=== PATIENT | male | born 1955 | race Caucasian/White ===

== ENCOUNTER 2024-04-28 22:22 | Inpatient (IN) | payer MEDICARE, SELFPAY ==
[2024-04-28 22:23] VITALS: BMI 25.3
[2024-04-28 22:31] VITALS: BP 135/97; PULSE 121; RESP 19; TEMP 36.4; O2SAT 96
--- NOTE | 2024-04-28 22:38 | PD.EDRME ---
Rapid Medical Screening Exam RME Arrival date/time: 04/28/24 22:22 68-year-old male with past medical history of pulmonary embolism currently on blood thinner presents to the emergency department complaining of abdominal pain with nausea and vomiting and rectal bleeding after attempted enema. Chief Complaint: Abdominal Pain Time Seen by Provider: 04/28/24 22:38 Vital signs: Vital Signs Temperature 97.6 F 04/28/24 22:31 Pulse Rate 121 H 04/28/24 22:31 Respiratory Rate 19 04/28/24 22:31 Blood Pressure 135/97 H 04/28/24 22:31 Pulse Oximetry (%) 96 04/28/24 22:31 Oxygen Delivery Method Room Air 04/28/24 22:31 Vital signs reviewed by provider: Yes
--- NOTE | 2024-04-28 22:39 | XR_ITS ---
Examination: AP chest single view Technique one AP portable upright chest single view Exam date and time: April 28, 2024 11:17 PM Indications: Chest pain today. Findings: The film is rotated RPO Normal heart size Moderate ectasia thoracic aorta No pulmonary edema or pneumonia Impression: No pneumonia or pulmonary edema
--- NOTE | 2024-04-28 22:39 | XR_ITS ---
Examination: CT abdomen with intravenous contrast CT pelvis with intravenous contrast 2-D coronal reconstructions 2-D sagittal reconstructions Date and time of exam:April 29, 2024 0008 hrs. Indications: Abdominal pain, vomiting, rectal bleeding onset today. CTDI: vol (mGy) 15.27 DLP: (mGycm) 606 Technique: Multiple axial sections of the abdomen and pelvis have been obtained. 64 slice high-resolution scanner used. 3 mm axial sections have been obtained, post intravenous injection 60 cc [id number] 2-D sagittal, coronal reconstructions obtained. Low dose protocols were performed. One or more of the following dose reduction techniques were used; automated exposure control, adjustment of the mA and/or KV according to patient size, use of iterative reconstruction technique. Findings: Significant right lower lobe pulmonary artery emboli Subcentimeter right lung pulmonary nodules Fluid distended esophagus with retrocardiac gastric hernia Subacute left-sided rib fractures 7 through 11 No focal liver lesions Gallbladder wall edema Edema and mucosal thickening involving the gastric antrum and duodenal bulb Dense abdominal aortic calcification 3.1 cm fat-containing umbilical hernia Fluid distended colon with focal narrowing in the sigmoid colon axial image 183 Contracted urinary bladder AP prostate dimension 4 cm Significant osteopenia Impression: Significant right lower lobe pulmonary artery emboli Recommend hepatobiliary sonography to confirm acute cholecystitis Antral gastritis active peptic disease duodenum bulb Distended bowel secondary to focal narrowing in the sigmoid colon, recommend colonoscopy to exclude malignant neoplasm of the sigmoid colon
--- NOTE | 2024-04-28 22:39 | EKG_ITS ---
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
[2024-04-28 23:22] LABS: Basophils # (Auto) 0.1 Thou/mm3 (0.0-0.2); Basophils % (Auto) 0 % (0-2.5); Eosinophils % (Auto) 0 % (0-10); Hemoglobin 12.9 g/dL (13.5-16.0); Immature Granulocytes % (Auto) 1 % (0-0); Immature Granulocytes Auto 0.13 Thou/mm3 (0.00-0.00); Lymphocytes # (Auto) 2.3 Thou/mm3 (1.0-4.8); Lymphocytes % (Auto) 10 % (10-50); Mean Corpuscular HGB Conc 31.5 g/dl (31.0-37.0); Mean Corpuscular Hemoglobin 26.9 pg (25.0-35.0); Mean Corpuscular Volume 85 fL (80-100); Monocytes % (Auto) 4 % (0-12); Neutrophils # (Auto) 20.1 Thou/mm3 (1.8-7.7); Neutrophils % (Auto) 85 % (37-80); Nucleated Red Blood Cell % 0 /100 WBC (0); Platelet Count 513 Thou/mm3 (140-440); RDW Standard Deviation 60.8 fL (35.1-43.9)
[2024-04-28 23:28] LABS: White Blood Count 23.6 Thou/mm3 (3.8-10.6)
[2024-04-28 23:32] LABS: INR 1.2 (0.9-1.3); Partial Thromboplastin Time 28.6 Seconds (22.0-36.0)
[2024-04-28 23:34] LABS: B-Type Natriuretic Peptide 20 pg/mL (0-100)
[2024-04-28 23:43] LABS: Alanine Aminotransferase < 7 U/L (10-49); Albumin, Serum 3.5 gm/dL (3.4-4.8); Alkaline Phosphatase 79 U/L (46-116); Anion Gap 10 (7-16); Aspartate Amino Transferase 11 U/L (0-34); BUN/Creatinine Ratio 18 Ratio (12-20); Bilirubin,Total 0.8 mg/dL (0.3-1.2); Blood Urea Nitrogen 14 mg/dL (9-23); Calcium 9.3 mg/dL (8.3-10.6); Calcium (Corrected) 9.7 mg/dL (8.5-10.1); Carbon Dioxide 26.3 mMol/L (20.0-31.0); Chloride 104 mMol/L (98-107); Creatinine (Component) 0.8 mg/dL (0.6-1.3); Estimated Creatinine Clearance 79.8 mL/min (>60); Globulin 3.4 gm/dL (2.3-3.5); Glucose 182 mg/dL (74-106); Magnesium 1.8 mg/dL (1.6-2.6); Osmolality,Calculated 284 (275-295); Potassium 3.6 mMol/L (3.4-5.1); Sodium 140 mMol/L (136-145); Total Protein 6.9 gm/dL (5.7-8.2); Troponin I < 0.002 ng/mL (0.0-0.045); eGFR > 60 See Note
[2024-04-28 23:55] LABS: LDH (Lactate Dehydrogenase) 203 U/L (120-246)
[2024-04-29] VITALS (12 sets, daily range): BP systolic 129–146; BP diastolic 76–92; PULSE 80–98; RESP 16–94; TEMP 36.2–36.8; O2SAT 92–96; BMI 25.3; BMI 25.2
[2024-04-29 01:09] LABS: Lactate (Lactic Acid) 2.6 mMol/L (0.4-2.0)
[2024-04-29 01:54] LABS: Collection Type, Urine Clean Catch; Squamous Epithelial Cell,Urine 0 /hpf (0-5)
[2024-04-29 01:59] LABS: Bilirubin,Urine Negative (Negative); Blood,Urine 1+ (Negative); Clarity,Urine Clear (Clear/Hazy); Color,Urine Yellow (Lt Yel-Yel); Culture Indicated,Urine Not Indicated; Glucose, Urine Negative (Negative); Ketones,Urine 1+ (Negative); Leukocyte Esterase,Urine Negative (Negative); Nitrite,Urine Negative (Negative); PH,Urine 6.5 (5.0-7.0); Protein,Urine 1+ (Neg - Trace); RBC,Urine 13 /hpf (0-3); Urobilinogen,Urine Negative mg/dL (0.0-1.0); WBC,Urine 6 /hpf (0-5)
--- NOTE | 2024-04-29 02:04 | PRELIM_ITS ---
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 Bibasilar atelectasis is seen. There is a small right lower lobe calcified granuloma. There are right middle and lower lobe small lung nodules, largest measuring 3 mm (axial images 1/287), stab le since the prior examination. Small left and trace right pleural effusions are noted.Again seen is moderate sized hiatal hernia is present with wall thickening of distal esophagus and gastroesophagea l junction, suggestive of reflux esophagitis, stable since the prior examination. There is mild wall thickening of pyloric antrum with mild surrounding fat stranding likely inflammatory, unchanged since the prior examination. Again seen is diffuse gallbladder wall thickening with mild pericholecystic e marta and fat stranding, unchanged since the prior examination. Again seen is 2 cm splenic hypodensi ty likely cyst. There is right renal hypodensity too small to characterize. The liver, pancreas and adrenals are unremarkable.There is an area of narrowing in the distal sigmoid colon with dilatation o f proximal large bowel loops. Prominent fluid filled small bowel loops are noted. The appendix is not visualized. The urinary bladder is not well distended with apparent wall thickening. Mildly enlarged prostate is noted. There is no free air. Trace perihepatic fluid is present.There is no adenopathy. There are subacute displaced left 7th to 10th rib fractures. Subacute nondisplaced fracture of left 11th rib is noted, stable since the prior examination. Mild to moderate degenerative changes are iden tified in the spine. Impression:Area of narrowing in the distal sigmoid colon with dilatation of prox imal large bowel loops, neoplastic or inflammatory etiology cannot be excluded. Recommend clinical co rrelation and followup with sigmoidoscopy. Right lower lobe pulmonary artery lobar and segmental thro mboembolism, also seen on the prior examination. Mild wall thickening of pyloric antrum with mild ana cristina rounding fat stranding likely inflammatory. Recommend follow-up. Diffuse gallbladder wall thickening with mild pericholecystic edema and fat stranding, unchanged since the prior examination.Other findin gs as described above. Report Electronically Signed By: Jc Frankel 04/29/2024 2:04:14 AM [EST]
--- NOTE | 2024-04-29 02:04 | PC.NURSE ---
Patient called out he is having abd pain 03/20. notified Dr. Ellis.
--- NOTE | 2024-04-29 02:40 | PD.EDABDPN ---
ED Abdominal Pain RME/HPI General Chief Complaint: Abdominal Pain Stated complaint: ABDOMINAL PAIN, VOMITING, RECTAL BLEEDING Time seen by provider: 04/28/24 22:38 Arrival date/time: 04/28/24 22:22 RME / HPI RME / HPI narrative: 04/28/24 22:22 68-year-old male with past medical history of pulmonary embolism currently on blood thinner presents to the emergency department complaining of abdominal pain with nausea and vomiting and rectal bleeding after attempted enema. ----- Dr. Ellis's Main ED Evaluation: 68yo male with a history of PE on Eliquis 10mg BID accompanied by his presents to the ED for a chief complaint of lower abdominal pain x last night. No radiation or migration. He reports associated abdominal distention, 2 episodes of N/V, diarrhea for the last 8 weeks, headache, and 50 lb weight loss over the last 8 weeks. noted there was some bleeding after the patient used an enema last night. Patient denies any fever, chills, sweating, UTI symptoms, dizziness, cough, chest pain, shortness of breath or any other associated symptoms. Denies any hx of DM or HTN. Denies any tobacco or alcohol use. No known allergies. Patient had an appointment with Dr. Lopez last week and was supposed to get a colonoscopy, but was told to wait for 6 months due to being on Eliquis. PSH includes appendectomy. Related Data Previous Rx's ?Medication ?Instructions ?Recorded ciprofloxacin HCl 0.3 % eye drops 2 drop ophthalmic (eye) Q4H #10 mL 01/20/19 Allergies Allergy/AdvReac Type Severity Reaction Status Date / Time No Known Allergies Allergy Verified 04/18/24 18:29 Review of Systems Review of Systems Systems Reviewed: All systems reviewed, normal except as documented Narrative Review of Systems: Gen: No fever, no chills, + weight loss EYES: No discharge, no visual changes, no pain HEENT: No ear pain, no congestion, no sore throat PULM: No shortness of breath, no cough, no congestion CV: No chest pain, no dyspnea on exertion, no palpitations GI: + nausea, + vomiting, + diarrhea, + pain, + distention, no constipation : No frequency, no urgency, no dysuria Musc/skel: No joint pain, no back pain Skin: No rash. Warm and dry. Psyc: No hallucinations, no depression Heme/Lymph: No easy bleeding or bruising tendencies Neuro: No weakness, + headache Past Medical History Past Medical History CARDIAC: Positive Hypercholesterolemia; Negative Cardiac Disorders or Congestive Heart Failure RESPIRATORY: Negative Chronic Obstructive Pulmonary Disease (COPD) or Asthma GENITOURINARY: Negative Renal Disease ENDOCRINE: Negative Diabetes Mellitus Type 1 or Diabetes Mellitus Type 2 HEMATOLOGIC: Negative Sickle Cell Disease Social History SMOKING STATUS: Never smoker ED Exam Narrative Physical exam: GEN. APPEARANCE: Patient is alert awake oriented x3 under no distress, laying down comfortably at 30-45?; does look acutely and chronically ill, but not toxic. Patient has good eye contact. Patient is cooperative. VITALS: All vitals were reviewed and the pulse ox is 95% on room air, which is normal according to my interpretation. HEENT: Normocephalic, atraumatic and nontender. Pupils are equal and reactive to light and accommodation. Oral mucosa are moist. NECK: Supple, nontender, no meningismus, no JVD. CHEST: Nontender on palpation, no deformity and no crepitus. CARDIOVASCULAR: Heart regular rhythm no murmur or gallop rub or extra beats; not tachycardic. LUNGS: Clear to auscultation bilaterally with symmetrical chest rise. No laboring tachypnea or wheezing. No intercostal subcostal retraction. No rales and no rhonchi. ABDOMEN: Soft, distended, tenderness mainly at the right side of the abdomen with guarding, but no rebound tenderness. There is no tenderness at the left side of the abdomen, but there is pain from the left to the right. He has a nonincarcerated umbilical hernia. GENITALIA: Not examined. RECTAL EXAM: Guaiac strongly positive. EXTREMITIES: Nontender. No edema. No cyanosis. Patient is able to move all 4 extremities well. SKIN: Warm and dry, no rashes noted. MUSCULOSKELETAL: No lumbar or midline bony tenderness. There is no CVA tenderness. No paraspinal muscle spasm or tenderness. NEURO: Cranial nerves II through XII grossly intact. There is no focalization. GCS is 15. PSYCHIATRIC: Patient is in normal mood and affect, cooperative. LYMPHATICS: No major lymphadenopathy noted. Course Course Course Narrative: CXR is ordered for determining the etiology of chest pain. 0044: Sepsis alert initiated. Orders made at this time are congruent with ED Adult Sepsis Order List. Re-evaluation is to be completed. 0330: NS IVF ordered. Quality Measures Possible source: GI tract/intra-abdominal Blood cultures ordered: yes Antibiotic ordered: Yes Pertinent labs: 04/28/24 23:04 Lactic Acid 2.6 H mMol/L (0.4-2.0) sepsis Orders Category Date Time Status CT Screening NOW Care 04/28/24 22:40 Active EKG (ED ONLY) *Do not use* NOW Care 04/28/24 22:39 Completed Consult to General Surgery Stat Cons 04/29/24 03:[address] abdomen pelvis w con Stat Exams 04/28/24 22:39 Taken EKG (ED Only) Stat Exams 04/28/24 22:39 Draft XR chest 1V portable Stat Exams 04/28/24 22:39 Completed B-Type Natriuretic Peptide Stat Lab 04/28/24 23:04 Completed Blood Culture (Lab) Stat Lab 04/29/24 01:03 Received CBC Stat Lab 04/28/24 23:04 Completed Comprehensive Metabolic Panel Stat Lab 04/28/24 23:04 Completed LDH (Lactate Dehydrogenase) Stat Lab 04/28/24 23:04 Completed Lactate (Lactic Acid) Stat Lab 04/29/24 01:03 Results Magnesium Stat Lab 04/28/24 23:04 Completed Occult Blood, Stool (LAB) Stat Lab 04/29/24 03:43 Ordered Partial Thromboplastin Time Stat Lab 04/28/24 23:04 Completed Prothrombin Time with INR Stat Lab 04/28/24 23:04 Completed Troponin I Stat Lab 04/28/24 23:04 Completed Urinalysis, C/S if Indicated Stat Lab 04/29/24 01:43 Completed Morphine Inj Med 04/29/24 03:31 Discontinued 4 mg IVP X1 ONE Ondansetron Inj [Zofran Inj] Med 04/29/24 03:31 Discontinued 4 mg IV X1 ONE Piper/Tazo 3.375 gm [Zosyn] Med 04/29/24 03:31 Discontinued 3.375 gm in 50 ml IV X1 Sodium Chloride 0.9% 1000 ml [Ns] 1,000 ml Med 04/29/24 03:31 Active IV 999 mls/hr Vital Signs Vital signs: Vital Signs Temperature 97.6 F 04/28/24 22:31 Pulse Rate 121 H 04/28/24 22:31 Respiratory Rate 19 04/28/24 22:31 Blood Pressure 135/97 H 04/28/24 22:31 Pulse Oximetry (%) 96 04/28/24 22:31 Oxygen Delivery Method Room Air 04/28/24 22:31 Procedures -ED EKG Interpretation #1: Date of EK04/28/24 Rate: 125 Interpretation: Interpreted by me EKG Impression: Normal sinus rhythm, No ectopy, Sinus tachycardia, Normal intervals, Normal axis and Non-specific ST-T Abdominal Pain MDM MDM Narrative MDM Narrative:: Scribe Attestation: 04/29/24 - Deidra Stover am scribing for and in the presence of Dr. Ellis. Patient comes in accompanied by his , who helps with the history. He states that he is got lower abdominal pain since last night and bloating of the abdomen and lots of making noises, like borborygmus, around all over the abdomen. There is no back pain. He vomited twice without any blood in them. He has had chronic diarrhea for the last 2 months and yesterday he had diarrhea 1-2 times a day without any blood in them. He did have blood passed 3 days ago from his rectum. He denies any fever chills or sweating. He denies UTI symptoms. He denies any fall or injury or loss of consciousness except for 2 months ago, on 02/25/2024, he fell down from a tree and he had multiple fractured ribs on the left side. Patient was here on 04/18/2024 again for the same problem and at that time he was transferred to [facility] where they did an endoscopy but no colonoscopy because he was vomiting the intestinal prep, therefore they canceled and they told him to follow-up with his doctor. Today he comes in with a recurrent problem of abdominal distention and abdominal pain and nausea vomiting. Looking at his old records, on 04/18/2024 when he was here his white count was 9.4 with a normal differential; today, his white count is up to 23.6 with 85 segs 0 bands and 10 lymphs and H&H is stable at 13 and 41. His urinalysis is negative as well as his chemistries are all normal including his BUN and creatinine. Today an abdominal and pelvic CT with IV contrast was done and it shows again areas of filling defects in the right lower lobe segmental pulmonary artery branches likely chronic thrombosis unchanged since the prior exam on 04/18/2024. Also again seen is diffuse gallbladder wall thickening with mild pericholecystic edema and fat stranding indicating that he has chronic acalculous cholecystitis, unchanged from the previous exam. Also, he has area of narrowing in the distal sigmoid colon with dilatation of the proximal large bowels neoplastic etiology cannot be excluded according to the telemetry radiologist. This was also present in his previous CAT scan of 04/18/2024. 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 I will hydrate him, give him antibiotics and also put an NG tube to low suction. His rectal exam showed guaiac strongly positive stools. I discussed this case with the resident, Dr. Brink, PGY2, who asked me to talk to the surgeon on-call. I discussed the case with Dr. Hopper at 3:30 in the morning and he will being consult in the morning. Obviously, because of his guaiac positive stools, we have to stop his Eliquis, before they are able to do colonoscopy on him. Provider Notation: Although this document has been carefully reviewed, there may still be some phonetic and other typographical errors. These errors are purely grammatical due to imperfections in the software program and should not be construed in any way to compromise the substance of the patient's medical care during this visit. Patient data External records reviewed:: [facility] previous records (Per chart review, patient was seen here on 04/19/24 for a left hemothorax and was transferred to [facility].) Clinical information provided by:: patient and spouse Social determinants that could affect healthcare access:: none Patient has the following chronic illnesses:: HLD How is presenting disease/condition affected by chronic disease/condition?: uneffected by Evaluation data The following diagnostics were reviewed and interpreted by me:: lab results, radiology exam(s) and EKG tracing(s) Lab and/or radiology exams considered but not ordered:: none Interpretation Summary: See above under MDM narrative. ---- [facility] Report Signed Patient: ARI MEJIA [facility]. Record#: [id number] Birthdate: 1955 Age/Sex: 68 / M Location: [facility] Attending Dr: Ordering Physician: Heidi Gipson (HEALTH MANAGEMENT CONSULTANT),Pavel CENTENO Date of Service: 04/28/24 Procedure(s): XR chest 1V portable Accession Number(s): [id number] cc: Khurram Alexandra MD; Ramon Young MD; Heidi Gipson (HEALTH MANAGEMENT CONSULTANT),Pavel CENTENO~ Examination: AP chest single view Technique one AP portable upright chest single view Exam date and time: April 28, 2024 11:17 PM Indications: Chest pain today. Findings: The film is rotated RPO Normal heart size Moderate ectasia thoracic aorta No pulmonary edema or pneumonia Impression: No pneumonia or pulmonary edema Dictated By: Khurram Alexandra MD Signed By: <Electronically signed by Khurram Alexandra MD in OV> 04/28/24 2311 ------ [facility] Preliminary Report Draft Patient: ARI MEJIA [facility]. Record#: [id number] Birthdate: 1955 Age/Sex: 68 / M Location: [facility] Attending Dr: Ordering Physician: Date of Service: Procedure(s): Accession Number(s): cc: ~ CT scan of the abdomen and pelvis with intravenous contrast (axial sections with sagittal and coronal reformats) April 29, 2024 0006 hours Clinical History: Abdominal pain with vomiting Compared with prior study dated April 18, 2024 Findings: Again seen are filling defects in the right lower lobe segmental pulmonary artery branches hypodense, likely chronic thrombosis, unchanged since the prior examination. Bibasilar atelectasis is seen. There is a small right lower lobe calcified granuloma. There are right middle and lower lobe small lung nodules, largest measuring 3 mm (axial images 1287), stable since the prior examination. Small left and trace right pleural effusions are noted. Again seen is moderate sized hiatal hernia is present with wall thickening of distal esophagus and gastroesophageal junction, suggestive of reflux esophagitis, stable since the prior examination. There is mild wall thickening of pyloric antrum with mild surrounding fat stranding likely inflammatory, unchanged since the prior examination. Again seen is diffuse gallbladder wall thickening with mild pericholecystic edema and fat stranding, unchanged since the prior examination. Again seen is 2 cm splenic hypodensity likely cyst. There is right renal hypodensity too small to characterize. The liver, pancreas and adrenals are unremarkable. There is an area of narrowing in the distal sigmoid colon with dilatation of proximal large bowel loops. Prominent fluid filled small bowel loops are noted. The appendix is not visualized. The urinary bladder is not well distended with apparent wall thickening. Mildly enlarged prostate is noted. There is no free air. Trace perihepatic fluid is present.There is no adenopathy. There are subacute displaced left 7th to 10th rib fractures. Subacute nondisplaced fracture of left 11th rib is noted, stable since the prior examination. Mild to moderate degenerative changes are identified in the spine. Impression: Area of narrowing in the distal sigmoid colon with dilatation of proximal large bowel loops, neoplastic or inflammatory etiology cannot be excluded. Recommend clinical correlation and followup with sigmoidoscopy. Right lower lobe pulmonary artery lobar and segmental thromboembolism, also seen on the prior examination. Mild wall thickening of pyloric antrum with mild surrounding fat stranding likely inflammatory. Recommend follow-up. Diffuse gallbladder wall thickening with mild pericholecystic edema and fat stranding, unchanged since the prior examination. Other findings as described above. Report Electronically Signed By: Jc Frankel 04/29/2024 2:04:14 AM [EST] Medications / Prescriptions Medications or Prescriptions considered but not ordered:: none Medication administrations:: Medication Administration History Sodium Chloride (Ns) 1,000 mls @ 999 mls/hr IV .Q1H1M ONE Stop: 04/29/24 04:31 Last Admin: 04/29/24 03:42 Dose: 999 mls/hr Documented By: TIM Discontinued Medications Piperacillin/Tazobactam/Dextrose (Zosyn) 3.375 gm in 50 mls @ 100 mls/hr IV X1 ONE Stop: 04/29/24 04:00 Last Admin: 04/29/24 03:42 Dose: 100 mls/hr Documented By: TIM Morphine Sulfate (Morphine Sulf Inj 10 Mg/Ml Vial) 4 mg IVP X1 ONE Stop: 04/29/24 03:32 Last Admin: 04/29/24 03:38 Dose: 4 mg Documented By: TIM Ondansetron HCl (Ondansetron Inj 2 Mg/Ml Inj 2 Ml) 4 mg IV X1 ONE; Protocol Stop: 04/29/24 03:32 Last Admin: 04/29/24 03:39 Dose: 4 mg Documented By: CB see above, if any Consultations Consultation(s) initiated? (list below): Yes Diagnosis Differential diagnosis abdominal pain: small bowel obstruction and other (carcinoma of the sigmoid colon, UTI, pyelonephritis, PE) Most likely diagnosis given after review of the tests above:: see below Admission Indicated Admission indicated?: indicated Admission Request Was there a request for admission?: Yes Admission Attestation Admission request attestation: Discussed case with [] from Hospitalist service regarding admission. Discussed patients ED course, exam findings, labs, and radiology results. The Hospitalist [agrees,declines] to accept the patient for admission. Disposition Plan Disposition Plan: Admit Critical Care Time Critical Care Time Critical Care Time: Yes Total Critical Care Time (min.): 45 Attestation: The high probability of sudden, clinically significant deterioration in the patient?s condition required the highest level of my preparedness to intervene urgently. The services I provided to this patient were to treat and/or prevent clinically significant deterioration. Services included the following: chart data review, reviewing nursing notes and/or old charts, documentation time, beverage sales consultant collaboration regarding findings and treatment options, medication orders and management, direct patient care, vital sign assessments and ordering, interpreting and reviewing diagnostic studies and lab tests. Aggregate critical care time includes only time during which I was engaged in work directly related to the patient?s care, as described above, whether at bedside or elsewhere in the Emergency Department. It did not include time spent performing other reported procedures or the services of residents, students, nurses or physician assistants. Discharge Plan Plan Patient Disposition: Admit Acute Care w/in Hospital Prescriptions/Referrals Prescriptions/Med Rec: No Action ciprofloxacin HCl 0.3 % drops 2 drop OPHTHALMIC Q4H Qty: 10 0RF Referrals: Ramon Young MD [Primary Care Provider] - In 1 week Problem List Clinical Impression: Partial small bowel obstruction, Acute lower GI bleeding, Acalculous cholecystitis, Hx of pulmonary embolus, Fracture of five ribs of left side, Neoplasm of sigmoid colon Patient/Caregiver Discharge Instructions Print Language: Surinamese Stand Alone Forms: Zarina Award Info., Patient Portal Info Letter
[2024-04-29] MEDS: MORPHINE SULF INJ 10 MG/ML VIAL 4 MG IVP (03:38)
[2024-04-29] MEDS: ONDANSETRON INJ 2 MG/ML INJ 2 ML 4 MG IV ×2 (03:39→06:11)
[2024-04-29] MEDS: PIPER/TAZO 3.375 GM 3.375 GM/50 ML BAG IV (03:42)
[2024-04-29] MEDS: SODIUM CHLORIDE 0.9% 1000 ML 1,000 ML 999 ML IV (03:42)
[2024-04-29 04:07] LABS: Reflex Lactate? Y
--- NOTE | 2024-04-29 04:31 | XR_ITS ---
Examination: Abdomen AP single view Technique: AP portable supine abdomen, single view Exam date and time: April 29, 2024 0451 hrs. Indications: Abdominal distention this week Findings: The film does not include the hemidiaphragms Contrast in the bladder and kidneys Moderate colonic ileus Small bowel air distention not identified Impression: Moderate colonic ileus
--- NOTE | 2024-04-29 04:33 | ESHP_ITS ---
<Statement entered by Jean Harris MD - 04/29/24 09:24> I was present for the essential components of the history, physical examination, diagnosis, and treatment plan with the resident. I have reviewed the documentation, discussed the case with the resident and agree with the patient's care as documented by the resident. High risk complex 75 mins. Jean Harris MD Documentation for date of: 04/29/24 HPI History of Present Illness History of present illness: 68-year-old male with past medical history of PE on Eliquis, presented to ED with chief complaints of abdominal pain and distention that progressively was getting worse. Patient states that pain started last night, abdominal distention was getting worse, and patient also had episodes of intractable vomiting twice without any blood in it. Patient stated that he has been having chronic diarrhea on and off for the last 2 months and yesterday he had 2 episodes of diarrhea. Patient stated that 8 weeks ago he fell down from the tree and had a multiple fracture ribs of the left side, and was admitted to [facility] at that time, afterwards patient was discharged to SNF for rehabilitation. He presented to ED on 04/19/2024 with the same symptoms, CT was done by that time which revealed again PE, multiple left subacute rib fracture, flail chest with mild the left hemithorax, acute acalculous cholecystitis. At that time patient was transferred to [facility] for further evaluation. He did have endoscopy at [facility], however colonoscopy was not done as patient was not able to complete bowel preparation. Also patient stated that since PE was diagnosed patient was placed on Eliquis, and he started to notice that his stool was becoming black, also patient stated that he had enema at home performed by and they also noticed some bright red which he stated that might be related with chronic hemorrhoids that he has. On presentation patient was tachycardic with heart rate of 121, labs revealed leukocytosis with WBC of 23.6, with a left shift hemoglobin was stable 12.9, hematocrit 41.0, platelet is 513, Lactic acid was 2.6, glucose 182, the rest of the labs unremarkable. CT revealed: Area of narrowing in the distal sigmoid colon with dilatation of proximal large bowel loops, neoplastic or inflammatory etiology cannot be excluded. Recommend clinical correlation and followup with sigmoidoscopy. Right lower lobe pulmonary artery lobar and segmental thromboembolism, also seen on the prior examination. Mild wall thickening of pyloric antrum with mild surrounding fat stranding likely inflammatory. Recommend follow-up. Diffuse gallbladder wall thickening with mild pericholecystic edema and fat stranding, unchanged since the prior examination. In ED patient received morphine 4 mg, Zosyn, 1 L of NS, patient will be admitted for abdominal pain and distention secondary due to SBO, NG tube will be placed, Dr Hopper was contacted in ED and agreed to be consulted. Past medical history hypertension, multiple rib fracture, flail chest status post fall, PE on Eliquis Past surgical history appendectomy Medication Eliquis Allergies NKDA Social history patient denies smoking, drinking or alcohol use Review of Systems Review of Systems Systems Reviewed: All systems reviewed, normal except as documented Exam Vital Signs Temp Pulse Resp BP Pulse Ox O2 Del Method 98.1 F 84 20 144/92 H 95 Room Air 04/29/24 03:45 04/29/24 03:45 04/29/24 03:45 04/29/24 03:45 04/29/24 03:45 04/29/24 03:45 Narrative Exam GENERAL: no acute distress, AAO x3, ill-appearing male, comfortably laying in bed HEENT: Head AT/ NC. Mucous membranes dry. PERRL. NECK: Supple, no lymphadenopathy, no carotid bruits. CARDIOVASCULAR: RRR. Normal S1/S2, No m/r/g. No pitting edema of bilateral LEs. RESPIRATORY: CTAB. No wheezing, rhonchi, crackles. GASTROINTESTINAL: Abdomen soft, distended, bowel sound decreasing for quadrants, umbilical hernia noted NEUROLOGICAL: CN II-XII grossly intact. No focal deficits. Sensation intact, symmetric. PSYCHIATRIC: Awake and alert, not agitated, normal mood and affect. INTEGUMENTARY: No obvious rashes, no jaundice, normal turgor. Results: Labs 04/28/24 23:04 04/28/24 23:04 Labs: Short CBC 04/28/24 Range/Units 23:04 WBC 23.6 H (3.8-10.6) Thou/mm3 Hgb 12.9 L (13.5-16.0) g/dL Hct 41.0 (41.0-53.0) % Plt Count 513 H D (140-440) Thou/mm3 BMP 04/28/24 23:04 Sodium 140 Potassium 3.6 Chloride 104 Carbon Dioxide 26.3 BUN 14 Creatinine 0.8 Glucose 182 H Calcium 9.3 Cardiac Enzymes 04/28/24 Range/Units 23:04 Troponin I < 0.002 (0.0-0.045) ng/mL Liver Function 04/28/24 Range/Units 23:04 Total Bilirubin 0.8 (0.3-1.2) mg/dL AST 11 (0-34) U/L ALT < 7 L (10-49) U/L Alkaline Phosphatase 79 (46-116) U/L Albumin 3.5 (3.4-4.8) gm/dL Urine 04/29/24 Range/Units 01:43 Urine Color Yellow (Lt Yel-Yel) Urine Clarity Clear (Clear/Hazy) Urine pH 6.5 (5.0-7.0) Ur Specific [place] 1.020 (1.001-1.035) Urine Protein 1+ A (Neg - Trace) Urine Glucose (UA) Negative (Negative) Quality Measures Quality Measures sepsis Current suspected stage: sepsis Possible source: GI tract/intra-abdominal Blood cultures ordered: yes Antibiotic ordered: Yes Advance care planning discussed with:: patient Medications Home Medications and Allergies Allergies Allergy/AdvReac Type Severity Reaction Status Date / Time No Known Allergies Allergy Verified 04/18/24 18:29 Visit Medications Sodium Chloride (Ns) 1,000 mls @ 75 mls/hr IV .[id number] ONE Stop: 04/29/24 17:49 Metronidazole (Flagyl 500 Mg Iv) 500 mg in 100 mls @ 200 mls/hr IV Q8HR RICKIE Stop: 05/06/24 04:29 Ciprofloxacin/Dextrose (Cipro Ivpb) 400 mg in 200 mls @ 200 mls/hr IV Q12HR RICKIE Stop: 05/06/24 04:29 Morphine Sulfate (Morphine Sulf Inj 10 Mg/Ml Vial) 2 mg IVP Q4H PRN PRN Reason: PAIN SCALE 7-10 (Severe Stop: 05/04/24 04:24 Ondansetron HCl (Ondansetron Inj 2 Mg/Ml Inj 2 Ml) 4 mg IV Q6H PRN; Protocol PRN Reason: NAUSEA OR VOMITING Stop: 05/29/24 04:24 Discontinued Medications Sodium Chloride (Ns) 1,000 mls @ 999 mls/hr IV .[id number] ONE Stop: 04/29/24 04:31 Last Admin: 04/29/24 03:42 Dose: 999 mls/hr Piperacillin/Tazobactam/Dextrose (Zosyn) 3.375 gm in 50 mls @ 100 mls/hr IV X1 ONE Stop: 04/29/24 04:00 Last Infusion: 04/29/24 04:18 Dose: Infused Morphine Sulfate (Morphine Sulf Inj 10 Mg/Ml Vial) 4 mg IVP X1 ONE Stop: 04/29/24 03:32 Last Admin: 04/29/24 03:38 Dose: 4 mg Ondansetron HCl (Ondansetron Inj 2 Mg/Ml Inj 2 Ml) 4 mg IV X1 ONE; Protocol Stop: 04/29/24 03:32 Last Admin: 04/29/24 03:39 Dose: 4 mg Assessment & Plan Plan 68-year-old male with past medical history of PE on Eliquis, hypertension, hyperlipidemia, history of multiple rib fracture and fracture status post fall was admitted for SBO treatment and management. #Sepsis possible source of abdomen Patient met 3 out of 4 SIRS criteria, tachypneic, elevated WBC, lactic acid is elevated Most likely source of infection abdomen In ED patient was given IVF and Zosyn -Trend lactic acid -ciprofloxacin and metronidazole -Follow-up with C. difficile, as patient stated that he was on antibiotics recently and was having couple of episodes of small diarrhea -Follow-up with the blood culture/urine culture -Daily CBC CMP #Concern for mechanical SBO in the setting of possible malignancy #Abdominal pain/distention due to above Patient presented with chief complaints of abdominal pain, CT abdomen revealed: Area of narrowing in the distal sigmoid colon with dilatation of proximal large bowel loops, neoplastic or inflammatory etiology cannot be excluded. Recommend clinical correlation and followup with sigmoidoscopy. Mild wall thickening of pyloric antrum with mild surrounding fat stranding likely inflammatory. Recommend follow-up. Diffuse gallbladder wall thickening with mild pericholecystic edema and fat stranding, unchanged since the prior examination. -NPO -IVF -NG tube with intermittent low suction -Will decompress bowels first, consider Gastrografin serial test -Dr Hopper is on board, recommendations appreciated -Follow-up with a KUB -Pain management as needed -Obtain records from [facility] where patient was admitted recently and also had endoscopy done there #PE Patient was diagnosed with PE not certain when Patient is on Eliquis, however reported dark stool since starting the medication Today CT revealed right lower lobe pulmonary artery lobar and segmental thromboembolism -Hold Eliquis in the setting of possible GI bleed -FOBT -Consider GI evaluation inpatient or outpatient -However hemoglobin is stable, monitor H&H, transfuse if hemoglobin less than 7 #Multiple rib fracture Patient stated that he fell about 8 weeks ago from the tree, at that time CT chest revealed multiple rib fracture without flare chest with mild left hemithorax, patient was managed in [facility] -Will obtain records from [facility] Disposition: MedSurg DVT prophylaxis: SCDs, holding Eliquis, pending FOBT, concern for GI bleed GI prophylaxis: PPI Diet: N.p.o. Lines: PIV CODE STATUS:Full code Patient care was discussed with attending physician Dr. Kimberly Brink MD PGY-2
[2024-04-29] MEDS: metroNIDAZOLE/NS 500 MG IVPB 500 MG/100 ML BAG 200 MG IV ×3 (04:43→22:45)
[2024-04-29] MEDS: SODIUM CHLORIDE 0.9% 1000 ML 1,000 ML 75 ML IV (04:44)
[2024-04-29 05:31] LABS: Lactate (Lactic Acid) 1.9 mMol/L (0.4-2.0)
[2024-04-29 05:36] LABS: Basophils % (Auto) 0 % (0-2.5); Eosinophils % (Auto) 0 % (0-10); Hematocrit 33.4 % (41.0-53.0); Hemoglobin 10.3 g/dL (13.5-16.0); Immature Granulocytes % (Auto) 1 % (0-0); Immature Granulocytes Auto 0.08 Thou/mm3 (0.00-0.00); Lymphocytes # (Auto) 1.1 Thou/mm3 (1.0-4.8); Lymphocytes % (Auto) 8 % (10-50); Mean Corpuscular HGB Conc 30.8 g/dl (31.0-37.0); Mean Corpuscular Volume 87 fL (80-100); Monocytes # (Auto) 0.6 Thou/mm3 (0.0-0.8); Monocytes % (Auto) 4 % (0-12); Neutrophils # (Auto) 12.9 Thou/mm3 (1.8-7.7); Neutrophils % (Auto) 88 % (37-80); Nucleated Red Blood Cell % 0 /100 WBC (0); Platelet Count 348 Thou/mm3 (140-440); RDW Standard Deviation 63.7 fL (35.1-43.9); Red Blood Count 3.82 Miln/mm3 (4.50-5.90); White Blood Count 14.7 Thou/mm3 (3.8-10.6)
[2024-04-29] MEDS: CIPROFLOXACIN/D5w 400 MG IVPB 400 MG/200 ML BAG 200 MG IV ×2 (05:44→21:14)
[2024-04-29 05:59] LABS: OBS Card Lot # 23001; OBS Performed By boted; OBS QC OK? Yes; Occult Blood, Stool Positive (Negative)
[2024-04-29] MEDS: MORPHINE SULF INJ 10 MG/ML VIAL 2 MG IVP ×5 (06:11→22:45)
[2024-04-29 06:12] LABS: OBS Developer Lot # 23003
[2024-04-29 06:21] LABS: Alanine Aminotransferase < 7 U/L (10-49); Albumin, Serum 2.9 gm/dL (3.4-4.8); Albumin/Globulin Ratio 1.1 (1.2-2.2); Alkaline Phosphatase 62 U/L (46-116); Anion Gap 7 (7-16); Aspartate Amino Transferase < 8 U/L (0-34); BUN/Creatinine Ratio 23 Ratio (12-20); Bilirubin,Total 0.7 mg/dL (0.3-1.2); Blood Urea Nitrogen 14 mg/dL (9-23); Calcium 8.3 mg/dL (8.3-10.6); Calcium (Corrected) 9.2 mg/dL (8.5-10.1); Carbon Dioxide 29.4 mMol/L (20.0-31.0); Cardiac Risk Estimate 2.2 RATIO (4.0-6.7); Chloride 105 mMol/L (98-107); Cholesterol 102 mg/dL (132-200); Creatinine (Component) 0.6 mg/dL (0.6-1.3); Estimated Creatinine Clearance 106.3 mL/min (>60); Globulin 2.7 gm/dL (2.3-3.5); Glucose 125 mg/dL (74-106); HDL Cholesterol 46 mg/dL (40-60); LDL Cholesterol,Calculated 33 mg/dL (0-130); Magnesium 1.6 mg/dL (1.6-2.6); Osmolality,Calculated 282 (275-295); Phosphorous 4.5 mg/dL (2.4-5.1); Potassium 3.1 mMol/L (3.4-5.1); Sodium 141 mMol/L (136-145); Thyroid Stimulating Hormone 1.62 uIU/mL (0.55-4.78); Total Protein 5.6 gm/dL (5.7-8.2); Triglycerides 115 mg/dL (30-150); eGFR > 60 See Note
--- NOTE | 2024-04-29 07:15 | PC.NURSE ---
In to assess pt. Pt resting quietly at this time without any complaints. Plan to admit.
--- NOTE | 2024-04-29 07:45 | CHAP ---
Visited patient in the ER. I gave some words of comfort and encouragement and prayer.
--- NOTE | 2024-04-29 08:17 | PC.NURSE ---
ptarrived to [facility] floor
--- NOTE | 2024-04-29 08:44 | XR_ITS ---
Examination: AP chest single view TECHNIQUE: AP portable upright chest single view Exam date and time: April 29, 2024 at 0903 hours INDICATIONS: Post orogastric tube placement FINDINGS: Orogastric tube is coiled likely in a retrocardiac gastric hernia No significant cardiac enlargement Moderate ectasia thoracic aorta Multiple left-sided rib fractures No pneumothorax Reduced inspiratory effort IMPRESSION: Orogastric tube likely projects within the retrocardiac gastric hernia
--- NOTE | 2024-04-29 11:13 | PD.SURCONS ---
HPI Consult details Consult date: 04/29/24 Reason for consultation narrative: Abdominal distention with bowel obstruction History of present illness: 68-year-old male with history of hypertension sustained a fall about 8 weeks ago after which she developed rib fractures and hemothorax. He was transferred to [facility] where he was managed. He was noted to have pulmonary embolism started on Eliquis. Patient developed black and tarry stool. Over the past few days he has noted increased abdominal distention with nausea. He denies history of significant weight loss prior to his hospitalizations, changes in bowel habits or history of blood per rectum. He states that he has had colonoscopy over 15 years ago that revealed some polyps. CT scan of abdomen pelvis revealed dilated loops of small bowel, inflammatory or neoplastic process in the sigmoid colon. An NG tube was placed and patient was admitted for further management. Review of Systems Constitutional Constitutional: Denies chills and Denies fever(s) Cardiovascular Cardiovascular: Denies chest pain Respiratory Respiratory: Denies cough Gastrointestinal Gastrointestinal: Reports abdominal pain, Denies nausea and Denies vomiting Genitourinary Genitourinary: Denies difficulty urinating Past Medical History Surgical History OTHER SURGICAL HX: Appendectomy, tonsillectomy, hemorrhoidectomy Social History SMOKING STATUS: Former smoker SUBSTANCE USE: does not use ALCOHOL: Never Meds Home Medications and Allergies Allergies Allergy/AdvReac Type Severity Reaction Status Date / Time No Known Allergies Allergy Verified 04/18/24 18:29 Exam Vital Signs Temp Pulse Resp BP Pulse Ox O2 Del Method 97.8 F 89 16 134/85 H 96 Room Air 04/29/24 08:17 04/29/24 08:17 04/29/24 08:17 04/29/24 08:17 04/29/24 08:17 04/29/24 08:17 Constitutional Constitutional: no acute distress Routine Abdominal Exam Abdominal: Present soft Comments: Abdomen is soft but distended. He has minimal tenderness to palpation throughout abdomen, no rebound tenderness or peritonitis at this time. 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 He also has pulmonary embolism that will require anticoagulation Plan Eliquis has been held, but patient needs to be on at least prophylactic anticoagulation. Will start patient on GoLytely through the NG tube slowly in hopes of bowel preparation in anticipation for a colonoscopy. If patient cannot tolerate bowel preparation and clinical symptoms worsen he will require emergent laparotomy with colostomy.
--- NOTE | 2024-04-29 12:17 | XR_ITS ---
Examination: AP chest single view Technique one AP portable sitting chest single view Exam date and time: April 29, 2024 1253 hours INDICATIONS: Status post orogastric tube placement FINDINGS: Orogastric tube is coiled presumably in a retrocardiac gastric hernia Normal heart size Multiple left-sided rib fractures IMPRESSION: The orogastric tube is coiled in a retrocardiac gastric hernia
[2024-04-29 14:35] LABS: Partial Thromboplastin Time 31.7 Seconds (22.0-36.0)
--- NOTE | 2024-04-29 14:55 | PC.NURSE ---
notified hospitaloist team per Dr. Hopper put pt on PPN
[2024-04-29 14:56] LABS: Collection Type, Urine Clean Catch
[2024-04-29 15:03] LABS: Bilirubin,Urine Negative (Negative); Blood,Urine Negative (Negative); Clarity,Urine Clear (Clear/Hazy); Color,Urine Yellow (Lt Yel-Yel); Glucose, Urine Negative (Negative); Ketones,Urine Trace (Negative); Leukocyte Esterase,Urine Negative (Negative); Nitrite,Urine Negative (Negative); Protein,Urine 1+ (Neg - Trace); RBC,Urine 6 /hpf (0-3); Squamous Epithelial Cell,Urine < 1 /hpf (0-5); Urobilinogen,Urine Negative mg/dL (0.0-1.0); WBC,Urine 3 /hpf (0-5)
[2024-04-29] MEDS: Heparin/D5w 25K 250 ML Ivpb 25,000 UNIT/250 ML BAG 12.819 UNIT IV (15:06)
[2024-04-29 15:19] LABS: Specific Gravity,Urine > 1.030 (1.001-1.035)
--- NOTE | 2024-04-29 15:37 | ESPR_ITS ---
<Statement entered by Anita Levy MD - 05/01/24 05:41> Patient seen and examined at beside. Patient will have a NG tube and start Golytley per Dr. Hopper. Patient will also start TPN today as patient will be getting Golytely at a slow rate. I discussed with and supervised the internet marketing director physician who took care of this patient. I personally saw and examined the patient and discussed the assessment and plan with the entire medicine team, including my attending , I agree with most of the assessment and plan as documented below Anita Levy M.D. PGY-2 Documentation for date of: 04/29/24 Subjective Subjective Interval history: Mr. Onel Yoder is a 68-year-old male with past medical history of PE on Eliquis, presented to ED on 04/28/2024 with chief complaints of abdominal pain and distention that progressively was getting worse x1 day. Patient himself is nonverbal at baseline and unable to communicate, but his control supervisor at bedside was able to provide a history. Medical Office Manager stated that the pain started last night along with abdominal distension, accompanied by intractable nausea and vomiting with no visible blood. She also notes that he has been having frequent diarrhea for the last 2 months, and had two episodes of diarrhea yesterday. Medical Office Manager denies that patient has had any bloody bowel movements recently. Medical Office Manager notes that approximately 8 weeks ago, patient fell from a tree causing multiple left-sided rib fractures, for which he was treated at [facility] and discharged back to [facility] for rehabilitation. Had a presentation to [place] ED on 04/19/2024 for chest pain, found on CT to be pulmonary embolism with flail chest and acute acalculous cholecystitis. He was transferred to [facility] again and had an endoscopy performed but no colonoscopy, as pt was not able to complete bowel prep. Findings from EGD unknown per control supervisor. Patient was placed on Eliquis for his pulmonary embolism at this time. On arrival to ED, patient was tachycardic at 121, WBC 23.6, Hgb 12.9, Hct 41.0, platelets 513, lactic 2.6, glucose 182. CT abdomen demonstrated an area of narrowing in the distal sigmoid colon with dilatation of proximal large bowel loops, neoplastic or inflammatory etiology cannot be excluded. Sigmoidoscopy recommended at that time. CT abdomen also positive for right lower lobe pulmonary artery lobar and segmental thromboembolism, mild wall thickening of pyloric antrum with mild surrounding fat stranding likely inflammatory, and diffuse gallbladder wall thickening with mild pericholecystic edema and fat stranding. In ED patient received morphine 4 mg, Zosyn, 1L of normal saline. Patient was admitted for abdominal pain and distention secondary due to SBO, NG tube was placed, Dr Hopper was contacted in ED and agreed to be consulted. Patient met 2/4 sepsis criteria, and with a possible infectious source in the abdomen, was suspected for sepsis and started on Ciprofloxacin and Flagyl. C. diff, urine, and blood cultures ordered. 04/29: This morning, patient's clinical status remains unchanged. He is still nonverbal and appears visually uncomfortable during palpation of abdomen, but unable to communicate any specific point of tenderness. Dr. Hopper recommends starting patient on TPN as he will not be able to undergo colonoscopy for several days, and will not be able to go to the operating room for several days after that. Appreciate further recommendations. Exam Vital Signs Temp Pulse Resp BP Pulse Ox O2 Del Method 97.2 F 96 17 134/85 H 92 L Room Air 04/29/24 12:00 04/29/24 12:44 04/29/24 12:44 04/29/24 12:00 04/29/24 12:00 04/29/24 12:00 Narrative Exam Gen: Awake, nonverbal at baseline, weak-appearing, no acute distress HEENT: NCAT, PERRLA, EOMI, MMM, anicteric conjunctivae. CVS: normal S1 and S2. RRR. No M/R/G. Resp: CTA B/L. No rhonchi, rales, crackles or wheezing. Abd: soft, diffusely tender to palpation, non-distended. BS+ in all 4 quadrants. MSK: Good ROM in BUE & BLE. No edema or rash. Neuro: Moves all extremities spontaneously Psych: appropriate mood and affect. Objective Labs 04/30/24 05:22 04/30/24 05:22 Labs: Laboratory Results - last 24 hr 04/28/24 04/29/24 04/29/24 23:04 01:43 03:45 WBC 23.6 H RBC 4.80 Hgb 12.9 L Hct 41.0 MCV 85 MCH 26.9 MCHC 31.5 RDW Std Deviation 60.8 H Plt Count 513 H D Neut % (Auto) 85 H Lymph % (Auto) 10 [place] % (Auto) 4 Eos % (Auto) 0 Baso % (Auto) 0 Neut # (Auto) 20.1 H Lymph # (Auto) 2.3 [place] # (Auto) 1.0 H Eos # (Auto) 0.0 Baso # (Auto) 0.1 Immature Gran # (Auto) 0.13 H Absolute Nucleated RBC 0.00 Immature Gran % 1 H Nucleated RBC % 0 PT 13.0 H INR 1.2 APTT 28.6 Sodium 140 Potassium 3.6 Chloride 104 Carbon Dioxide 26.3 Anion Gap 10 BUN 14 Creatinine 0.8 Estim Creat Clear Calc 79.8 eGFR > 60 BUN/Creatinine Ratio 18 Glucose 182 H Calculated Osmolality 284 Lactic Acid 2.6 H Calcium 9.3 Corrected Calcium 9.7 Phosphorus Magnesium 1.8 Total Bilirubin 0.8 AST 11 ALT < 7 L Alkaline Phosphatase 79 Lactate Dehydrogenase 203 Troponin I < 0.002 B-Natriuretic Peptide 20 Total Protein 6.9 Albumin 3.5 Globulin 3.4 Albumin/Globulin Ratio 1.0 L Triglycerides Cholesterol LDL Cholesterol, Calc HDL Cholesterol Cholesterol/HDL Ratio TSH Ur Collection Type Clean Catch Urine Color Yellow Urine Clarity Clear Urine pH 6.5 Ur Specific [place] 1.020 Urine Protein 1+ A Urine Glucose (UA) Negative Urine Ketones 1+ A Urine Blood 1+ A Urine Nitrite Negative Urine Bilirubin Negative Urine Urobilinogen (Auto) Negative Ur Leukocyte Esterase Negative Urine RBC 13 H Urine WBC 6 H Ur Squamous Epith Cells 0 Urine Bacteria None Ur Culture Indicated? Not Indicated Stool Occult Blood Positive A 04/29/24 04/29/24 04/29/24 04:39 13:26 14:34 WBC 14.7 H D RBC 3.82 L Hgb 10.3 L D Hct 33.4 L MCV 87 MCH 27.0 MCHC 30.8 L RDW Std Deviation 63.7 H Plt Count 348 D Neut % (Auto) 88 H Lymph % (Auto) 8 L [place] % (Auto) 4 Eos % (Auto) 0 Baso % (Auto) 0 Neut # (Auto) 12.9 H Lymph # (Auto) 1.1 [place] # (Auto) 0.6 Eos # (Auto) 0.0 Baso # (Auto) 0.0 Immature Gran # (Auto) 0.08 H Absolute Nucleated RBC 0.00 Immature Gran % 1 H Nucleated RBC % 0 PT INR APTT 31.7 Sodium 141 Potassium 3.1 L D Chloride 105 Carbon Dioxide 29.4 Anion Gap 7 BUN 14 Creatinine 0.6 Estim Creat Clear Calc 106.3 eGFR > 60 BUN/Creatinine Ratio 23 H Glucose 125 H D Calculated Osmolality 282 Lactic Acid 1.9 Calcium 8.3 Corrected Calcium 9.2 Phosphorus 4.5 Magnesium 1.6 Total Bilirubin 0.7 AST < 8 ALT < 7 L Alkaline Phosphatase 62 D Lactate Dehydrogenase Troponin I B-Natriuretic Peptide Total Protein 5.6 L Albumin 2.9 L D Globulin 2.7 Albumin/Globulin Ratio 1.1 L Triglycerides 115 Cholesterol 102 L LDL Cholesterol, Calc 33 HDL Cholesterol 46 Cholesterol/HDL Ratio 2.2 L TSH 1.62 Ur Collection Type Clean Catch Urine Color Yellow Urine Clarity Clear Urine pH 6.0 Ur Specific [place] > 1.030 Urine Protein 1+ A Urine Glucose (UA) Negative Urine Ketones Trace Urine Blood Negative Urine Nitrite Negative Urine Bilirubin Negative Urine Urobilinogen (Auto) Negative Ur Leukocyte Esterase Negative Urine RBC 6 H Urine WBC 3 Ur Squamous Epith Cells < 1 Urine Bacteria None Ur Culture Indicated? Stool Occult Blood Quality Measures Quality Measures sepsis Current suspected stage: sepsis Possible source: GI tract/intra-abdominal Blood cultures ordered: yes Antibiotic ordered: Yes Advance care planning discussed with:: patient Assessment & Plan Assessment Current Active Medications: Generic Name Dose Route Start Last Admin Trade Name Freq PRN Reason Stop Dose Admin Sodium Chloride 1,000 mls @ 75 mls/hr 04/29/24 04:30 04/29/24 04:44 Ns IV 04/29/24 17:49 75 mls/hr .[id number] ONE Administration Metronidazole 500 mg in 100 mls @ 200 mls/hr 04/29/24 04:30 04/29/24 06:26 Flagyl 500 Mg Iv IV 05/06/24 04:29 Not Given Q8HR RICKIE Ciprofloxacin/Dextrose 400 mg in 200 mls @ 200 mls/hr 04/29/24 04:30 04/29/24 09:48 Cipro Ivpb IV 05/06/24 04:29 Not Given Q12HR RICKIE Heparin Sodium/Dextrose 25,000 unit in 250 mls @ 12.819 mls/hr 04/29/24 12:00 04/29/24 15:06 Heparin In D5w Ivpb IV 05/13/24 11:59 18 units/kg/hr .[id number] RICKIE 12.819 mls/hr Administration Protocol 18 UNITS/KG/HR Morphine Sulfate 2 mg 04/29/24 04:25 04/29/24 14:32 Morphine Sulf Inj 10 Mg/Ml Vial IVP 05/04/24 04:24 2 mg Q4H PRN Administration PAIN SCALE 7-10 (Severe Ondansetron HCl 4 mg 04/29/24 04:25 04/29/24 06:11 Ondansetron Inj 2 Mg/Ml Inj 2 Ml IV 05/29/24 04:24 4 mg Q6H PRN Administration NAUSEA OR VOMITING Protocol Pantoprazole Sodium 40 mg 04/29/24 09:00 04/29/24 13:02 Pantoprazole Inj 40 Mg Vial IVP 05/29/24 08:59 Not Given QDAY RICKIE Plan Mr. Onel Yoder is a 68-year-old male with past medical history of PE on Eliquis, presented to ED on 04/28/2024 with chief complaints of abdominal pain and distention that progressively was getting worse x1 day. Patient himself is nonverbal at baseline and unable to communicate, but his control supervisor at bedside was able to provide a history. Medical Office Manager stated that the pain started last night along with abdominal distension, accompanied by intractable nausea and vomiting with no visible blood. She also notes that he has been having frequent diarrhea for the last 2 months, and had two episodes of diarrhea yesterday. Medical Office Manager denies that patient has had any bloody bowel movements recently. #Sepsis, possibly sourced from abdomen Patient met 2 out of 4 SIRS criteria - tachypnea and leukocytosis Most likely source of infection abdomen In ED patient was given IVF and Zosyn - Lactic acid normalized - Continue IV ciprofloxacin and Flagyl (Course: 04/29-05/06) - Pending C. diff, blood, urine cultures - Monitor CBC/CMP daily #Small Bowel Obstruction #Abdominal pain Patient presented with chief complaints of abdominal pain, CT abdomen revealed: Area of narrowing in the distal sigmoid colon with dilatation of proximal large bowel loops, neoplastic or inflammatory etiology cannot be excluded. Recommend clinical correlation and followup with sigmoidoscopy. Mild wall thickening of pyloric antrum with mild surrounding fat stranding likely inflammatory. Recommend follow-up. Diffuse gallbladder wall thickening with mild pericholecystic edema and fat stranding, unchanged since the prior examination. - Dr. Hopper consulted, appreciate recommendations - Consulted fire coordinator and started TPN per Dr. Hopper - NG tube in place with intermittent suction - Morphine 2mg IV q4h prn pain - Fecal occult blood test positive - Monitor Hgb daily, transfuse if <7.0 #Pulmonary Embolism Patient was diagnosed with PE not certain when Patient is on Eliquis, however reported dark stool since starting the medication Today CT revealed right lower lobe pulmonary artery lobar and segmental thromboembolism - Ok to restart coagulation prophylaxis once more per Dr. Hopper - Started heparin drip - Monitor aPTT daily with goal 60-80s for optimal anticoagulation #Hypokalemia Initially 3.6 on arrival, decreased to 3.1 on morning of 04/29 - Supplemented 40mEq PO KCl and 20mEq IV KCl - Will recheck in morning and supplement as needed #Rib Fractures Patient stated that he fell about 8 weeks ago from the tree, at that time CT chest revealed multiple rib fracture without flare chest with mild left hemithorax, patient was managed in [facility] - Morphine 2mg q4h prn pain Health maintenance: Disposition: Med surg Diet: TPN GI prophylaxis: Protonix 40mg IV qd DVT prophylaxis: SCDs Code: Full code Case disclosed with Attending Dr. Davis and my senior Dr. Scott and Dr. Levy. Benitez Lyn PGY1 Attending Provider Attestation/Addendum I have examined the patient, reviewed labs and imaging findings, discussed the case with the resident(s), and reviewed entered orders. I agree with the plan of care as outlined in this note, with these additional summaries/recommendations: Patient seen at bedside. No acute overnight events. NG tube placed and will give GoLytely. General surgery following with plans for colonoscopy. We will start TPN. Dr. Davis
--- NOTE | 2024-04-29 15:45 | PC.NURSE ---
Verified with Dr. Davis about ng tube placement, [facility]
--- NOTE | 2024-04-29 16:04 | PC.NURSE ---
per Dr. Ruchi schaffer to use NG tube for golytely, 60cc qh with syringe
--- NOTE | 2024-04-29 16:23 | PC.CC ---
Pt Onel Yoder is a 68 yr old male admitted to hospitalist services for abd pain. CAB STARTER CC met with pt at bedside to complete initial assessment. At time of encounter pt is noted to be alert and oriented to person, place and situation. CAB STARTER CC introduced self and role in pt care. Pt expressed understanding admission order and is in agreement with treatment plan. Pt able to confirm all demographic information. Pt is from home [address], where he lives with his Carlene Yoder [phone]. Pt identifies his as surrogate DM. Pt reports he has been retired for the last 5 yrs. Pt reports using a 2-wheel walker for ambulation. Pt requires assist with his ADLs. Pt utilizes a 3 in 1 commode. Pt does not require supplemental O2 at home. Pt is not diabetic and is not on dialysis. Pt is followed by Dr. Ramon Young for primary care. At time of D/c pt will return home, with his providing transport. Pt has Advance Directive in place.
[2024-04-29] MEDS: POTASSIUM CHLORIDE 20 mEq TABCR 40 MEQ PO (16:29)
[2024-04-29] MEDS: POTASSIUM CHL 10 mEq IVPB 10 MEQ/100 ML BAG 100 MEQ IV ×2 (16:30→17:14)
[2024-04-29] MEDS: POT CHL ADDITIVE IV (17:51)
[2024-04-29] MEDS: [UNRECOGNIZED DRUG - OTHER] IV (17:51)
[2024-04-29] MEDS: MAGNESIUM SULF IV (17:51)
[2024-04-29] MEDS: MULTIVITAMIN IV (17:51)
[2024-04-29] MEDS: METOCLOPRAMIDE INJ 5 MG/ML VIAL 2 ML 10 MG IVP ×2 (17:51→23:31)
[2024-04-29] MEDS: FAT EMUL/OLIVE/SOY/PHOS 20% IV 500 ML 32 ML IV (18:28)
[2024-04-29 22:53] LABS: Partial Thromboplastin Time 42.9 Seconds (22.0-36.0)
[2024-04-29] MEDS: HEPARIN SOD INJ 5000 UNIT/ML VIAL 2850 UNIT IVP (23:28)
[2024-04-30] VITALS (9 sets, daily range): BP systolic 124–144; BP diastolic 79–89; PULSE 78–106; RESP 16–96; TEMP 36.2–36.8; O2SAT 91–93
[2024-04-30] MEDS: SODIUM CHLORIDE 0.9% 1000 ML 1,000 ML 70 ML IV (00:15)
[2024-04-30] MEDS: KETOROLAC INJ 30 MG/ML VIAL 15 MG IVP (01:07)
[2024-04-30] MEDS: METOCLOPRAMIDE INJ 5 MG/ML VIAL 2 ML 10 MG IVP ×4 (05:08→23:30)
[2024-04-30] MEDS: metroNIDAZOLE/NS 500 MG IVPB 500 MG/100 ML BAG 200 MG IV ×3 (05:09→22:52)
[2024-04-30 05:52] LABS: Basophils % (Auto) 0 % (0-2.5); Eosinophils % (Auto) 0 % (0-10); Hematocrit 31.7 % (41.0-53.0); Hemoglobin 9.6 g/dL (13.5-16.0); Immature Granulocytes % (Auto) 1 % (0-0); Immature Granulocytes Auto 0.05 Thou/mm3 (0.00-0.00); Lymphocytes # (Auto) 1.6 Thou/mm3 (1.0-4.8); Lymphocytes % (Auto) 15 % (10-50); Mean Corpuscular HGB Conc 30.3 g/dl (31.0-37.0); Mean Corpuscular Volume 89 fL (80-100); Monocytes # (Auto) 0.8 Thou/mm3 (0.0-0.8); Monocytes % (Auto) 8 % (0-12); Neutrophils # (Auto) 8.2 Thou/mm3 (1.8-7.7); Neutrophils % (Auto) 76 % (37-80); Nucleated Red Blood Cell % 0 /100 WBC (0); Platelet Count 332 Thou/mm3 (140-440); RDW Standard Deviation 66.8 fL (35.1-43.9); Red Blood Count 3.56 Miln/mm3 (4.50-5.90); White Blood Count 10.7 Thou/mm3 (3.8-10.6)
[2024-04-30 06:31] LABS: Partial Thromboplastin Time 133.9 Seconds (22.0-36.0)
[2024-04-30 06:36] LABS: Alanine Aminotransferase < 7 U/L (10-49); Albumin, Serum 2.8 gm/dL (3.4-4.8); Albumin/Globulin Ratio 1.1 (1.2-2.2); Alkaline Phosphatase 58 U/L (46-116); Anion Gap 5 (7-16); Aspartate Amino Transferase 10 U/L (0-34); BUN/Creatinine Ratio 29 Ratio (12-20); Bilirubin,Total 0.4 mg/dL (0.3-1.2); Blood Urea Nitrogen 20 mg/dL (9-23); Calcium 8.1 mg/dL (8.3-10.6); Calcium (Corrected) 9.1 mg/dL (8.5-10.1); Carbon Dioxide 27.6 mMol/L (20.0-31.0); Chloride 108 mMol/L (98-107); Creatinine (Component) 0.7 mg/dL (0.6-1.3); Estimated Creatinine Clearance 91.1 mL/min (>60); Globulin 2.6 gm/dL (2.3-3.5); Glucose 155 mg/dL (74-106); Osmolality,Calculated 286 (275-295); Potassium 4.1 mMol/L (3.4-5.1); Sodium 141 mMol/L (136-145); Total Protein 5.4 gm/dL (5.7-8.2); eGFR > 60 See Note
--- NOTE | 2024-04-30 06:37 | PC.NURSE ---
Dr. Sheridan notified regarding recent PTT of 133.9. He confirmed to follow protocol.
[2024-04-30] MEDS: CIPROFLOXACIN/D5w 400 MG IVPB 400 MG/200 ML BAG 200 MG IV ×2 (08:22→20:51)
[2024-04-30] MEDS: PANTOPRAZOLE INJ 40 MG VIAL IVP (08:22)
[2024-04-30] MEDS: MORPHINE SULF INJ 10 MG/ML VIAL 2 MG IVP ×4 (09:54→22:02)
--- NOTE | 2024-04-30 10:53 | CHAP ---
Patient was visited by a Spiritual Care Volunteer on 04/30/2024 between 1000 and [id number] and received comfort, encouragement and/or prayer.
[2024-04-30] MEDS: NA SU/NAHCO3/KC/PEG (Golytely) 4,000 ML BTL 4000 ML NG (11:19)
[2024-04-30] MEDS: Heparin/D5w 25K 250 ML Ivpb 25,000 UNIT/250 ML BAG 12.106 UNIT IV (11:20)
--- NOTE | 2024-04-30 13:00 | PD.SURPROG ---
Documentation for date of: 04/30/24 Subjective Subjective Narrative: Patient is seen and examined. Currently he is resting comfortably. He had some abdominal pain last night and his NG tube was connected back to suction without any drainage. Exam Vital Signs Temp Pulse Resp BP Pulse Ox O2 Del Method 98.1 F 78 17 140/81 H 92 L Room Air 04/30/24 08:00 04/30/24 12:00 04/30/24 08:00 04/30/24 08:00 04/30/24 08:00 04/30/24 08:00 Constitutional Constitutional: no acute distress Routine Abdominal Exam Comments: Abdomen is soft with hypoactive bowel sounds and distended. 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
--- NOTE | 2024-04-30 14:22 | ESPR_ITS ---
<Statement entered by Anita Levy MD - 05/01/24 05:59> I discussed with and supervised the international marketing intern physician who took care of this patient. I personally saw and examined the patient and discussed the assessment and plan with the entire medicine team, including my attending Dr. Santa, I agree with most of the assessment and plan as documented below Anita Levy M.D. PGY-2 Documentation for date of: 04/30/24 Subjective Subjective Interval history: Mr. Oenl Yoder is a 68-year-old male with past medical history of PE on Eliquis, presented to ED on 04/28/2024 with chief complaints of abdominal pain and distention that progressively was getting worse x1 day. He stated that the pain started last night along with abdominal distension, accompanied by intractable nausea and vomiting with no visible blood. He also notes that he has been having frequent diarrhea for the last 2 months, and had two episodes of diarrhea yesterday. He also states that over the last week, some of his bowel movements have been dark black, and some have been bright red, and that this may be associated with his known chronic hemorrhoids. Approximately 8 weeks ago, patient fell from a tree causing multiple left-sided rib fractures, for which he was treated at [facility] and discharged back to [facility] for rehabilitation. Had a presentation to [facility] on 04/19/2024 for chest pain, found on CT to be pulmonary embolism with flail chest and acute acalculous cholecystitis. He was transferred to [facility] again and had an endoscopy performed but no colonoscopy, as pt was not able to complete bowel prep. Findings from EGD unknown per patient. Patient was placed on Eliquis for his pulmonary embolism at this time. On arrival to ED, patient was tachycardic at 121, WBC 23.6, Hgb 12.9, Hct 41.0, platelets 513, lactic 2.6, glucose 182. CT abdomen demonstrated an area of narrowing in the distal sigmoid colon with dilatation of proximal large bowel loops, neoplastic or inflammatory etiology cannot be excluded. Sigmoidoscopy recommended at that time. CT abdomen also positive for right lower lobe pulmonary artery lobar and segmental thromboembolism, mild wall thickening of pyloric antrum with mild surrounding fat stranding likely inflammatory, and diffuse gallbladder wall thickening with mild pericholecystic edema and fat stranding. In ED patient received morphine 4 mg, Zosyn, 1L of normal saline. Patient was admitted for abdominal pain and distention secondary due to SBO, NG tube was placed, Dr Hopper was contacted in ED and agreed to be consulted. Patient met 2/4 sepsis criteria, and with a possible infectious source in the abdomen, was suspected for sepsis and started on Ciprofloxacin and Flagyl. C. diff, urine, and blood cultures ordered. 04/29: This morning, patient's clinical status remains unchanged. He is still nonverbal and appears visually uncomfortable during palpation of abdomen, but unable to communicate any specific point of tenderness. Dr. Hopper recommends starting patient on TPN as he will not be able to undergo colonoscopy for several days, and will not be able to go to the operating room for several days after that. Appreciate further recommendations. 04/30: No acute overnight events. Clamped NG tube and started GoLytely at a slow rate with plans to perform colonoscopy tomorrow. Patient states that his pain is still present but controlled with Toradol. Started TPN today for nutrition. Exam Vital Signs Temp Pulse Resp BP Pulse Ox O2 Del Method 98.1 F 78 17 140/81 H 92 L Room Air 04/30/24 08:00 04/30/24 12:00 04/30/24 08:00 04/30/24 08:00 04/30/24 08:00 04/30/24 08:00 Narrative Exam Gen: Awake, oriented x3, responsive to questions, in no acute distress HEENT: NCAT, PERRLA, EOMI, MMM, anicteric conjunctivae. CVS: normal S1 and S2. RRR. No M/R/G. Resp: CTA B/L. No rhonchi, rales, crackles or wheezing. Abd: Firm, diffusely tender to palpation, distended. BS+ in all 4 quadrants. MSK: Good ROM in BUE & BLE. No edema or rash. Neuro: Moves all extremities spontaneously Psych: appropriate mood and affect. Objective Labs 05/01/24 12:10 05/01/24 05:07 Labs: Laboratory Results - last 24 hr 04/29/24 04/29/24 04/29/24 13:26 14:34 21:06 WBC RBC Hgb Hct MCV MCH MCHC RDW Std Deviation Plt Count Neut % (Auto) Lymph % (Auto) [place] % (Auto) Eos % (Auto) Baso % (Auto) Neut # (Auto) Lymph # (Auto) [place] # (Auto) Eos # (Auto) Baso # (Auto) Immature Gran # (Auto) Absolute Nucleated RBC Immature Gran % Nucleated RBC % APTT 31.7 42.9 H D Sodium Potassium Chloride Carbon Dioxide Anion Gap BUN Creatinine Estim Creat Clear Calc eGFR BUN/Creatinine Ratio Glucose Calculated Osmolality Calcium Corrected Calcium Total Bilirubin AST ALT Alkaline Phosphatase Total Protein Albumin Globulin Albumin/Globulin Ratio Ur Collection Type Clean Catch Urine Color Yellow Urine Clarity Clear Urine pH 6.0 Ur Specific [place] > 1.030 Urine Protein 1+ A Urine Glucose (UA) Negative Urine Ketones Trace Urine Blood Negative Urine Nitrite Negative Urine Bilirubin Negative Urine Urobilinogen (Auto) Negative Ur Leukocyte Esterase Negative Urine RBC 6 H Urine WBC 3 Ur Squamous Epith Cells < 1 Urine Bacteria None 04/30/24 05:22 WBC 10.7 H RBC 3.56 L Hgb 9.6 L Hct 31.7 L MCV 89 MCH 27.0 MCHC 30.3 L RDW Std Deviation 66.8 H Plt Count 332 Neut % (Auto) 76 Lymph % (Auto) 15 [place] % (Auto) 8 Eos % (Auto) 0 Baso % (Auto) 0 Neut # (Auto) 8.2 H Lymph # (Auto) 1.6 [place] # (Auto) 0.8 Eos # (Auto) 0.0 Baso # (Auto) 0.0 Immature Gran # (Auto) 0.05 H Absolute Nucleated RBC 0.00 Immature Gran % 1 H Nucleated RBC % 0 APTT 133.9 H* D Sodium 141 Potassium 4.1 D Chloride 108 H Carbon Dioxide 27.6 Anion Gap 5 L BUN 20 Creatinine 0.7 Estim Creat Clear Calc 91.1 eGFR > 60 BUN/Creatinine Ratio 29 H Glucose 155 H Calculated Osmolality 286 Calcium 8.1 L Corrected Calcium 9.1 Total Bilirubin 0.4 AST 10 ALT < 7 L Alkaline Phosphatase 58 Total Protein 5.4 L Albumin 2.8 L Globulin 2.6 Albumin/Globulin Ratio 1.1 L Ur Collection Type Urine Color Urine Clarity Urine pH Ur Specific [place] Urine Protein Urine Glucose (UA) Urine Ketones Urine Blood Urine Nitrite Urine Bilirubin Urine Urobilinogen (Auto) Ur Leukocyte Esterase Urine RBC Urine WBC Ur Squamous Epith Cells Urine Bacteria Quality Measures Quality Measures sepsis Current suspected stage: sepsis Possible source: GI tract/intra-abdominal Blood cultures ordered: yes Antibiotic ordered: Yes Advance care planning discussed with:: patient Assessment & Plan Assessment Current Active Medications: Generic Name Dose Route Start Last Admin Trade Name Freq PRN Reason Stop Dose Admin Metronidazole 500 mg in 100 mls @ 200 mls/hr 04/29/24 04:30 04/30/24 14:11 Flagyl 500 Mg Iv IV 05/06/24 04:29 200 mls/hr Q8HR RICKIE Administration Ciprofloxacin/Dextrose 400 mg in 200 mls @ 200 mls/hr 04/29/24 04:30 04/30/24 08:22 Cipro Ivpb IV 05/06/24 04:29 200 mls/hr Q12HR RICKIE Administration Heparin Sodium/Dextrose 25,000 unit in 250 mls @ 12.819 mls/hr 04/29/24 12:00 04/30/24 11:20 Heparin In D5w Ivpb IV 05/13/24 11:59 17 units/kg/hr .[id number] RICKIE 12.106 mls/hr Administration Protocol 18 UNITS/KG/HR Multivitamins/Minerals 10 ml/ 2,034 mls @ 50 mls/hr 04/29/24 18:00 04/29/24 17:51 Potassium Chloride 40 meq/ IV 04/30/24 17:59 50 mls/hr Magnesium Sulfate 2 gm/ Amino .Q24H RICKIE Administration Acids/Electrolytes/Dextrose Multivitamins/Minerals 10 ml/ 2,014 mls @ 100 mls/hr 04/30/24 18:00 Magnesium Sulfate 2 gm/ Amino IV 05/01/24 14:08 Acids/Electrolytes/Dextrose .[id number] [facility] Fat Emulsion-[place] Oil/Soybean Oil 500 mls @ 32 mls/hr 05/01/24 18:00 Clinopid 20% Iv IV 05/29/24 17:59 [email or web address] [facility] Metoclopramide HCl 10 mg 04/29/24 18:00 04/30/24 11:19 Metoclopramide Inj 5 Mg/Ml Vial 2 Ml IVP 05/29/24 17:59 10 mg Q6HR RICKIE Administration Protocol Morphine Sulfate 2 mg 04/29/24 04:25 04/30/24 14:11 Morphine Sulf Inj 10 Mg/Ml Vial IVP 05/04/24 04:24 2 mg Q4H PRN Administration PAIN SCALE 7-10 (Severe Ondansetron HCl 4 mg 04/29/24 04:25 04/29/24 06:11 Ondansetron Inj 2 Mg/Ml Inj 2 Ml IV 05/29/24 04:24 4 mg Q6H PRN Administration NAUSEA OR VOMITING Protocol Pantoprazole Sodium 40 mg 04/29/24 09:00 04/30/24 08:22 Pantoprazole Inj 40 Mg Vial IVP 05/29/24 08:59 40 mg QDAY RICKIE Administration Plan Mr. Onel Yoder is a 68-year-old male with past medical history of PE on Eliquis, presented to ED on 04/28/2024 with chief complaints of abdominal pain and distention that progressively was getting worse x1 day. Patient himself is nonverbal at baseline and unable to communicate, but his fur finisher seamstress at bedside was able to provide a history. Office Machinery Or Equipment Installer stated that the pain started last night along with abdominal distension, accompanied by intractable nausea and vomiting with no visible blood. She also notes that he has been having frequent diarrhea for the last 2 months, and had two episodes of diarrhea yesterday. Office Machinery Or Equipment Installer denies that patient has had any bloody bowel movements recently. #Sepsis, possibly sourced from abdomen Patient met 2 out of 4 SIRS criteria - tachypnea and leukocytosis Most likely source of infection abdomen In ED patient was given IVF and Zosyn - Lactic acid normalized - Continue IV ciprofloxacin and Flagyl (Course: 04/29-05/06) - Pending C. diff, blood, urine cultures - Monitor CBC/CMP daily #Small Bowel Obstruction #Abdominal pain Patient presented with chief complaints of abdominal pain, CT abdomen revealed: Area of narrowing in the distal sigmoid colon with dilatation of proximal large bowel loops, neoplastic or inflammatory etiology cannot be excluded. Recommend clinical correlation and followup with sigmoidoscopy. Mild wall thickening of pyloric antrum with mild surrounding fat stranding likely inflammatory. Recommend follow-up. Diffuse gallbladder wall thickening with mild pericholecystic edema and fat stranding, unchanged since the prior examination. - Dr. Hopper consulted, appreciate recommendations - Consulted agronomy instructor and started TPN per Dr. Hopper - NG tube in place but clamped today - GoLytely today in preparation for colonoscopy tomorrow - Morphine 2mg IV q4h prn pain - Fecal occult blood test positive - Monitor Hgb daily, transfuse if <7.0 #Pulmonary Embolism Patient was diagnosed with PE not certain when Patient is on Eliquis, however reported dark stool since starting the medication Today CT revealed right lower lobe pulmonary artery lobar and segmental thromboembolism - Continue heparin drip - Monitor aPTT daily with goal 60-80s for optimal anticoagulation #Hypokalemia Initially 3.6 on arrival, decreased to 3.1 on morning of 04/29 - 3.1 yesterday, 4.1 this morning - Will recheck in morning and supplement as needed #Rib Fractures Patient stated that he fell about 8 weeks ago from the tree, at that time CT chest revealed multiple rib fracture without flare chest with mild left hemithorax, patient was managed in [facility] - Morphine 2mg q4h prn pain Health maintenance: Disposition: Med surg Diet: TPN GI prophylaxis: Protonix 40mg IV qd DVT prophylaxis: SCDs and heparin drip Code: Full code Case disclosed with Attending Dr. Santa and my senior Dr. Scott and Dr. Levy. Benitez Lyn PGY1 LI discussed with and supervised the international marketing intern physician who took care of this patient. I personally saw and examined the patient and discussed the assessment and plan with the entire medicine team, including my attending Dr. Narinder Santa MD. I agree with the assessment and plan as documented above. Azael Scott M.D. Internal Medicine PGY-3 Attending Provider Attestation/Addendum I have examined the patient, reviewed labs and imaging findings, discussed the case with the resident(s), and reviewed entered orders. I agree with the plan of care as outlined in this note. Dr. Santa
[2024-04-30 14:43] LABS: Partial Thromboplastin Time 70.3 Seconds (22.0-36.0)
[2024-04-30] MEDS: MAGNESIUM SULF IV (17:54)
[2024-04-30] MEDS: MULTIVITAMIN IV (17:54)
[2024-04-30] MEDS: [UNRECOGNIZED DRUG - OTHER] IV (17:54)
[2024-05-01] VITALS: BP 127/80; PULSE 105; RESP 25; TEMP 36.4; O2SAT 93
[2024-05-01 01:03] LABS: Partial Thromboplastin Time 70.9 Seconds (22.0-36.0)
[2024-05-01] MEDS: MORPHINE SULF INJ 10 MG/ML VIAL 2 MG IVP ×5 (02:00→19:44)
[2024-05-01 04:00] VITALS: BP 129/84; PULSE 112; RESP 20; TEMP 36.5; O2SAT 92
[2024-05-01] MEDS: METOCLOPRAMIDE INJ 5 MG/ML VIAL 2 ML 10 MG IVP ×4 (05:07→23:42)
[2024-05-01] MEDS: metroNIDAZOLE/NS 500 MG IVPB 500 MG/100 ML BAG 200 MG IV ×3 (05:14→21:59)
[2024-05-01 06:09] LABS: Basophils % (Auto) 0 % (0-2.5); Eosinophils # (Auto) 0.1 Thou/mm3 (0.0-0.5); Eosinophils % (Auto) 1 % (0-10); Hematocrit 28.3 % (41.0-53.0); Immature Granulocytes % (Auto) 1 % (0-0); Immature Granulocytes Auto 0.05 Thou/mm3 (0.00-0.00); Lymphocytes # (Auto) 2.1 Thou/mm3 (1.0-4.8); Lymphocytes % (Auto) 21 % (10-50); Mean Corpuscular HGB Conc 30.4 g/dl (31.0-37.0); Mean Corpuscular Hemoglobin 26.5 pg (25.0-35.0); Mean Corpuscular Volume 87 fL (80-100); Monocytes # (Auto) 1.3 Thou/mm3 (0.0-0.8); Monocytes % (Auto) 14 % (0-12); Neutrophils % (Auto) 63 % (37-80); Nucleated Red Blood Cell # 0.03 Thou/mm3 (0.00-0.00); Nucleated Red Blood Cell % 0 /100 WBC (0); Platelet Count 319 Thou/mm3 (140-440); RDW Standard Deviation 64.6 fL (35.1-43.9); Red Blood Count 3.25 Miln/mm3 (4.50-5.90); White Blood Count 9.6 Thou/mm3 (3.8-10.6)
[2024-05-01] MEDS: ONDANSETRON INJ 2 MG/ML INJ 2 ML 4 MG IV (06:10)
[2024-05-01 06:18] LABS: Hemoglobin 8.6 g/dL (13.5-16.0)
[2024-05-01 06:39] LABS: INR 1.2 (0.9-1.3); Partial Thromboplastin Time 72.3 Seconds (22.0-36.0); Prothrombin Time 12.8 Seconds (9.0-12.2)
[2024-05-01 07:14] LABS: Alanine Aminotransferase < 7 U/L (10-49); Albumin, Serum 2.8 gm/dL (3.4-4.8); Albumin/Globulin Ratio 1.1 (1.2-2.2); Alkaline Phosphatase 53 U/L (46-116); Anion Gap 5 (7-16); Aspartate Amino Transferase < 8 U/L (0-34); BUN/Creatinine Ratio 53 Ratio (12-20); Bilirubin,Total 0.5 mg/dL (0.3-1.2); Blood Urea Nitrogen 21 mg/dL (9-23); Calcium 8.2 mg/dL (8.3-10.6); Calcium (Corrected) 9.2 mg/dL (8.5-10.1); Carbon Dioxide 26.7 mMol/L (20.0-31.0); Chloride 105 mMol/L (98-107); Creatinine (Component) 0.4 mg/dL (0.6-1.3); Estimated Creatinine Clearance 159.5 mL/min (>60); Globulin 2.5 gm/dL (2.3-3.5); Glucose 141 mg/dL (74-106); Magnesium 2.1 mg/dL (1.6-2.6); Osmolality,Calculated 278 (275-295); Phosphorous 1.8 mg/dL (2.4-5.1); Potassium 3.5 mMol/L (3.4-5.1); Sodium 137 mMol/L (136-145); Total Protein 5.3 gm/dL (5.7-8.2); eGFR > 60 See Note
[2024-05-01 08:00] VITALS: BP 137/92; PULSE 100; RESP 19; TEMP 36.3; O2SAT 92
[2024-05-01] MEDS: Heparin/D5w 25K 250 ML Ivpb 25,000 UNIT/250 ML BAG 12.106 UNIT IV (08:24)
[2024-05-01] MEDS: CIPROFLOXACIN/D5w 400 MG IVPB 400 MG/200 ML BAG 200 MG IV ×2 (08:27→20:33)
[2024-05-01] MEDS: PANTOPRAZOLE INJ 40 MG VIAL IVP (08:28)
--- NOTE | 2024-05-01 11:53 | PC.NURSE ---
Patient had a bowel movement
[2024-05-01 12:00] VITALS: BP 144/93; PULSE 100; RESP 20; TEMP 36.5; O2SAT 92
--- NOTE | 2024-05-01 12:24 | PC.SS ---
Follow up note: Patient is to have a colonoscopy today. SS also received a call from [facility] indicating that they were already open to patient for PT /Nursing care.
[2024-05-01 12:36] LABS: Hemoglobin 8.4 g/dL (13.5-16.0)
--- NOTE | 2024-05-01 14:13 | PD.SURPROG ---
Documentation for date of: 05/01/24 Subjective Subjective Narrative: Patient is seen and examined. He is resting comfortably. He was receiving intermittent doses of GoLytely. He has had a bowel movement earlier today Exam Vital Signs Temp Pulse Resp BP Pulse Ox O2 Del Method 97.7 F 100 20 144/93 H 92 L Room Air 05/01/24 12:00 05/01/24 12:00 05/01/24 12:00 05/01/24 12:00 05/01/24 12:00 05/01/24 12:00 Constitutional Constitutional: no acute distress Routine Abdominal Exam Abdominal: Present soft Comments: Hypoactive bowel sounds. His abdomen is distended with minimal tenderness throughout the abdomen, no rebound tenderness. He has reducible umbilical hernia Assessment & Plan Plan Will continue slow administration of GoLytely. Patient will be evaluated by Dr. Lopez later today
[2024-05-01] MEDS: [UNRECOGNIZED DRUG - OTHER] IV (15:49)
[2024-05-01] MEDS: POTASSIUM PHOS IV (15:49)
[2024-05-01] MEDS: AMINO ACID IV (15:49)
[2024-05-01] MEDS: MULTIVITAMIN IV (15:49)
--- NOTE | 2024-05-01 15:49 | ESPR_ITS ---
<Statement entered by Anita Levy MD - 05/02/24 19:13> I discussed with and supervised the planning intern physician who took care of this patient. I personally saw and examined the patient and discussed the assessment and plan with the entire medicine team, including my attending , I agree with most of the assessment and plan as documented below Anita Levy M.D. PGY-2 Documentation for date of: 05/01/24 Subjective Subjective Interval history: Mr. Onel Yoder is a 68-year-old male with past medical history of PE on Eliquis, presented to ED on 04/28/2024 with chief complaints of abdominal pain and distention that progressively was getting worse x1 day. He stated that the pain started last night along with abdominal distension, accompanied by intractable nausea and vomiting with no visible blood. He also notes that he has been having frequent diarrhea for the last 2 months, and had two episodes of diarrhea yesterday. He also states that over the last week, some of his bowel movements have been dark black, and some have been bright red, and that this may be associated with his known chronic hemorrhoids. Approximately 8 weeks ago, patient fell from a tree causing multiple left-sided rib fractures, for which he was treated at [facility] and discharged back to [facility] for rehabilitation. Had a presentation to [facility] on 04/19/2024 for chest pain, found on CT to be pulmonary embolism with flail chest and acute acalculous cholecystitis. He was transferred to [facility] again and had an endoscopy performed but no colonoscopy, as pt was not able to complete bowel prep. Findings from EGD unknown per patient. Patient was placed on Eliquis for his pulmonary embolism at this time. On arrival to ED, patient was tachycardic at 121, WBC 23.6, Hgb 12.9, Hct 41.0, platelets 513, lactic 2.6, glucose 182. CT abdomen demonstrated an area of narrowing in the distal sigmoid colon with dilatation of proximal large bowel loops, neoplastic or inflammatory etiology cannot be excluded. Sigmoidoscopy recommended at that time. CT abdomen also positive for right lower lobe pulmonary artery lobar and segmental thromboembolism, mild wall thickening of pyloric antrum with mild surrounding fat stranding likely inflammatory, and diffuse gallbladder wall thickening with mild pericholecystic edema and fat stranding. In ED patient received morphine 4 mg, Zosyn, 1L of normal saline. Patient was admitted for abdominal pain and distention secondary due to SBO, NG tube was placed, Dr Hopper was contacted in ED and agreed to be consulted. Patient met 2/4 sepsis criteria, and with a possible infectious source in the abdomen, was suspected for sepsis and started on Ciprofloxacin and Flagyl. C. diff, urine, and blood cultures ordered. 04/29: This morning, patient's clinical status remains unchanged. He is still nonverbal and appears visually uncomfortable during palpation of abdomen, but unable to communicate any specific point of tenderness. Dr. Hopper recommends starting patient on TPN as he will not be able to undergo colonoscopy for several days, and will not be able to go to the operating room for several days after that. Appreciate further recommendations. 04/30: No acute overnight events. Clamped NG tube and started GoLytely at a slow rate with plans to perform colonoscopy tomorrow. Patient states that his pain is still present but controlled with Toradol. Started TPN today for nutrition. 05/01: No acute overnight events. Patient drank approximately half of his GoLytely, will continue slow administration. Dr. Lopez to evaluate later this afternoon. Patient feels unchanged since yesterday, still feeling his abdominal distension and diffuse abdominal pain controlled with morphine 2mg q4h prn. Tachycardia improved today, Hgb dropped over last 24h from 9.6 -> 8.6. Will monitor in AM and consider transfusing if patient below 8.0. Urine and blood cultures negative. Exam Vital Signs Temp Pulse Resp BP Pulse Ox O2 Del Method 97.7 F 100 20 144/93 H 92 L Room Air 05/01/24 12:00 05/01/24 12:00 05/01/24 12:00 05/01/24 12:05/01/24 12:00 05/01/24 12:00 Narrative Exam Gen: Awake, oriented x3, responsive to questions, in no acute distress HEENT: NCAT, PERRLA, EOMI, MMM, anicteric conjunctivae. CVS: normal S1 and S2. RRR. No M/R/G. Resp: CTA B/L. No rhonchi, rales, crackles or wheezing. Abd: Firm, diffusely tender to palpation, distended. BS+ in all 4 quadrants. MSK: Good ROM in BUE & BLE. No edema or rash. Neuro: Moves all extremities spontaneously Psych: appropriate mood and affect. Objective Labs 05/02/24 05:16 05/02/24 05:16 Labs: Laboratory Results - last 24 hr 04/30/24 04/30/24 05/01/24 14:00 23:48 05:07 WBC 9.6 RBC 3.25 L Hgb 8.6 L Hct 28.3 L MCV 87 MCH 26.5 MCHC 30.4 L RDW Std Deviation 64.6 H Plt Count 319 Neut % (Auto) 63 Lymph % (Auto) 21 Lake % (Auto) 14 H Eos % (Auto) 1 Baso % (Auto) 0 Neut # (Auto) 6.0 Lymph # (Auto) 2.1 Lake # (Auto) 1.3 H Eos # (Auto) 0.1 Baso # (Auto) 0.0 Immature Gran # (Auto) 0.05 H Absolute Nucleated RBC 0.03 H Immature Gran % 1 H Nucleated RBC % 0 PT 12.8 H INR 1.2 APTT 70.3 H D 70.9 H 72.3 H Sodium 137 Potassium 3.5 D Chloride 105 Carbon Dioxide 26.7 Anion Gap 5 L BUN 21 Creatinine 0.4 L Estim Creat Clear Calc 159.5 eGFR > 60 BUN/Creatinine Ratio 53 H Glucose 141 H Calculated Osmolality 278 Calcium 8.2 L Corrected Calcium 9.2 Phosphorus 1.8 L Magnesium 2.1 Total Bilirubin 0.5 AST < 8 ALT < 7 L Alkaline Phosphatase 53 Total Protein 5.3 L Albumin 2.8 L Globulin 2.5 Albumin/Globulin Ratio 1.1 L Blood Type Antibody Screen Blood Bank Wristband ID 05/01/24 12:10 WBC RBC Hgb 8.4 L Hct 27.0 L MCV MCH MCHC RDW Std Deviation Plt Count Neut % (Auto) Lymph % (Auto) Lake % (Auto) Eos % (Auto) Baso % (Auto) Neut # (Auto) Lymph # (Auto) Lake # (Auto) Eos # (Auto) Baso # (Auto) Immature Gran # (Auto) Absolute Nucleated RBC Immature Gran % Nucleated RBC % PT INR APTT Sodium Potassium Chloride Carbon Dioxide Anion Gap BUN Creatinine Estim Creat Clear Calc eGFR BUN/Creatinine Ratio Glucose Calculated Osmolality Calcium Corrected Calcium Phosphorus Magnesium Total Bilirubin AST ALT Alkaline Phosphatase Total Protein Albumin Globulin Albumin/Globulin Ratio Blood Type A Negative Antibody Screen NEGATIVE Blood Bank Wristband ID Yes Quality Measures Quality Measures sepsis Current suspected stage: sepsis Possible source: GI tract/intra-abdominal Blood cultures ordered: yes Antibiotic ordered: Yes Advance care planning discussed with:: patient Assessment & Plan Assessment Current Active Medications: Generic Name Dose Route Start Last Admin Trade Name Freq PRN Reason Stop Dose Admin Metronidazole 500 mg in 100 mls @ 200 mls/hr 04/29/24 04:30 05/01/24 14:56 Flagyl 500 Mg Iv IV 05/06/24 04:29 200 mls/hr Q8HR RICKIE Administration Ciprofloxacin/Dextrose 400 mg in 200 mls @ 200 mls/hr 04/29/24 04:30 05/01/24 08:27 Cipro Ivpb IV 05/06/24 04:29 200 mls/hr Q12HR RICKIE Administration Heparin Sodium/Dextrose 25,000 unit in 250 mls @ 12.819 mls/hr 04/29/24 12:00 05/01/24 08:24 Heparin In D5w Ivpb IV 05/13/24 11:59 17 units/kg/hr .[id number] RICKIE 12.106 mls/hr Administration Protocol 18 UNITS/KG/HR Fat Emulsion-[place] Oil/Soybean Oil 500 mls @ 32 mls/hr 05/01/24 18:00 Clinopid 20% Iv IV 05/29/24 17:59 [id number] RICKIE Multivitamins/Minerals 10 ml/ 2,020 mls @ 100 mls/hr 05/01/24 14:09 Potassium Phosphate 30 mmol/ IV 05/02/24 10:20 Amino Acids/Electrolytes/ .[id number] [facility] Dextrose Amino Acids 1,000 mls @ 100 mls/hr 05/02/24 10:21 Clinimix 4.25/5 IV 06/01/24 10:20 .Q10H RICKIE Metoclopramide HCl 10 mg 04/29/24 18:00 05/01/24 11:30 Metoclopramide Inj 5 Mg/Ml Vial 2 Ml IVP 05/29/24 17:59 10 mg Q6HR RICKIE Administration Protocol Morphine Sulfate 2 mg 04/29/24 04:25 05/01/24 14:55 Morphine Sulf Inj 10 Mg/Ml Vial IVP 05/04/24 04:24 2 mg Q4H PRN Administration PAIN SCALE 7-10 (Severe Ondansetron HCl 4 mg 04/29/24 04:25 05/01/24 06:10 Ondansetron Inj 2 Mg/Ml Inj 2 Ml IV 05/29/24 04:24 4 mg Q6H PRN Administration NAUSEA OR VOMITING Protocol Pantoprazole Sodium 40 mg 04/29/24 09:00 05/01/24 08:28 Pantoprazole Inj 40 Mg Vial IVP 05/29/24 08:59 40 mg QDAY RICKIE Administration Plan Mr. Onel Yoder is a 68-year-old male with past medical history of PE on Eliquis, presented to ED on 04/28/2024 with chief complaints of abdominal pain and distention that progressively was getting worse x1 day. Patient himself is nonverbal at baseline and unable to communicate, but his women's activities adviser at bedside was able to provide a history. Paving Stone Installer stated that the pain started last night along with abdominal distension, accompanied by intractable nausea and vomiting with no visible blood. She also notes that he has been having frequent diarrhea for the last 2 months, and had two episodes of diarrhea yesterday. Paving Stone Installer denies that patient has had any bloody bowel movements recently. #Sepsis, possibly sourced from abdomen Patient met 2 out of 4 SIRS criteria - tachypnea and leukocytosis Most likely source of infection abdomen In ED patient was given IVF and Zosyn - Lactic acid normalized - Continue IV ciprofloxacin and Flagyl (Course: 04/29-05/06) - Pending C. diff cultures - Urine and blood cultures negative - Monitor CBC/CMP daily #GI Bleed #Abdominal pain Patient presented with chief complaints of abdominal pain, CT abdomen revealed: Area of narrowing in the distal sigmoid colon with dilatation of proximal large bowel loops, neoplastic or inflammatory etiology cannot be excluded. Recommend clinical correlation and followup with sigmoidoscopy. Mild wall thickening of pyloric antrum with mild surrounding fat stranding likely inflammatory. Recommend follow-up. Diffuse gallbladder wall thickening with mild pericholecystic edema and fat stranding, unchanged since the prior examination. - Dr. Hopper consulted, appreciate recommendations - Consulted senior sous chef and started TPN per Dr. Hopper - NG tube in place but clamped today - GoLytely today in preparation for colonoscopy tomorrow - Morphine 2mg IV q4h prn pain - Fecal occult blood test positive #Normocytic Anemia With MCV in 80s, likely etiology being acute blood loss anemia secondary to patient's GI bleed. Will perform colonoscopy to find source of bleed - If Hgb <8.0, consider transfusing - Will continue to monitor Hgb daily #Pulmonary Embolism Patient was diagnosed with PE not certain when Patient is on Eliquis, however reported dark stool since starting the medication Today CT revealed right lower lobe pulmonary artery lobar and segmental thromboembolism - Continue heparin drip - Monitor aPTT daily with goal 60-80s for optimal anticoagulation - Currently in therapeutic aPTT range #Hypokalemia Initially 3.6 on arrival, decreased to 3.1 on morning of 04/29 - 3.5 today, no need for supplementation at this time - Will recheck in morning and supplement as needed #Rib Fractures Patient stated that he fell about 8 weeks ago from the tree, at that time CT chest revealed multiple rib fracture without flare chest with mild left hemithorax, patient was managed in [facility] - Morphine 2mg q4h prn pain Health maintenance: Disposition: Med surg Diet: TPN GI prophylaxis: Protonix 40mg IV qd DVT prophylaxis: SCDs and heparin drip Code: Full code Case disclosed with Attending Dr. Davis and my seniors Dr. Magaña and Dr. Levy. Benitez Lyn PGY1 Attending Provider Attestation/Addendum I have examined the patient, reviewed labs and imaging findings, discussed the case with the resident(s), and reviewed entered orders. I agree with the plan of care as outlined in this note, with these additional summaries/recommendations: Patient seen at bedside. No acute overnight events. NG tube in place and receiving GoLytely in anticipation of colonoscopy. FOBT positive. Status post EGD at [facility] without source of bleeding identified. Patient also on heparin gtt. for significant pulmonary embolism. We recognize risk involved with giving heparin gtt. in the setting of GI bleed although given the size of pulmonary embolism benefits outweigh the risks. If hemoglobin continues to drop we will consider stopping heparin gtt. Patient updated on the plan and in agreement. Monitor H&H. Continue to replace potassium as needed. Dr. Davis
[2024-05-01 16:00] VITALS: BP 114/76; PULSE 100; RESP 19; TEMP 36.6; O2SAT 93
[2024-05-01] MEDS: FAT EMUL/OLIVE/SOY/PHOS 20% IV 500 ML 32 ML IV (17:14)
[2024-05-01 20:00] VITALS: BP 116/79; PULSE 99; RESP 18; TEMP 36.1; O2SAT 92
--- NOTE | 2024-05-01 23:00 | PD.IMCONS ---
HPI Data of Consult Requesting Physician: Narinder Davis MD Primary Care Provider: Ramon Young MD Consult Narrative Reason for consult: Abnormal CT scan of the abdomen and pelvis History of present illness: 68 years old male who presented to the hospital with abdominal pain and distention on 04/28/2024 CT scan of the abdomen pelvis done with contrast showed right lower lobe PE antral gastritis distended colon and focal narrowing of the sigmoid colon I have been consulted Patient did have a bowel movement after some of the GoLytely was given And at the moment the NG tube is clamped cc:: cc: Narinder Davis MD Review of Systems Review of Systems Systems Reviewed: All systems reviewed, normal except as documented Past Medical History Surgical History OTHER SURGICAL HX: As in the history of present illness Meds Home Medications and Allergies Allergies Allergy/AdvReac Type Severity Reaction Status Date / Time No Known Allergies Allergy Verified 04/18/24 18:29 Exam Vital Signs Temp Pulse Resp BP Pulse Ox O2 Del Method 96.9 F 99 18 116/79 92 L Room Air 05/01/24 20:00 05/01/24 20:00 05/01/24 20:00 05/01/24 20:00 05/01/24 20:00 05/01/24 20:00 Constitutional Comments: Chronically ill-appearing Routine Respiratory Exam Comments: Basal Rales Routine Abdominal Exam Comments: Somewhat distended hypoactive bowel sounds Results Labs 05/01/24 12:10 05/01/24 05:07 Labs: Short CBC 05/01/24 05/01/24 Range/Units 05:07 12:10 WBC 9.6 (3.8-10.6) Thou/mm3 Hgb 8.6 L 8.4 L (13.5-16.0) g/dL Hct 28.3 L 27.0 L (41.0-53.0) % Plt Count 319 (140-440) Thou/mm3 BMP 05/01/24 05:07 Sodium 137 Potassium 3.5 D Chloride 105 Carbon Dioxide 26.7 BUN 21 Creatinine 0.4 L Glucose 141 H Calcium 8.2 L Liver Function 05/01/24 Range/Units 05:07 Total Bilirubin 0.5 (0.3-1.2) mg/dL AST < 8 (0-34) U/L ALT < 7 L (10-49) U/L Alkaline Phosphatase 53 (46-116) U/L Albumin 2.8 L (3.4-4.8) gm/dL Assessment and Plan Additional Assessment & Plan Additional Plan: # Abnormal CT scan of the abdomen and pelvis showing focal narrowing of the colon in the region of sigmoid colon Since patient had a bowel movement Hopefully the patient in due course of time can take the GoLytely or it can be given through the NGT Although patient has not been able to tolerate either I will discuss the case with Dr. Hopper tomorrow morning Since the patient currently fully prepped with GoLytely He may need a diverting colostomy Thank you very much for the opportunity to participate in the care of this patient
--- NOTE | 2024-05-01 23:50 | XR_ITS ---
Examination: Abdomen AP single view Technique: AP portable supine abdomen, single view Exam date and time: May 02, 2024 0515 hours Comparison April 29, 2024 INDICATIONS: Abdominal distention today. FINDINGS: Air distended right colon A few loops of air distended small bowel in the upper left abdomen No free air IMPRESSION: Colonic and small bowel ileus
[2024-05-02] VITALS (12 sets, daily range): BP systolic 120–132; BP diastolic 69–83; PULSE 85–101; RESP 12–20; TEMP 36.2–36.9; O2SAT 92–97; BMI 25.2
--- NOTE | 2024-05-02 | XR_ITS ---
Examination: Ultrasound-guided needle placement right basilic vein. Dual-lumen central line placement (PICC line). Fluoroscopy AP chest, portable, single view Exam date and time:May 02, 2024 1347 hours INDICATIONS: Need for long-term intravenous medication A timeout was completed verifying correct patient, procedure, site, positioning Informed consent provided Technique: The patient's site was prepped and draped in sterile fashion. Maximum Sterile Barrier Technique used including cap, mask, sterile gown, sterile gloves, and sterile full body drape. If ultrasound technique used: sterile gel and sterile probe covers. Hand Hygiene performed using proper scrub, soap and water, or alcohol-based hand rub. Site right portable apparatus utilized to confirm patency of the right basilic vein Utilizing ultrasonographic guidance successful 21-gauge needle puncture into the right basilic vein. Ultrasound images recorded and stored. 5 cc 1% lidocaine administered for local anesthetic. Successful micropuncture with a 21-gauge needle is performed. 0.18 wire guide is then introduced into the SVC under fluoroscopic guidance. Dual-lumen catheter dilator is then introduced, followed by the catheter in the SVC and proper position under fluoroscopic guidance. Successful aspiration of blood and flushing with heparinized saline is then performed in the 2 venous limbs. The catheter sutured in place. Findings: Under fluoroscopy, the tip of the catheter is in good position in the vena cava. Portable chest x-ray, post line placement is ordered. Estimated blood loss 3 cc The patient tolerated the procedure well and was in stable and satisfactory condition at completion of the procedure Impression: Successful ultrasound-guided needle placement right basilic vein Successful placement of dual lumen central line, percutaneous Fluoroscopy 0.3 minute radiation dose 2.25 milligray 1 spot fluoroscopic chest film. AP chest completion procedure demonstrates satisfactory position central line. May use central line.
[2024-05-02] MEDS: MORPHINE SULF INJ 10 MG/ML VIAL 2 MG IVP ×6 (00:09→21:58)
--- NOTE | 2024-05-02 01:15 | PC.NURSE ---
IV lipids infusion leaking tubing noted inside IV chamber. Stopped infusion. Attempted to find new tubing with micron filter built in but none is stocked on med/surg floor. Called brew house supervisor Lisbeth to look in other departments but none were stocked. Will follow up with AM shift.
[2024-05-02] MEDS: METOCLOPRAMIDE INJ 5 MG/ML VIAL 2 ML 10 MG IVP ×3 (05:09→17:48)
[2024-05-02] MEDS: metroNIDAZOLE/NS 500 MG IVPB 500 MG/100 ML BAG 200 MG IV ×3 (05:09→22:02)
[2024-05-02] MEDS: Heparin/D5w 25K 250 ML Ivpb 25,000 UNIT/250 ML BAG 12.106 UNIT IV (05:25)
[2024-05-02 06:07] LABS: Basophils # (Auto) 0.1 Thou/mm3 (0.0-0.2); Basophils % (Auto) 1 % (0-2.5); Eosinophils # (Auto) 0.3 Thou/mm3 (0.0-0.5); Eosinophils % (Auto) 3 % (0-10); Hematocrit 25.3 % (41.0-53.0); Immature Granulocytes % (Auto) 1 % (0-0); Immature Granulocytes Auto 0.06 Thou/mm3 (0.00-0.00); Lymphocytes # (Auto) 1.8 Thou/mm3 (1.0-4.8); Lymphocytes % (Auto) 23 % (10-50); Mean Corpuscular HGB Conc 30.8 g/dl (31.0-37.0); Mean Corpuscular Hemoglobin 26.5 pg (25.0-35.0); Mean Corpuscular Volume 86 fL (80-100); Monocytes # (Auto) 1.1 Thou/mm3 (0.0-0.8); Monocytes % (Auto) 14 % (0-12); Neutrophils # (Auto) 4.5 Thou/mm3 (1.8-7.7); Neutrophils % (Auto) 58 % (37-80); Nucleated Red Blood Cell # 0.05 Thou/mm3 (0.00-0.00); Nucleated Red Blood Cell % 1 /100 WBC (0); Platelet Count 286 Thou/mm3 (140-440); RDW Standard Deviation 62.8 fL (35.1-43.9); Red Blood Count 2.94 Miln/mm3 (4.50-5.90); White Blood Count 7.8 Thou/mm3 (3.8-10.6)
[2024-05-02 06:09] LABS: Hemoglobin 7.8 g/dL (13.5-16.0)
[2024-05-02 06:35] LABS: Alanine Aminotransferase < 7 U/L (10-49); Albumin, Serum 2.7 gm/dL (3.4-4.8); Albumin/Globulin Ratio 1.1 (1.2-2.2); Alkaline Phosphatase 46 U/L (46-116); Anion Gap 4 (7-16); Aspartate Amino Transferase 13 U/L (0-34); BUN/Creatinine Ratio 40 Ratio (12-20); Bilirubin,Total 0.4 mg/dL (0.3-1.2); Blood Urea Nitrogen 16 mg/dL (9-23); Calcium 8.4 mg/dL (8.3-10.6); Calcium (Corrected) 9.4 mg/dL (8.5-10.1); Carbon Dioxide 28.3 mMol/L (20.0-31.0); Chloride 102 mMol/L (98-107); Creatinine (Component) 0.4 mg/dL (0.6-1.3); Estimated Creatinine Clearance 159.5 mL/min (>60); Globulin 2.4 gm/dL (2.3-3.5); Glucose 109 mg/dL (74-106); Magnesium 1.9 mg/dL (1.6-2.6); Osmolality,Calculated 270 (275-295); Phosphorous 2.8 mg/dL (2.4-5.1); Potassium 3.9 mMol/L (3.4-5.1); Sodium 134 mMol/L (136-145); Total Protein 5.1 gm/dL (5.7-8.2); eGFR > 60 See Note
--- NOTE | 2024-05-02 08:05 | PC.NURSE ---
Pt IV replaced last noc. Night nurse reported patient is a difficult stick. Pt endorsed he is tired of multiple IV insertions. Pt on PPN, heparin drip, and IV antibiotics. Called Dr. Lora about possible Picc line insertion. Received a call back from Dr. De Jesus. Will consider.
--- NOTE | 2024-05-02 08:49 | CHAP ---
Patient expressed gratitude for visit and prayer.
[2024-05-02] MEDS: CIPROFLOXACIN/D5w 400 MG IVPB 400 MG/200 ML BAG 200 MG IV ×2 (08:57→22:02)
[2024-05-02] MEDS: PANTOPRAZOLE INJ 40 MG VIAL IVP (09:01)
[2024-05-02] MEDS: AMINO ACIDS 4.25 %/D5W 1,000 ML 100 ML IV (10:11)
[2024-05-02] MEDS: MAGNESIUM SULFATE 1 GM IV (12:19)
[2024-05-02] MEDS: HEPARIN SOD LOCK SYR 100 UNIT/ML 500 UNIT IV (14:15)
--- NOTE | 2024-05-02 14:35 | PC.NURSE ---
report received from Fannie JEFFERSON from IR for pt PICC line insertion to right UE
--- NOTE | 2024-05-02 14:56 | ESPR_ITS ---
<Statement entered by Sylvia Magaña MD - 05/02/24 15:23> Senior Resident Attestation: I supervised/discussed management plan with resident physician Dr. Tracey Fuller, and was involved in the care of this patient. I personally saw and examined the patient and discussed the assessment and plan with the entire medicine team, including my attending. I agree with the assessment and plan as documented. Patient's care was discussed with attending physician, Dr. Susan Magaña MD PGY-3 Documentation for date of: 05/02/24 Subjective Subjective Interval history: Mr. Onel Yoder is a 68-year-old male with past medical history of PE on Eliquis, presented to ED on 04/28/2024 with chief complaints of abdominal pain and distention that progressively was getting worse x1 day. He stated that the pain started last night along with abdominal distension, accompanied by intractable nausea and vomiting with no visible blood. He also notes that he has been having frequent diarrhea for the last 2 months, and had two episodes of diarrhea yesterday. He also states that over the last week, some of his bowel movements have been dark black, and some have been bright red, and that this may be associated with his known chronic hemorrhoids. Approximately 8 weeks ago, patient fell from a tree causing multiple left-sided rib fractures, for which he was treated at [facility] and discharged back to [facility] for rehabilitation. Had a presentation to [place] ED on 04/19/2024 for chest pain, found on CT to be pulmonary embolism with flail chest and acute acalculous cholecystitis. He was transferred to [facility] again and had an endoscopy performed but no colonoscopy, as pt was not able to complete bowel prep. Findings from EGD unknown per patient. Patient was placed on Eliquis for his pulmonary embolism at this time. On arrival to ED, patient was tachycardic at 121, WBC 23.6, Hgb 12.9, Hct 41.0, platelets 513, lactic 2.6, glucose 182. CT abdomen demonstrated an area of narrowing in the distal sigmoid colon with dilatation of proximal large bowel loops, neoplastic or inflammatory etiology cannot be excluded. Sigmoidoscopy recommended at that time. CT abdomen also positive for right lower lobe pulmonary artery lobar and segmental thromboembolism, mild wall thickening of pyloric antrum with mild surrounding fat stranding likely inflammatory, and diffuse gallbladder wall thickening with mild pericholecystic edema and fat stranding. In ED patient received morphine 4 mg, Zosyn, 1L of normal saline. Patient was admitted for abdominal pain and distention secondary due to SBO, NG tube was placed, Dr Hopper was contacted in ED and agreed to be consulted. Patient met 2/4 sepsis criteria, and with a possible infectious source in the abdomen, was suspected for sepsis and started on Ciprofloxacin and Flagyl. C. diff, urine, and blood cultures ordered. 04/29: This morning, patient's clinical status remains unchanged. He is still nonverbal and appears visually uncomfortable during palpation of abdomen, but unable to communicate any specific point of tenderness. Dr. Hopper recommends starting patient on TPN as he will not be able to undergo colonoscopy for several days, and will not be able to go to the operating room for several days after that. Appreciate further recommendations. 04/30: No acute overnight events. Clamped NG tube and started GoLytely at a slow rate with plans to perform colonoscopy tomorrow. Patient states that his pain is still present but controlled with Toradol. Started TPN today for nutrition. 05/01: No acute overnight events. Patient drank approximately half of his GoLytely, will continue slow administration. Dr. Lopez to evaluate later this afternoon. Patient feels unchanged since yesterday, still feeling his abdominal distension and diffuse abdominal pain controlled with morphine 2mg q4h prn. Tachycardia improved today, Hgb dropped over last 24h from 9.6 -> 8.6. Will monitor in AM and consider transfusing if patient below 8.0. Urine and blood cultures negative. 05/02: No acute overnight events. Dr. Lopez consulted, advised patient to continue taking GoLytely in preparation of either colonoscopy or operative intervention, appreciate further recommendations. Patient continuing to receive TPN with IV ciprofloxacin and flagyl, heparin drip for pulmonary embolism. Per patient's nurse, difficult IV access this morning as the access already in place unreliable, and pt refused further attempts for additional access. He was amenable for PICC line placement for continuation of IV medications, which was performed today without complication. Patient states that today he largely feels the same with slight relief in abdominal pain, and states that he has had two bowel movements overnight. Exam Vital Signs Temp Pulse Resp BP Pulse Ox O2 Del Method O2 Flow Rate 98.3 F 97 16 128/78 97 Nasal Cannula 3 05/02/24 12:00 05/02/24 14:28 05/02/24 14:28 05/02/24 14:28 05/02/24 14:28 05/02/24 14:28 05/02/24 14:28 Narrative Exam Gen: Awake, oriented x3, responsive to questions, in no acute distress HEENT: NCAT, PERRLA, EOMI, MMM, anicteric conjunctivae. CVS: normal S1 and S2. RRR. No M/R/G. Resp: CTA B/L. No rhonchi, rales, crackles or wheezing. Abd: Firm, diffusely tender to palpation, distended. BS+ in all 4 quadrants. MSK: Good ROM in BUE & BLE. No edema or rash. Neuro: Moves all extremities spontaneously Psych: appropriate mood and affect. Objective Labs 05/03/24 05:43 05/03/24 05:43 Labs: Laboratory Results - last 24 hr 05/02/24 05:16 WBC 7.8 RBC 2.94 L Hgb 7.8 L Hct 25.3 L MCV 86 MCH 26.5 MCHC 30.8 L RDW Std Deviation 62.8 H Plt Count 286 D Neut % (Auto) 58 Lymph % (Auto) 23 [place] % (Auto) 14 H Eos % (Auto) 3 Baso % (Auto) 1 Neut # (Auto) 4.5 Lymph # (Auto) 1.8 [place] # (Auto) 1.1 H Eos # (Auto) 0.3 Baso # (Auto) 0.1 Immature Gran # (Auto) 0.06 H Absolute Nucleated RBC 0.05 H Immature Gran % 1 H Nucleated RBC % 1 H APTT 51.0 H D Sodium 134 L Potassium 3.9 Chloride 102 Carbon Dioxide 28.3 Anion Gap 4 L BUN 16 Creatinine 0.4 L Estim Creat Clear Calc 159.5 eGFR > 60 BUN/Creatinine Ratio 40 H Glucose 109 H Calculated Osmolality 270 L Calcium 8.4 Corrected Calcium 9.4 Phosphorus 2.8 Magnesium 1.9 Total Bilirubin 0.4 AST 13 ALT < 7 L Alkaline Phosphatase 46 Total Protein 5.1 L Albumin 2.7 L Globulin 2.4 Albumin/Globulin Ratio 1.1 L Quality Measures Quality Measures sepsis Current suspected stage: sepsis Possible source: GI tract/intra-abdominal Blood cultures ordered: yes Antibiotic ordered: Yes Advance care planning discussed with:: patient Assessment & Plan Assessment Current Active Medications: Generic Name Dose Route Start Last Admin Trade Name Freq PRN Reason Stop Dose Admin Metronidazole 500 mg in 100 mls @ 200 mls/hr 04/29/24 04:30 05/02/24 13:15 Flagyl 500 Mg Iv IV 05/06/24 04:29 200 mls/hr Q8HR RICKIE Administration Ciprofloxacin/Dextrose 400 mg in 200 mls @ 200 mls/hr 04/29/24 04:30 05/02/24 08:57 Cipro Ivpb IV 05/06/24 04:29 200 mls/hr Q12HR RICKIE Administration Heparin Sodium/Dextrose 25,000 unit in 250 mls @ 12.819 mls/hr 04/29/24 12:00 05/02/24 05:25 Heparin In D5w Ivpb IV 05/13/24 11:59 17 units/kg/hr .[id number] RICKIE 12.106 mls/hr Administration Protocol 18 UNITS/KG/HR Fat Emulsion-[place] Oil/Soybean Oil 500 mls @ 32 mls/hr 05/01/24 18:00 05/02/24 01:14 Clinopid 20% Iv IV 05/29/24 17:59 0 mls/hr [id number]@1800 RICKIE Infusion Amino Acids 1,000 mls @ 100 mls/hr 05/02/24 10:21 05/02/24 10:11 Clinimix 4.25/5 IV 06/01/24 10:20 100 mls/hr .Q10H RICKIE Administration Metoclopramide HCl 10 mg 04/29/24 18:00 05/02/24 11:36 Metoclopramide Inj 5 Mg/Ml Vial 2 Ml IVP 05/29/24 17:59 10 mg Q6HR RICKIE Administration Protocol Morphine Sulfate 2 mg 04/29/24 04:25 05/02/24 13:30 Morphine Sulf Inj 10 Mg/Ml Vial IVP 05/04/24 04:24 2 mg Q4H PRN Administration PAIN SCALE 7-10 (Severe Ondansetron HCl 4 mg 04/29/24 04:25 05/01/24 06:10 Ondansetron Inj 2 Mg/Ml Inj 2 Ml IV 05/29/24 04:24 4 mg Q6H PRN Administration NAUSEA OR VOMITING Protocol Pantoprazole Sodium 40 mg 04/29/24 09:00 05/02/24 09:01 Pantoprazole Inj 40 Mg Vial IVP 05/29/24 08:59 40 mg QDAY RICKIE Administration Plan Mr. Onel Yoder is a 68-year-old male with past medical history of PE on Eliquis, presented to ED on 04/28/2024 with chief complaints of abdominal pain and distention that progressively was getting worse x1 day. Patient himself is nonverbal at baseline and unable to communicate, but his clinical ob at bedside was able to provide a history. O[employer] Sales Manager stated that the pain started last night along with abdominal distension, accompanied by intractable nausea and vomiting with no visible blood. She also notes that he has been having frequent diarrhea for the last 2 months, and had two episodes of diarrhea yesterday. Oem Sales Manager denies that patient has had any bloody bowel movements recently. #Sepsis, possibly sourced from abdomen Patient met 2 out of 4 SIRS criteria - tachypnea and leukocytosis Most likely source of infection abdomen In ED patient was given IVF and Zosyn - Lactic acid normalized - Continue IV ciprofloxacin and Flagyl (Course: 04/29-05/06) - C. diff cultures negative - Urine and blood cultures negative - Monitor CBC/CMP daily - PICC line placed for more reliable access for IV drug administration #GI Bleed #Abdominal pain Patient presented with chief complaints of abdominal pain, CT abdomen revealed: Area of narrowing in the distal sigmoid colon with dilatation of proximal large bowel loops, neoplastic or inflammatory etiology cannot be excluded. Recommend clinical correlation and followup with sigmoidoscopy. Mild wall thickening of pyloric antrum with mild surrounding fat stranding likely inflammatory. Recommend follow-up. Diffuse gallbladder wall thickening with mild pericholecystic edema and fat stranding, unchanged since the prior examination. - Dr. Hopper consulted, appreciate recommendations - GI Dr. Lopez consulted, appreciate recommendations - Currently receiving TPN - NG tube in place - Continue GoLytely - Morphine 2mg IV q4h prn pain - Fecal occult blood test positive #Normocytic Anemia With MCV in 80s, likely etiology being acute blood loss anemia secondary to patient's GI bleed. Plan to perform colonoscopy to find source of bleed - Will continue to monitor Hgb daily #Pulmonary Embolism Patient was diagnosed with PE not certain when Patient is on Eliquis, however reported dark stool since starting the medication Today CT revealed right lower lobe pulmonary artery lobar and segmental thromboembolism - Continue heparin drip - Monitor aPTT daily with goal 60-80s for optimal anticoagulation #Hypokalemia Initially 3.6 on arrival, decreased to 3.1 on morning of 04/29 - 3.5 today, no need for supplementation at this time - Will recheck in morning and supplement as needed #Rib Fractures Patient stated that he fell about 8 weeks ago from the tree, at that time CT chest revealed multiple rib fracture without flare chest with mild left hemithorax, patient was managed in [facility] - Morphine 2mg q4h prn pain Health maintenance: Disposition: Med surg Diet: TPN GI prophylaxis: Protonix 40mg IV qd DVT prophylaxis: SCDs and heparin drip Code: Full code Case disclosed with Attending Dr. Davis and my senior Dr. Magaña. Benitez Lyn PGY1 Attending Provider Attestation/Addendum I have examined the patient, reviewed labs and imaging findings, discussed the case with the resident(s), and reviewed entered orders. I agree with the plan of care as outlined in this note, with these additional summaries/recommendations: Patient seen at bedside. No acute overnight events. NG tube in place and receiving GoLytely in anticipation of colonoscopy. FOBT positive. Status post EGD at [facility] without source of bleeding identified. Patient also on heparin gtt. for significant pulmonary embolism. We recognize risk involved with giving heparin gtt. in the setting of GI bleed although given the size of pulmonary embolism benefits outweigh the risks. If hemoglobin continues to drop we will consider stopping heparin gtt. If patient unable to complete golytely then may require ex lap. Surgery and GI following. Patient updated on the plan and in agreement. Monitor H&H. Continue to replace potassium as needed. Dr. Davis
--- NOTE | 2024-05-02 14:56 | PD.SURPROG ---
Documentation for date of: 05/02/24 Subjective Subjective Narrative: Pt is seen and examined. He has had 2 bowel movements today Exam Vital Signs Temp Pulse Resp BP Pulse Ox O2 Del Method O2 Flow Rate 98.3 F 97 16 128/78 97 Nasal Cannula 3 05/02/24 12:00 05/02/24 14:28 05/02/24 14:28 05/02/24 14:28 05/02/24 14:28 05/02/24 14:28 05/02/24 14:28 Constitutional Constitutional: no acute distress Routine Abdominal Exam Abdominal: Present soft, normoactive bowel sounds, tenderness (minimal tenderness to deep palpation) and distended Assessment & Plan Diagnosis (1) Neoplasm of sigmoid colon: Status: Acute Plan May continue GoLytely as patient had multiple bowel movements in hopes of bowel perforation for possible colonoscopy
[2024-05-02] MEDS: LIDOCAINE INJ PF 1% 30 ML VIAL INFL (15:07)
--- NOTE | 2024-05-02 16:07 | PC.SS ---
rounding note: PT eval pending. Patient already open to [facility]. Depending on PT eval, SNF vs HH
[2024-05-02] MEDS: ONDANSETRON INJ 2 MG/ML INJ 2 ML 4 MG IV (19:37)
--- NOTE | 2024-05-02 20:20 | ESPR_ITS ---
Documentation for date of: 05/02/24 Subjective Subjective Interval history: Patient had another bowel movement Will gently try GoLytely If the patient can be clean outpatient can have 1 procedure Otherwise patient will have to have a diverting colostomy Exam Vital Signs Temp Pulse Resp BP Pulse Ox O2 Del Method O2 Flow Rate 98.4 F 93 17 123/83 92 L Room Air 3 05/02/24 16:00 05/02/24 16:00 05/02/24 16:00 05/02/24 16:00 05/02/24 16:00 05/02/24 16:00 05/02/24 14:28 Objective Labs 05/02/24 05:16 05/02/24 05:16 Labs: Laboratory Results - last 24 hr 05/02/24 05:16 WBC 7.8 RBC 2.94 L Hgb 7.8 L Hct 25.3 L MCV 86 MCH 26.5 MCHC 30.8 L RDW Std Deviation 62.8 H Plt Count 286 D Neut % (Auto) 58 Lymph % (Auto) 23 [place] % (Auto) 14 H Eos % (Auto) 3 Baso % (Auto) 1 Neut # (Auto) 4.5 Lymph # (Auto) 1.8 [place] # (Auto) 1.1 H Eos # (Auto) 0.3 Baso # (Auto) 0.1 Immature Gran # (Auto) 0.06 H Absolute Nucleated RBC 0.05 H Immature Gran % 1 H Nucleated RBC % 1 H APTT 51.0 H D Sodium 134 L Potassium 3.9 Chloride 102 Carbon Dioxide 28.3 Anion Gap 4 L BUN 16 Creatinine 0.4 L Estim Creat Clear Calc 159.5 eGFR > 60 BUN/Creatinine Ratio 40 H Glucose 109 H Calculated Osmolality 270 L Calcium 8.4 Corrected Calcium 9.4 Phosphorus 2.8 Magnesium 1.9 Total Bilirubin 0.4 AST 13 ALT < 7 L Alkaline Phosphatase 46 Total Protein 5.1 L Albumin 2.7 L Globulin 2.4 Albumin/Globulin Ratio 1.1 L Impressions Impression: # Sigmoid colon stricture versus mass Slow dose GoLytely to prep the colon for a colonoscopy Assessment & Plan A&P Narrative # Abnormal CT scan of the abdomen and pelvis showing focal narrowing of the colon in the region of sigmoid colon Since patient had a bowel movement Hopefully the patient in due course of time can take the GoLytely or it can be given through the NGT Although patient has not been able to tolerate either I will discuss the case with Dr. Hopper tomorrow morning Since the patient currently fully prepped with GoLytely He may need a diverting colostomy Thank you very much for the opportunity to participate in the care of this patient Time Spent With Patient Time: Total time spent is greater than 50% in coordination of care (as documented) at patient's floor/unit and/or counseling patient:
--- NOTE | 2024-05-02 21:33 | PC.NURSE ---
seen and examined by Dr. Lopez.
--- NOTE | 2024-05-02 21:37 | PD.EVENT ---
Documentation for date of: 05/02/24 Event Note Event Note: Patient got very distended with the GoLmiguelly Spoke with the NGT seen About 300 cc of bilious lavage was obtained The patient had 4 bowel movements today but he is not clear Recommendation is to have an exploratory laparotomy resection of the sigmoid with a diverting colostomy
[2024-05-02] MEDS: TPN-OUTSOURCED 1.5L - 2.49L 2,000 ML 100 ML IV (22:31)
[2024-05-03] VITALS (23 sets, daily range): BP systolic 81–137; BP diastolic 51–84; PULSE 78–118; RESP 17–24; TEMP 35.8–36.7; O2SAT 93–100; BMI 25.6
[2024-05-03] MEDS: METOCLOPRAMIDE INJ 5 MG/ML VIAL 2 ML 10 MG IVP ×4 (00:13→23:38)
[2024-05-03] MEDS: MORPHINE SULF INJ 10 MG/ML VIAL 2 MG IVP ×3 (02:02→10:17)
--- NOTE | 2024-05-03 02:03 | PC.NURSE ---
heparin drip stopped per Dr. Ruchi hong.
[2024-05-03] MEDS: metroNIDAZOLE/NS 500 MG IVPB 500 MG/100 ML BAG 200 MG IV (05:58)
[2024-05-03 06:20] LABS: Basophils # (Auto) 0.1 Thou/mm3 (0.0-0.2); Basophils % (Auto) 1 % (0-2.5); Eosinophils # (Auto) 0.3 Thou/mm3 (0.0-0.5); Eosinophils % (Auto) 4 % (0-10); Hematocrit 24.1 % (41.0-53.0); Immature Granulocytes % (Auto) 1 % (0-0); Immature Granulocytes Auto 0.09 Thou/mm3 (0.00-0.00); Lymphocytes # (Auto) 1.3 Thou/mm3 (1.0-4.8); Lymphocytes % (Auto) 17 % (10-50); Mean Corpuscular HGB Conc 31.5 g/dl (31.0-37.0); Mean Corpuscular Hemoglobin 26.7 pg (25.0-35.0); Mean Corpuscular Volume 85 fL (80-100); Monocytes # (Auto) 1.1 Thou/mm3 (0.0-0.8); Monocytes % (Auto) 14 % (0-12); Neutrophils # (Auto) 4.9 Thou/mm3 (1.8-7.7); Neutrophils % (Auto) 64 % (37-80); Nucleated Red Blood Cell # 0.09 Thou/mm3 (0.00-0.00); Nucleated Red Blood Cell % 1 /100 WBC (0); Platelet Count 263 Thou/mm3 (140-440); RDW Standard Deviation 59.6 fL (35.1-43.9); Red Blood Count 2.85 Miln/mm3 (4.50-5.90); White Blood Count 7.7 Thou/mm3 (3.8-10.6)
[2024-05-03 06:22] LABS: Hemoglobin 7.6 g/dL (13.5-16.0)
[2024-05-03 06:34] LABS: Partial Thromboplastin Time 33.8 Seconds (22.0-36.0)
[2024-05-03 06:54] LABS: Alanine Aminotransferase 7 U/L (10-49); Albumin, Serum 2.7 gm/dL (3.4-4.8); Albumin/Globulin Ratio 1.1 (1.2-2.2); Alkaline Phosphatase 47 U/L (46-116); Anion Gap 3 (7-16); Aspartate Amino Transferase 15 U/L (0-34); BUN/Creatinine Ratio 25 Ratio (12-20); Blood Urea Nitrogen 10 mg/dL (9-23); Calcium 8.2 mg/dL (8.3-10.6); Calcium (Corrected) 9.2 mg/dL (8.5-10.1); Carbon Dioxide 26.8 mMol/L (20.0-31.0); Chloride 99 mMol/L (98-107); Creatinine (Component) 0.4 mg/dL (0.6-1.3); Estimated Creatinine Clearance 159.5 mL/min (>60); Globulin 2.4 gm/dL (2.3-3.5); Glucose 112 mg/dL (74-106); Magnesium 1.7 mg/dL (1.6-2.6); Osmolality,Calculated 258 (275-295); Phosphorous 2.5 mg/dL (2.4-5.1); Potassium 3.7 mMol/L (3.4-5.1); Sodium 129 mMol/L (136-145); Total Protein 5.1 gm/dL (5.7-8.2); eGFR > 60 See Note
[2024-05-03] MEDS: CIPROFLOXACIN/D5w 400 MG IVPB 400 MG/200 ML BAG 200 MG IV (10:08)
[2024-05-03] MEDS: PANTOPRAZOLE INJ 40 MG VIAL IVP (10:08)
--- NOTE | 2024-05-03 11:13 | PD.SURPROG ---
Documentation for date of: 05/03/24 Subjective Subjective Narrative: Patient is seen and examined. He has had increased abdominal distention. Last night that was notified that patient was unable to tolerate GoLytely with increased abdominal distention and nausea. His NG tube was connected back to suction with immediate drainage of over 500 cc fluid. Exam Vital Signs Temp Pulse Resp BP Pulse Ox O2 Del Method O2 Flow Rate 98.1 F 92 18 123/74 94 L Room Air 3 05/03/24 08:00 05/03/24 08:00 05/03/24 08:00 05/03/24 08:00 05/03/24 08:00 05/03/24 08:00 05/02/24 14:28 Constitutional Constitutional: no acute distress Routine Abdominal Exam Abdominal: Present soft, tenderness (Mild tenderness to palpation throughout the abdomen, no rebound tenderness or peritonitis at this time) and distended Assessment & Plan Diagnosis (1) Neoplasm of sigmoid colon: Status: Acute Plan Patient has failed bowel preparation. He will be taken to the operating room for exploratory laparotomy, possible bowel resection and colostomy. Risks include but not limited to infection, bleeding, injury to bowel, spleen, ureter, surround neurovascular structures, abdominal sepsis and or abdominal abscess, need for further procedure and or operation, pneumonia, blood clot, heart attack, stroke and discussed with the patient and his . He also understands that he has pulmonary embolism and stopping his heparin drip for the surgery may increase his risk of progression of his pulmonary embolism that could be fatal. Benefits and alternatives explained to them. Patient and 's questions answered, they voiced understanding and agreed to proceed with the operation.
[2024-05-03 11:15] LABS: Bilirubin,Total 0.4 mg/dL (0.3-1.2)
--- NOTE | 2024-05-03 13:36 | PC.NURSE ---
PAIN MED NOT DUE UNTIL 1030. PATIENT ENCOURAGED TO INFORM NURSE IF PAIN INCREASES ANY FURTHER. IF SO WILL CALL DOCTOR.
--- NOTE | 2024-05-03 13:41 | SUR.PHASEI ---
1344 Patient arrived to recovery resting comfortably in [facility], on oxygen 10L via oxy mask with an oral airway in place, breathing unlabored, vital signs stable, dressing intact to abdomen; lyndsay, gauze, medipore tape, new from this colostomy to Q; stoma appears beefy red with pouch secure and intact, urinary catheter 16F in place with leg secure draining to gravity, lung sounds with upper inspiratory wheezes, bilateral radial pulses present when palpated, report received from Jacky JEFFERSON and Jai HUFF
--- NOTE | 2024-05-03 13:41 | PD.IMPROG ---
Documentation for date of: 05/03/24 Subjective Subjective Interval history: Spoke with the patient and the prior to going to the OR Surgery planned for today with exploratory laparotomy diverting colostomy and resection of the sigmoid colon Patient understands Exam Vital Signs Temp Pulse Resp BP Pulse Ox O2 Del Method O2 Flow Rate 98.1 F 92 18 123/74 94 L Room Air 3 05/03/24 08:00 05/03/24 08:00 05/03/24 08:00 05/03/24 08:00 05/03/24 08:00 05/03/24 08:00 05/02/24 14:28 Objective Labs 05/03/24 05:43 05/03/24 05:43 Labs: Laboratory Results - last 24 hr 05/03/24 05:43 WBC 7.7 RBC 2.85 L Hgb 7.6 L Hct 24.1 L MCV 85 MCH 26.7 MCHC 31.5 RDW Std Deviation 59.6 H Plt Count 263 Neut % (Auto) 64 Lymph % (Auto) 17 [place] % (Auto) 14 H Eos % (Auto) 4 Baso % (Auto) 1 Neut # (Auto) 4.9 Lymph # (Auto) 1.3 [place] # (Auto) 1.1 H Eos # (Auto) 0.3 Baso # (Auto) 0.1 Immature Gran # (Auto) 0.09 H Absolute Nucleated RBC 0.09 H Immature Gran % 1 H Nucleated RBC % 1 H APTT 33.8 D Sodium 129 L Potassium 3.7 Chloride 99 Carbon Dioxide 26.8 Anion Gap 3 L BUN 10 Creatinine 0.4 L Estim Creat Clear Calc 159.5 eGFR > 60 BUN/Creatinine Ratio 25 H Glucose 112 H Calculated Osmolality 258 L Calcium 8.2 L Corrected Calcium 9.2 Phosphorus 2.5 Magnesium 1.7 Total Bilirubin 0.4 AST 15 ALT 7 L Alkaline Phosphatase 47 Total Protein 5.1 L Albumin 2.7 L Globulin 2.4 Albumin/Globulin Ratio 1.1 L Impressions Impression: # Sigmoid colonic obstruction Conservative management has failed Plan is Exploratory laparotomy diverting colostomy and resection of the sigmoid colon Assessment & Plan A&P Narrative # Abnormal CT scan of the abdomen and pelvis showing focal narrowing of the colon in the region of sigmoid colon Since patient had a bowel movement Hopefully the patient in due course of time can take the GoLytely or it can be given through the NGT Although patient has not been able to tolerate either I will discuss the case with Dr. Hopper tomorrow morning Since the patient currently fully prepped with GoLytely He may need a diverting colostomy Thank you very much for the opportunity to participate in the care of this patient Time Spent With Patient Time: Total time spent is greater than 50% in coordination of care (as documented) at patient's floor/unit and/or counseling patient:
--- NOTE | 2024-05-03 13:45 | ESOP_ITS ---
Date of Procedure 05/03/24 Pre Op Diagnosis Large bowel obstruction Large inflammatory mass of sigmoid colon Post Op Diagnosis Large bowel obstruction Likely perforated sigmoid diverticulitis with contained abscess Procedure Exploratory laparotomy, sigmoid colectomy with end colostomy Findings Marked inflammatory reaction of sigmoid colon. He had contained abscess cavity of sigmoid colon with sigmoid perforation. No obvious evidence of any neoplasm or sigmoid mass. No evidence of peritoneal or pelvic nodules. Multiple loops of small bowel were adherent to inflammatory reaction in the sigmoid, no evidence of invasion. Procedure Description Patient brought into the operating room in supine position. After administration of general endotracheal anesthesia, patient was placed in low lithotomy position. His abdomen and perineum prepped and draped in standard surgical manner. Patient was noted to have an umbilical hernia. An incision was made around into the right of the umbilicus and extended up to suprapubic region. The hernia sac was excised. Downturned abdominal fascia was opened from the hernia site and extended inferiorly up to suprapubic region. Upon entering the abdominal cavity a Bookwalter retractor was placed for adequate exposure. Patient was noted to have significant inflammatory reaction of the pelvis with multiple loops of small bowel adherent into the inflammatory reaction. The small bowel was eviscerated and was from the inflammatory reaction. The small bowel was run from ligament of Treitz up to ileocecal junction, no obvious mass, lesions or any pathology noted. There was no evidence of any peritoneal or omental nodules. The omentum was also adherent into the sigmoid colon and the inflammatory reaction. Upon the omentum from the inflammatory reaction there was some purulent drainage encountered that appeared to be contained abscess. Patient was then noted to have a perforation of sigmoid colon. No obvious mass or any tumors noted. The sigmoid colon and proximal rectum was mobilized. The descending colon was also mobilized by dividing the white line of Toldt. Proximal rectum was divided with TA stapling device. Medial rectum was ligated with Enseal harmonic device. Proximal sigmoid colon was also divided with GIOVANA stapling device and the mesentery was ligated with Enseal harmonic device. Inferior mesenteric vessels were ligated and the sigmoid colon along with the perforation was removed. Abdomen and pelvis copiously and thoroughly washed and irrigated, all the fluids were suctioned and the suction fluid returned clear. The end of descending colon was reaching the anterior abdominal without any tension. A 3 cm circular incision was made in left mid abdomen and dissection was deepened into soft tissue. Anterior abdominal fascia was opened in vertical fashion. The rectus muscle was split, posterior abdominal fascia and peritoneum were opened. Opening was easily accommodating examiners to finger breaths. The end of descending colon was brought out of the opening to be matured as an end colostomy. Care was taken to make sure that orientation was appropriate without any tension or kinking. Abdomen and pelvis once again copiously and thoroughly washed and irrigated, all the fluids were suctioned and the suction fluid retur demetria clear. Hemostasis was adequate and satisfactory. Anterior abdominal fascia was closed with strata fix suture. The wound was copiously and thoroughly washed and irrigated and the incision was closed with lyndsay. The colostomy was matured in usual Marija fashion with 3-0 Vicryl sutures circumferentially. Appropriate colostomy appliance is applied. Incision was covered with sterile dressings. Patient tolerated procedure well. He was placed in supine position and extubated. He was breathing spontaneously and without difficulty and was transferred to postanesthesia care in stable condition. Instruments, needles and sponge counts were reported to be correct x 2. Anesthesia GETA Pathology / specimen Other (Sigmoid colon and part of omentum) Estimated Blood Loss 50 Condition Stable Disposition PACU Surgeon Jenn Hopper MD Surgical Staff Operation Date: 05/03/24 11:00 Case Staff MOP HANDLE ASSEMBLER: Gonzales Armijo RNinformation systems security officer: Edel Peralta
[2024-05-03] MEDS: ACETAMINOPHEN IVPB 1,000 MG/100 ML VIAL 250 MG IV (13:57)
--- NOTE | 2024-05-03 14:07 | SUR.PHASEI ---
[address] Hopper on order for fluid to run with MECHANICAL SPREADER OPERATOR, new orders received from NS at 10ml/hr, will place order and administer per MD order
[2024-05-03] MEDS: SODIUM CHLORIDE 0.9% 1000 ML 1,000 ML 10 ML IV ×2 (14:16→17:36)
[2024-05-03] MEDS: MORPHINE SULF 1 MG/ML PCA SYRINGE 30 ML PCA ×2 (14:25→22:36)
--- NOTE | 2024-05-03 14:27 | ESPR_ITS ---
<Statement entered by Anita Levy MD - 05/03/24 16:03> I discussed with and supervised the supervisor international reservations physician who took care of this patient. I personally saw and examined the patient and discussed the assessment and plan with the entire medicine team, including my attending , I agree with most of the assessment and plan as documented below Anita Levy M.D. PGY-2 Documentation for date of: 05/03/24 Subjective Subjective Interval history: Mr. Onel Yoder is a 68-year-old male with past medical history of PE on Eliquis, presented to ED on 04/28/2024 with chief complaints of abdominal pain and distention that progressively was getting worse x1 day. He stated that the pain started last night along with abdominal distension, accompanied by intractable nausea and vomiting with no visible blood. He also notes that he has been having frequent diarrhea for the last 2 months, and had two episodes of diarrhea yesterday. He also states that over the last week, some of his bowel movements have been dark black, and some have been bright red, and that this may be associated with his known chronic hemorrhoids. Approximately 8 weeks ago, patient fell from a tree causing multiple left-sided rib fractures, for which he was treated at [facility] and discharged back to for rehabilitation. Had a presentation to [place] ED on 04/19/2024 for chest pain, found on CT to be pulmonary embolism with flail chest and acute acalculous cholecystitis. He was transferred to [facility] again and had an endoscopy performed but no colonoscopy, as pt was not able to complete bowel prep. Findings from EGD unknown per patient. Patient was placed on Eliquis for his pulmonary embolism at this time. On arrival to ED, patient was tachycardic at 121, WBC 23.6, Hgb 12.9, Hct 41.0, platelets 513, lactic 2.6, glucose 182. CT abdomen demonstrated an area of narrowing in the distal sigmoid colon with dilatation of proximal large bowel loops, neoplastic or inflammatory etiology cannot be excluded. Sigmoidoscopy recommended at that time. CT abdomen also positive for right lower lobe pulmonary artery lobar and segmental thromboembolism, mild wall thickening of pyloric antrum with mild surrounding fat stranding likely inflammatory, and diffuse gallbladder wall thickening with mild pericholecystic edema and fat stranding. In ED patient received morphine 4 mg, Zosyn, 1L of normal saline. Patient was admitted for abdominal pain and distention secondary due to SBO, NG tube was placed, Dr Hopper was contacted in ED and agreed to be consulted. Patient met 2/4 sepsis criteria, and with a possible infectious source in the abdomen, was suspected for sepsis and started on Ciprofloxacin and Flagyl. C. diff, urine, and blood cultures ordered. 04/29: This morning, patient's clinical status remains unchanged. He is still nonverbal and appears visually uncomfortable during palpation of abdomen, but unable to communicate any specific point of tenderness. Dr. Hopper recommends starting patient on TPN as he will not be able to undergo colonoscopy for several days, and will not be able to go to the operating room for several days after that. Appreciate further recommendations. 04/30: No acute overnight events. Clamped NG tube and started GoLytely at a slow rate with plans to perform colonoscopy tomorrow. Patient states that his pain is still present but controlled with Toradol. Started TPN today for nutrition. 05/01: No acute overnight events. Patient drank approximately half of his GoLytely, will continue slow administration. Dr. Lopez to evaluate later this afternoon. Patient feels unchanged since yesterday, still feeling his abdominal distension and diffuse abdominal pain controlled with morphine 2mg q4h prn. Tachycardia improved today, Hgb dropped over last 24h from 9.6 -> 8.6. Will monitor in AM and consider transfusing if patient below 8.0. Urine and blood cultures negative. 05/02: No acute overnight events. Dr. Lopez consulted, advised patient to continue taking GoLytely in preparation of either colonoscopy or operative intervention, appreciate further recommendations. Patient continuing to receive TPN with IV ciprofloxacin and flagyl, heparin drip for pulmonary embolism. Per patient's nurse, difficult IV access this morning as the access already in place unreliable, and pt refused further attempts for additional access. He was amenable for PICC line placement for continuation of IV medications, which was performed today without complication. Patient states that today he largely feels the same with slight relief in abdominal pain, and states that he has had two bowel movements overnight. 05/03: Last night, patient failed his GoLytely regimen as he was experiencing increased abdominal distension and nausea despite having several bowel movements over the last [address] Lopez and Dr. Hopper instead opted for surgical intervention with exploratory laparotomy with sigmoid colectomy and end colostomy in the operating room, which was performed with no complications. Findings positive for marked inflammatory reaction of sigmoid colon and abscess cavity of sigmoid colon with sigmoid perforation. Per surgery will hold patient's heparin drip for at least 48 hours (until at least 05/05/24). Hgb 7.6, plan for recheck in the afternoon and will transfuse if <7.0. Exam Vital Signs Temp Pulse Resp BP Pulse Ox O2 Del Method O2 Flow Rate 98.1 F 92 18 123/74 94 L Room Air 3 05/03/24 08:00 05/03/24 08:00 05/03/24 08:00 05/03/24 08:00 05/03/24 08:00 05/03/24 08:00 05/02/24 14:28 Narrative Exam Gen: Awake, oriented x3, responsive to questions, in no acute distress HEENT: NCAT, PERRLA, EOMI, MMM, anicteric conjunctivae. CVS: normal S1 and S2. RRR. No M/R/G. Resp: CTA B/L. No rhonchi, rales, crackles or wheezing. Abd: Firm, diffusely tender to palpation, distended. BS+ in all 4 quadrants. MSK: Good ROM in BUE & BLE. No edema or rash. Neuro: Moves all extremities spontaneously Psych: appropriate mood and affect. Objective Labs 05/04/24 06:33 05/04/24 06:33 Labs: Laboratory Results - last 24 hr 05/03/24 05:43 WBC 7.7 RBC 2.85 L Hgb 7.6 L Hct 24.1 L MCV 85 MCH 26.7 MCHC 31.5 RDW Std Deviation 59.6 H Plt Count 263 Neut % (Auto) 64 Lymph % (Auto) 17 [place] % (Auto) 14 H Eos % (Auto) 4 Baso % (Auto) 1 Neut # (Auto) 4.9 Lymph # (Auto) 1.3 [place] # (Auto) 1.1 H Eos # (Auto) 0.3 Baso # (Auto) 0.1 Immature Gran # (Auto) 0.09 H Absolute Nucleated RBC 0.09 H Immature Gran % 1 H Nucleated RBC % 1 H APTT 33.8 D Sodium 129 L Potassium 3.7 Chloride 99 Carbon Dioxide 26.8 Anion Gap 3 L BUN 10 Creatinine 0.4 L Estim Creat Clear Calc 159.5 eGFR > 60 BUN/Creatinine Ratio 25 H Glucose 112 H Calculated Osmolality 258 L Calcium 8.2 L Corrected Calcium 9.2 Phosphorus 2.5 Magnesium 1.7 Total Bilirubin 0.4 AST 15 ALT 7 L Alkaline Phosphatase 47 Total Protein 5.1 L Albumin 2.7 L Globulin 2.4 Albumin/Globulin Ratio 1.1 L Quality Measures Quality Measures sepsis Current suspected stage: ruled out Possible source: GI tract/intra- abdominal Blood cultures ordered: yes Antibiotic ordered: No Advance care planning discussed with:: patient Assessment & Plan Assessment Current Active Medications: Generic Name Dose Route Start Last Admin Trade Name Freq PRN Reason Stop Dose Admin Fentanyl Citrate 50 mcg 05/03/24 13:50 Fentanyl Cit Inj 50 Mcg/Ml Amp 2ml IV 05/03/24 15:50 Q5M PRN PAIN SCALE 4-6 (Moderate Heparin Sodium/Dextrose 25,000 unit in 250 mls @ 12.819 mls/hr 04/29/24 12:00 05/03/24 03:15 Heparin In D5w Ivpb IV 05/13/24 11:59 Not Given .[id number] [facility] Protocol 18 UNITS/KG/HR Fat Emulsion-Dolomite Oil/Soybean Oil 500 mls @ 32 mls/hr 05/01/24 18:00 05/02/24 01:14 Clinopid 20% Iv IV 05/29/24 17:59 0 mls/hr [id number] [facility] Infusion Amino Acids 2,000 mls @ 100 mls/hr 05/02/24 20:20 05/02/24 22:31 Tpn-Outsourced IV 05/03/24 16:19 100 mls/hr .Q20H ONE Administration Amino Acids 2,000 mls @ 100 mls/hr 05/03/24 16:20 Tpn-Outsourced IV 05/04/24 12:19 .Q20H ONE Acetaminophen 1,000 mg in 100 mls @ 250 mls/hr 05/03/24 13:50 05/03/24 13:57 Ofirmev Inj IV 05/04/24 13:49 250 mls/hr Q6HR PRN Administration PAIN SCALE 4-10(Mod-Sev Sodium Chloride 1,000 mls @ 10 mls/hr 05/03/24 14:15 05/03/24 14:16 Ns IV 05/04/24 14:14 10 mls/hr .Q24H ONE Administration Metoclopramide HCl 10 mg 04/29/24 18:00 05/03/24 12:08 Metoclopramide Inj 5 Mg/Ml Vial 2 Ml IVP 05/29/24 17:59 Not Given Q6HR RICKIE Protocol Morphine Sulfate 2 mg 04/29/24 04:25 05/03/24 10:17 Morphine Sulf Inj 10 Mg/Ml Vial IVP 05/04/24 04:24 2 mg Q4H PRN Administration PAIN SCALE 7-10 (Severe Morphine Sulfate 0 mg 05/03/24 14:11 05/03/24 14:25 Morphine Sulf 1 Mg/Ml Live In Housekeeper Nanny Syringe 30 Ml FUNDS TRANSFER CLERK 05/08/24 14:10 30 mg PER ORDER RICKIE Administration Protocol Ondansetron HCl 4 mg 04/29/24 04:25 05/02/24 19:37 Ondansetron Inj 2 Mg/Ml Inj 2 Ml IV 05/29/24 04:24 4 mg Q6H PRN Administration NAUSEA OR VOMITING Protocol Pantoprazole Sodium 40 mg 04/29/24 09:00 05/03/24 10:08 Pantoprazole Inj 40 Mg Vial IVP 05/29/24 08:59 40 mg QDAY RICKIE Administration Plan Mr. Onel Yoder is a 68-year-old male with past medical history of PE on Eliquis, presented to ED on 04/28/2024 with chief complaints of abdominal pain and distention that progressively was getting worse x1 day. Patient himself is nonverbal at baseline and unable to communicate, but his greens or grounds superintendent at bedside was able to provide a history. Linux Kernel Developer stated that the pain started last night along with abdominal distension, accompanied by intractable nausea and vomiting with no visible blood. She also notes that he has been having frequent diarrhea for the last 2 months, and had two episodes of diarrhea yesterday. Linux Kernel Developer denies that patient has had any bloody bowel movements recently. #Sigmoid Abscess #Sigmoid Perforation Patient presented with chief complaints of abdominal pain, CT abdomen revealed: Area of narrowing in the distal sigmoid colon with dilatation of proximal large bowel loops, neoplastic or inflammatory etiology cannot be excluded. Recommend clinical correlation and followup with sigmoidoscopy. Mild wall thickening of pyloric antrum with mild surrounding fat stranding likely inflammatory. Recommend follow-up. Diffuse gallbladder wall thickening with mild pericholecystic edema and fat stranding, unchanged since the prior examination. Exploratory laparotomy with sigmoid colectomy and end colostomy performed demonstrating marked inflammatory reaction of sigmoid colon and abscess cavity of sigmoid colon with sigmoid perforation. - Dr. Hopper consulted, performed ex-lap today with no complications, appreciate further recommendations - GI Dr. Lopez consulted, appreciate recommendations - IV Zosyn started (Course: 05/03-05/10) - Currently receiving TPN - NG tube in place - Morphine 2mg IV q4h prn pain - Fecal occult blood test positive #Sepsis ruled out Patient met 2 out of 4 SIRS criteria - tachypnea and leukocytosis, both of which resolved during patient's inpatient stay In ED patient was given IVF and Zosyn C. diff, urine, and blood cultures all resulted as negative - Lactic acid normalized - Stop IV ciprofloxacin and Flagyl as sepsis has been ruled out - C. diff cultures negative - Urine and blood cultures negative - Monitor CBC/CMP daily #Normocytic Anemia With MCV in 80s, likely etiology being acute blood loss anemia secondary to patient's GI bleed. - Will continue to monitor Hgb daily - Recheck in PM, transfuse if Hgb <7.0 #Pulmonary Embolism Patient was diagnosed with PE not certain when Patient is on Eliquis, however reported dark stool since starting the medication Today CT revealed right lower lobe pulmonary artery lobar and segmental thromboembolism - Holding heparin drip for at least 48 hours (until at least 05/05/24) per Dr. Hopper #Hypokalemia Initially 3.6 on arrival, decreased to 3.1 on morning of 04/29 - 3.5 today, no need for supplementation at this time - Will recheck in morning and supplement as needed #Rib Fractures Patient stated that he fell about 8 weeks ago from the tree, at that time CT chest revealed multiple rib fracture without flare chest with mild left hemithorax, patient was managed in [employer] - Morphine 2mg q4h prn pain Health maintenance: Disposition: Med surg Diet: TPN GI prophylaxis: Protonix 40mg IV qd DVT prophylaxis: SCDs Code: Full code Case disclosed with Attending Dr. Davis and my senior Dr. Levy. Benitez Lyn PGY1 Attending Provider Attestation/Addendum I have examined the patient, reviewed labs and imaging findings, discussed the case with the resident(s), and reviewed entered orders. I agree with the plan of care as outlined in this note, with these additional summaries/recommendations: Patient seen at bedside. No acute overnight events. Patient is POD #1 status post exploratory laparotomy with sigmoid colectomy and end colostomy. Patient was found to have large bowel obstruction with perforated sigmoid and abscess formation. Patient reports his pain is currently controlled on FUNDS TRANSFER CLERK pump. Denies having BM. Continue n.p.o. and patient receiving TPN. Worsening leukocytosis today which is likely reactive. Continue mefoxin and if WBC count worsens or patient develops fever then we will broaden to IV Zosyn. Repeat blood cultures pending. Currently holding anticoagulation for history of large pulmonary embolism. Risks and benefits of holding anticoagulation were discussed with patient and he showed understanding. Will follow-up with surgery when safe to resume. Mild electrolyte abnormalities noted and replacement given. Repeat hematology and chemistry panel in AM. Dr. Davis
--- NOTE | 2024-05-03 15:21 | SUR.PHASEI ---
TPN restarted per current order, per DR. Hopper
--- NOTE | 2024-05-03 15:46 | SUR.PHASEI ---
Dr. Hopepr notified regard patient heart rate 115, MD stated that was ok, no new orders
--- NOTE | 2024-05-03 15:59 | SUR.PHASEI ---
1553 Report given to Yana JEFFERSON, patient meets discharge criteria from recovery, resting comfortably in [place], drowsy and talking with staff, per patient his pain is tolerable, states, I'm just sore , dressing intact; no bleeding noted, colostomy in place, stoma beefy red and dressing intact; with pouch, urinary catheter in place with leg secure; yellow urine in tubing, NG tube in place 51 at nare, with green fluid in tubing, to intermittent low suction, denies nausea. 1559 Patient transported via [facility] to room 377 without incident, Yana and MARYLU present in room to assist with transfer from [facility] to room, patient resting comfortably in bed with call light in reach, his was at bedside, Yana JEFFERSON remained in room
[2024-05-03] MEDS: TPN-OUTSOURCED 1.5L - 2.49L 2,000 ML 100 ML IV (16:37)
[2024-05-03] MEDS: PIPER/TAZO 3.375 GM 3.375 GM/50 ML BAG IV (16:46)
[2024-05-03 16:53] LABS: Hematocrit 28.7 % (41.0-53.0)
--- NOTE | 2024-05-03 16:55 | PC.NURSE ---
Addendum entered by Yana Gordon RN 05/03/24 17:23: MIDLINE ABD DRSG CDI. COLOSTOMY TO LT LOWER QUADRANT WITH STOMA PINK. NO STOOL IN BAG AT THIS TIME JUST SEROUSSANGENOUS DRAINAGE. ABD SOFT. BOWEL SOUNDS HYPOACTIVE. NGTUBE REMAINS INPLACE AND CLAMPED AT THIS TIME. Original Note: PATIENT RETURNED FROM SURGERY. SLEEPY, AROUSABLE. HEPARIN DRIP ORDER NOT CLEAR WAS ON HOLD FOR SURGERY. DR LEMUS CALLED AND ASKED IF HEPARIN DRIP TO REMAIN ON HOLD. VERIFIED YES TO REMAIN ON HOLD.
[2024-05-03] MEDS: CEFOXITIN 2 GM in SODIUM CHLORIDE 0.9% (P) 50 ML IV ×2 (17:39→23:37)
[2024-05-03] MEDS: FAT EMUL/OLIVE/SOY/PHOS 20% IV 500 ML 32 ML IV (18:37)
[2024-05-04] VITALS (11 sets, daily range): BP systolic 110–129; BP diastolic 78–90; PULSE 107–128; RESP 15–20; TEMP 36.1–36.8; O2SAT 94–97
[2024-05-04] MEDS: METOCLOPRAMIDE INJ 5 MG/ML VIAL 2 ML 10 MG IVP ×3 (05:27→18:08)
[2024-05-04] MEDS: CEFOXITIN 2 GM in SODIUM CHLORIDE 0.9% (P) 50 ML IV ×3 (05:28→18:08)
--- NOTE | 2024-05-04 05:42 | PC.NURSE ---
picc line red port occluded, purple port able to flush with ns and run tpn and lipids but unable to aspirate blood for lab draw.
[2024-05-04 07:50] LABS: Basophils # (Auto) 0.1 Thou/mm3 (0.0-0.2); Basophils % (Auto) 1 % (0-2.5); Eosinophils # (Auto) 0.1 Thou/mm3 (0.0-0.5); Eosinophils % (Auto) 1 % (0-10); Hematocrit 27.6 % (41.0-53.0); Immature Granulocytes % (Auto) 4 % (0-0); Immature Granulocytes Auto 0.76 Thou/mm3 (0.00-0.00); Lymphocytes # (Auto) 2.6 Thou/mm3 (1.0-4.8); Lymphocytes % (Auto) 14 % (10-50); Mean Corpuscular HGB Conc 32.6 g/dl (31.0-37.0); Mean Corpuscular Hemoglobin 27.5 pg (25.0-35.0); Mean Corpuscular Volume 84 fL (80-100); Monocytes # (Auto) 1.9 Thou/mm3 (0.0-0.8); Monocytes % (Auto) 10 % (0-12); Neutrophils % (Auto) 70 % (37-80); Nucleated Red Blood Cell # 0.66 Thou/mm3 (0.00-0.00); Nucleated Red Blood Cell % 4 /100 WBC (0); Platelet Count 311 Thou/mm3 (140-440); RDW Standard Deviation 59.3 fL (35.1-43.9); Red Blood Count 3.27 Miln/mm3 (4.50-5.90); White Blood Count 18.5 Thou/mm3 (3.8-10.6)
[2024-05-04 08:14] LABS: Alanine Aminotransferase 10 U/L (10-49); Albumin, Serum 2.6 gm/dL (3.4-4.8); Albumin/Globulin Ratio 1.2 (1.2-2.2); Alkaline Phosphatase 51 U/L (46-116); Anion Gap 9 (7-16); Aspartate Amino Transferase 13 U/L (0-34); BUN/Creatinine Ratio 18 Ratio (12-20); Bilirubin,Total 0.3 mg/dL (0.3-1.2); Blood Urea Nitrogen 20 mg/dL (9-23); Calcium 7.8 mg/dL (8.3-10.6); Calcium (Corrected) 8.9 mg/dL (8.5-10.1); Carbon Dioxide 21.2 mMol/L (20.0-31.0); Chloride 94 mMol/L (98-107); Creatinine (Component) 1.1 mg/dL (0.6-1.3); Globulin 2.1 gm/dL (2.3-3.5); Glucose 165 mg/dL (74-106); Magnesium 1.4 mg/dL (1.6-2.6); Osmolality,Calculated 256 (275-295); Phosphorous 2.7 mg/dL (2.4-5.1); Potassium 4.4 mMol/L (3.4-5.1); Sodium 124 mMol/L (136-145); Total Protein 4.7 gm/dL (5.7-8.2); eGFR > 60 See Note
[2024-05-04] MEDS: PANTOPRAZOLE INJ 40 MG VIAL IVP (09:37)
[2024-05-04] MEDS: Magnesium Sulfate 2 GM Ivpb 50 ML IV (09:37)
[2024-05-04] MEDS: TPN-OUTSOURCED 1.5L - 2.49L 2,000 ML 100 ML IV (12:59)
--- NOTE | 2024-05-04 13:24 | PD.SURPROG ---
Documentation for date of: 05/04/24 Subjective Subjective Narrative: Patient is seen and examined. He is complaining of incisional pain, controlled with PICKER TENDER HELPER. He denies nausea or vomiting Exam Vital Signs Temp Pulse Resp BP Pulse Ox O2 Del Method O2 Flow Rate 97.3 F 114 H 20 129/83 96 Nasal Cannula 3 05/04/24 12:00 05/04/24 12:00 05/04/24 12:00 05/04/24 12:00 05/04/24 12:00 05/04/24 12:00 05/04/24 12:00 Constitutional Constitutional: no acute distress Routine Abdominal Exam Comments: Abdomen is soft but distended. No bowel sounds noted today. Colostomy is pink, patent and present, however it is edematous without gas or any stool Assessment & Plan Assessment Additional comments: Postop day #1 status post sigmoid colectomy with colostomy Plan Continue IV antibiotics. DC NG tube. Use incentive spirometer and increase ambulation. Procedures Procedures Exploratory laparotomy, sigmoid colectomy with end colostomy
[2024-05-04 13:39] LABS: Anion Gap 7 (7-16); BUN/Creatinine Ratio 26 Ratio (12-20); Blood Urea Nitrogen 21 mg/dL (9-23); Calcium 7.5 mg/dL (8.3-10.6); Carbon Dioxide 22.7 mMol/L (20.0-31.0); Chloride 94 mMol/L (98-107); Creatinine (Component) 0.8 mg/dL (0.6-1.3); Estimated Creatinine Clearance 79.8 mL/min (>60); Glucose 139 mg/dL (74-106); Osmolality,Calculated 254 (275-295); Potassium 4.2 mMol/L (3.4-5.1); Sodium 124 mMol/L (136-145); eGFR > 60 See Note
[2024-05-04] MEDS: MORPHINE SULF 1 MG/ML PCA SYRINGE 30 ML PCA (14:43)
--- NOTE | 2024-05-04 14:45 | ESPR_ITS ---
<Statement entered by Anita Levy MD - 05/04/24 15:26> Patient seen and examined at bedside. Patient's Na continues to be low but could be secondary to pain. Will order urine lytes to further reassess. Continue with TPN, IVF, and Morphine PANTS CLOSER. Will DC NG tube per surgery recs. Heparin gtt currently held, and will touch base with Dr. Hopper tomorrow to restart. I discussed with and supervised the internal audit director physician who took care of this patient. I personally saw and examined the patient and discussed the assessment and plan with the entire medicine team, including my attending , I agree with most of the assessment and plan as documented below Anita Levy M.D. PGY-2 Documentation for date of: 05/04/24 Subjective Subjective Interval history: Mr. Onel Yoder is a 68-year-old male with past medical history of PE on Eliquis, presented to ED on 04/28/2024 with chief complaints of abdominal pain and distention that progressively was getting worse x1 day. He stated that the pain started last night along with abdominal distension, accompanied by intractable nausea and vomiting with no visible blood. He also notes that he has been having frequent diarrhea for the last 2 months, and had two episodes of diarrhea yesterday. He also states that over the last week, some of his bowel movements have been dark black, and some have been bright red, and that this may be associated with his known chronic hemorrhoids. Approximately 8 weeks ago, patient fell from a tree causing multiple left-sided rib fractures, for which he was treated at [facility] and discharged back to SNF for rehabilitation. Had a presentation to [facility] ED on 04/19/2024 for chest pain, found on CT to be pulmonary embolism with flail chest and acute acalculous cholecystitis. He was transferred to [facility] again and had an endoscopy performed but no colonoscopy, as pt was not able to complete bowel prep. Findings from EGD unknown per patient. Patient was placed on Eliquis for his pulmonary embolism at this time. On arrival to ED, patient was tachycardic at 121, WBC 23.6, Hgb 12.9, Hct 41.0, platelets 513, lactic 2.6, glucose 182. CT abdomen demonstrated an area of narrowing in the distal sigmoid colon with dilatation of proximal large bowel loops, neoplastic or inflammatory etiology cannot be excluded. Sigmoidoscopy recommended at that time. CT abdomen also positive for right lower lobe pulmonary artery lobar and segmental thromboembolism, mild wall thickening of pyloric antrum with mild surrounding fat stranding likely inflammatory, and diffuse gallbladder wall thickening with mild pericholecystic edema and fat stranding. In ED patient received morphine 4 mg, Zosyn, 1L of normal saline. Patient was admitted for abdominal pain and distention secondary due to SBO, NG tube was placed, Dr Hopper was contacted in ED and agreed to be consulted. Patient met 2/4 sepsis criteria, and with a possible infectious source in the abdomen, was suspected for sepsis and started on Ciprofloxacin and Flagyl. C. diff, urine, and blood cultures ordered. 04/29: This morning, patient's clinical status remains unchanged. He is still nonverbal and appears visually uncomfortable during palpation of abdomen, but unable to communicate any specific point of tenderness. Dr. Hopper recommends starting patient on TPN as he will not be able to undergo colonoscopy for several days, and will not be able to go to the operating room for several days after that. Appreciate further recommendations. 04/30: No acute overnight events. Clamped NG tube and started GoLytely at a slow rate with plans to perform colonoscopy tomorrow. Patient states that his pain is still present but controlled with Toradol. Started TPN today for nutrition. 05/01: No acute overnight events. Patient drank approximately half of his GoLytely, will continue slow administration. Dr. Lopez to evaluate later this afternoon. Patient feels unchanged since yesterday, still feeling his abdominal distension and diffuse abdominal pain controlled with morphine 2mg q4h prn. Tachycardia improved today, Hgb dropped over last 24h from 9.6 -> 8.6. Will monitor in AM and consider transfusing if patient below 8.0. Urine and blood cultures negative. 05/02: No acute overnight events. Dr. Lopez consulted, advised patient to continue taking GoLytely in preparation of either colonoscopy or operative intervention, appreciate further recommendations. Patient continuing to receive TPN with IV ciprofloxacin and flagyl, heparin drip for pulmonary embolism. Per patient's nurse, difficult IV access this morning as the access already in place unreliable, and pt refused further attempts for additional access. He was amenable for PICC line placement for continuation of IV medications, which was performed today without complication. Patient states that today he largely feels the same with slight relief in abdominal pain, and states that he has had two bowel movements overnight. 05/03: Last night, patient failed his GoLytely regimen as he was experiencing increased abdominal distension and nausea despite having several bowel movements over the last [address] Lopez and Dr. Hopper instead opted for surgical intervention with exploratory laparotomy with sigmoid colectomy and end colostomy in the operating room, which was performed with no complications. Findings positive for marked inflammatory reaction of sigmoid colon and abscess cavity of sigmoid colon with sigmoid perforation. Per surgery will hold patient's heparin drip for at least 48 hours (until at least 05/05/24). Hgb 7.6, plan for recheck in the afternoon and will transfuse if <7.0. 05/04: No overnight events to note. Switched patient's IV Zosyn to IV Cefoxitin x 7 days, and morphine for post-op pain management. Holding heparin drip as PE treatment at least until tomorrow (48 hours post-op), will touch base with Dr. Hopper on when exactly to restart the drip. Patient complains of a sore belly pain since the surgery, stating that it is a 6/10 constant abdominal pain. WBC elevated from 7.7 -> 18.5, and with patient's tachycardia in the 120s since his surgery, he now meets 2/4 SIRS criteria. Re-ordered blood cultures to assess for possibility of new bacteremia since surgery. Hyponatremia worsened from 129 -> 124, ordered urine osmolytes to evaluate for salt wasting. NG tube clamped, continuining TPN. Exam Vital Signs Temp Pulse Resp BP Pulse Ox O2 Del Method O2 Flow Rate 97.3 F 114 H 20 129/83 96 Nasal Cannula 3 05/04/24 12:00 05/04/24 12:00 05/04/24 12:00 05/04/24 12:00 05/04/24 12:00 05/04/24 12:00 05/04/24 12:00 Narrative Exam Gen: Awake, oriented x3, responsive to questions, in no acute distress HEENT: NCAT, PERRLA, EOMI, MMM, anicteric conjunctivae. CVS: normal S1 and S2. RRR. No M/R/G. Resp: CTA B/L. No rhonchi, rales, crackles or wheezing. Abd: Firm, diffusely tender to palpation, distended but improved since pre-op, ostomy bag in place. BS+ in all 4 quadrants. MSK: Good ROM in BUE & BLE. No edema or rash. Neuro: Moves all extremities spontaneously Psych: appropriate mood and affect. Objective Labs 05/05/24 05:10 05/05/24 05:10 Labs: Laboratory Results - last 24 hr 05/03/24 05/04/24 05/04/24 16:41 06:33 12:55 WBC 18.5 H D RBC 3.27 L Hgb 9.0 L 9.0 L Hct 28.7 L 27.6 L MCV 84 MCH 27.5 MCHC 32.6 RDW Std Deviation 59.3 H Plt Count 311 D Neut % (Auto) 70 Lymph % (Auto) 14 Eddy % (Auto) 10 Eos % (Auto) 1 Baso % (Auto) 1 Neut # (Auto) 13.0 H Lymph # (Auto) 2.6 Eddy # (Auto) 1.9 H Eos # (Auto) 0.1 Baso # (Auto) 0.1 Immature Gran # (Auto) 0.76 H Absolute Nucleated RBC 0.66 H Immature Gran % 4 H Nucleated RBC % 4 H Sodium 124 L 124 L Potassium 4.4 D 4.2 Chloride 94 L 94 L Carbon Dioxide 21.2 22.7 Anion Gap 9 7 BUN 20 21 Creatinine 1.1 D 0.8 Estim Creat Clear Calc 58.0 L 79.8 eGFR > 60 > 60 BUN/Creatinine Ratio 18 26 H Glucose 165 H D 139 H Calculated Osmolality 256 L 254 L Calcium 7.8 L 7.5 L Corrected Calcium 8.9 Phosphorus 2.7 Magnesium 1.4 L Total Bilirubin 0.3 AST 13 ALT 10 Alkaline Phosphatase 51 Total Protein 4.7 L Albumin 2.6 L Globulin 2.1 L Albumin/Globulin Ratio 1.2 Quality Measures Quality Measures sepsis Current suspected stage: sepsis Possible source: GI tract/intra-abdominal Blood cultures ordered: yes Antibiotic ordered: Yes Advance care planning discussed with:: patient Assessment & Plan Assessment Current Active Medications: Generic Name Dose Route Start Last Admin Trade Name Freq PRN Reason Stop Dose Admin Ascorbic Acid 500 mg 05/04/24 21:00 Ascorbic Acid 250 Mg Tablet PO 06/03/24 20:59 BID RICKIE Docusate Sodium 100 mg 05/04/24 21:00 Docusate Sod 100 Mg Capsule PO 06/03/24 20:59 BID RICKIE Protocol Fat Emulsion-[place] Oil/Soybean Oil 500 mls @ 32 mls/hr 05/01/24 18:00 05/03/24 18:37 Clinopid 20% Iv IV 05/29/24 17:59 32 mls/hr [email or web address] RICKIE Administration Cefoxitin Sodium 2 gm/ Sodium 50 mls @ 100 mls/hr 05/03/24 18:00 05/04/24 12:47 Chloride IV 05/10/24 17:59 100 mls/hr Q6HR RICKIE Administration Sodium Chloride 1,000 mls @ 10 mls/hr 05/03/24 17:25 05/03/24 17:36 Ns IV 05/04/24 17:24 10 mls/hr .Q24H RICKIE Administration Amino Acids 2,000 mls @ 100 mls/hr 05/04/24 12:20 05/04/24 12:59 Tpn-Outsourced IV 05/05/24 08:19 100 mls/hr .Q20H ONE Administration Amino Acids 2,000 mls @ 100 mls/hr 05/05/24 08:20 Tpn-Outsourced IV 05/06/24 04:19 .Q20H ONE Metoclopramide HCl 10 mg 04/29/24 18:00 05/04/24 12:54 Metoclopramide Inj 5 Mg/Ml Vial 2 Ml IVP 05/29/24 17:59 10 mg Q6HR RICKIE Administration Protocol Morphine Sulfate 0 mg 05/03/24 14:11 05/03/24 22:36 Morphine Sulf 1 Mg/Ml Wild Life Photographer Syringe 30 Ml PANTS CLOSER 05/08/24 14:10 30 mg PER ORDER RICKIE Administration Protocol Ondansetron HCl 4 mg 04/29/24 04:25 05/02/24 19:37 Ondansetron Inj 2 Mg/Ml Inj 2 Ml IV 05/29/24 04:24 4 mg Q6H PRN Administration NAUSEA OR VOMITING Protocol Pantoprazole Sodium 40 mg 04/29/24 09:00 05/04/24 09:37 Pantoprazole Inj 40 Mg Vial IVP 05/29/24 08:59 40 mg QDAY RICKIE Administration Zinc Sulfate 220 mg 05/05/24 09:00 Zinc Sulfate 220 Mg Capsule PO 06/04/24 08:59 QDAY RICKIE Plan Mr. Onel Yoder is a 68-year-old male with past medical history of PE on Eliquis, presented to ED on 04/28/2024 with chief complaints of abdominal pain and distention that progressively was getting worse x1 day. Patient himself is nonverbal at baseline and unable to communicate, but his spiral tube winder at bedside was able to provide a history. Supervisor Billposting stated that the pain started last night along with abdominal distension, accompanied by intractable nausea and vomiting with no visible blood. She also notes that he has been having frequent diarrhea for the last 2 months, and had two episodes of diarrhea yesterday. Supervisor Billposting denies that patient has had any bloody bowel movements recently. #Sigmoid Abscess #Sigmoid Perforation Patient presented with chief complaints of abdominal pain, CT abdomen revealed: Area of narrowing in the distal sigmoid colon with dilatation of proximal large bowel loops, neoplastic or inflammatory etiology cannot be excluded. Recommend clinical correlation and followup with sigmoidoscopy. Mild wall thickening of pyloric antrum with mild surrounding fat stranding likely inflammatory. Recommend follow-up. Diffuse gallbladder wall thickening with mild pericholecystic edema and fat stranding, unchanged since the prior examination. Exploratory laparotomy with sigmoid colectomy and end colostomy performed demonstrating marked inflammatory reaction of sigmoid colon and abscess cavity of sigmoid colon with sigmoid perforation. - Dr. Hopper consulted, performed ex-lap yesterday with no complications, appreciate further recommendations - GI Dr. Lopez consulted, appreciate recommendations - IV Cefoxitin started (Course: 05/03-05/10) - Currently receiving TPN - NG tube discontinued - Morphine 2mg IV q4h prn pain #Sepsis, possible Patient met 2 out of 4 SIRS criteria - tachycardia and leukocytosis, along with known sigmoid abscess (removed in sigmoid colectomy 05/03) In ED patient was given IVF and Zosyn C. diff, urine, and blood cultures all resulted as negative - Lactic acid normalized - C. diff cultures negative - Initial blood cultures negative, repeat blood cultures ordered post-op - Monitor CBC/CMP daily #Normocytic Anemia With MCV in 80s, likely etiology being acute blood loss anemia secondary to patient's GI bleed. - Will continue to monitor Hgb daily - Transfuse if Hgb <7.0 #Pulmonary Embolism Patient was diagnosed with PE not certain when Patient is on Eliquis, however reported dark stool since starting the medication Today CT revealed right lower lobe pulmonary artery lobar and segmental thromboembolism - Holding heparin drip for at least 48 hours post-op (until at least 05/05/24) per Dr. Hopper, will coordinate on when exactly to restart the drip #Electrolyte Imbalances Potassium initially 3.6 on arrival, decreased to 3.1 on morning of 04/29, increased over following days - Potassium stable today, no need for supplementation - Sodium lowered from 129 -> 124, possibly a consequence of patient's post-op pain - Urine osmolytes ordered to assess if patient is salt wasting through kidneys - Continue TPN which contains sodium, will consider hypertonic fluids in future if necessary to raise Na level #Rib Fractures Patient stated that he fell about 8 weeks ago from the tree, at that time CT chest revealed multiple rib fracture without flare chest with mild left hemithorax, patient was managed in [facility] - Morphine 2mg q4h prn pain Health maintenance: Disposition: Med surg Diet: TPN GI prophylaxis: Protonix 40mg IV qd DVT prophylaxis: SCDs Code: Full code Case disclosed with Attending Dr. Davis and my senior Dr. Levy. Benitez Lyn PGY1 Attending Provider Attestation/Addendum I have examined the patient, reviewed labs and imaging findings, discussed the case with the resident(s), and reviewed entered orders. I agree with the plan of care as outlined in this note, with these additional summaries/recommendations: Patient seen at bedside. No acute overnight events. Patient is POD #2 status post exploratory laparotomy with sigmoid colectomy and end colostomy. Patient was found to have large bowel obstruction with perforated sigmoid and abscess formation. Patient reports his pain is currently controlled on PANTS CLOSER pump. Denies having BM. Continue n.p.o. and patient receiving TPN. Worsening leukocytosis today which is likely reactive. Continue mefoxin and if WBC count worsens or patient develops fever then we will broaden to IV Zosyn. Repeat blood cultures pending. Currently holding anticoagulation for history of large pulmonary embolism. Risks and benefits of holding anticoagulation were discussed with patient and he showed understanding. Will follow-up with surgery when safe to resume. Mild electrolyte abnormalities noted and replacement given. Repeat hematology and chemistry panel in AM. Dr. Davis
--- NOTE | 2024-05-04 18:24 | ESPR_ITS ---
Documentation for date of: 05/04/24 Subjective Subjective Interval history: Status post diverting colostomy and sigmoid colectomy Exam Vital Signs Temp Pulse Resp BP Pulse Ox O2 Del Method O2 Flow Rate 97.6 F 113 H 16 122/90 H 95 Nasal Cannula 3 05/04/24 16:00 05/04/24 16:00 05/04/24 16:00 05/04/24 16:00 05/04/24 16:00 05/04/24 16:00 05/04/24 16:00 Objective Labs 05/04/24 06:33 05/04/24 12:55 Labs: Laboratory Results - last 24 hr 05/04/24 05/04/24 06:33 12:55 WBC 18.5 H D RBC 3.27 L Hgb 9.0 L Hct 27.6 L MCV 84 MCH 27.5 MCHC 32.6 RDW Std Deviation 59.3 H Plt Count 311 D Neut % (Auto) 70 Lymph % (Auto) 14 [place] % (Auto) 10 Eos % (Auto) 1 Baso % (Auto) 1 Neut # (Auto) 13.0 H Lymph # (Auto) 2.6 [place] # (Auto) 1.9 H Eos # (Auto) 0.1 Baso # (Auto) 0.1 Immature Gran # (Auto) 0.76 H Absolute Nucleated RBC 0.66 H Immature Gran % 4 H Nucleated RBC % 4 H Sodium 124 L 124 L Potassium 4.4 D 4.2 Chloride 94 L 94 L Carbon Dioxide 21.2 22.7 Anion Gap 9 7 BUN 20 21 Creatinine 1.1 D 0.8 Estim Creat Clear Calc 58.0 L 79.8 eGFR > 60 > 60 BUN/Creatinine Ratio 18 26 H Glucose 165 H D 139 H Calculated Osmolality 256 L 254 L Calcium 7.8 L 7.5 L Corrected Calcium 8.9 Phosphorus 2.7 Magnesium 1.4 L Total Bilirubin 0.3 AST 13 ALT 10 Alkaline Phosphatase 51 Total Protein 4.7 L Albumin 2.6 L Globulin 2.1 L Albumin/Globulin Ratio 1.2 Impressions Impression: # Postoperative day 1 status post sigmoid colectomy and diverting colostomy Continue current management Assessment & Plan A&P Narrative # Abnormal CT scan of the abdomen and pelvis showing focal narrowing of the colon in the region of sigmoid colon Since patient had a bowel movement Hopefully the patient in due course of time can take the GoLytely or it can be given through the NGT Although patient has not been able to tolerate either I will discuss the case with Dr. Hopper tomorrow morning Since the patient currently fully prepped with GoLytely He may need a diverting colostomy Thank you very much for the opportunity to participate in the care of this patient Time Spent With Patient Time: Total time spent is greater than 50% in coordination of care (as documented) at patient's floor/unit and/or counseling patient:
[2024-05-04] MEDS: ASCORBIC ACID 250 MG TABLET 500 MG PO (21:36)
[2024-05-04] MEDS: DOCUSATE SOD 100 MG CAPSULE PO (21:36)
[2024-05-05] VITALS (19 sets, daily range): BP systolic 119–136; BP diastolic 63–80; PULSE 88–102; RESP 16–96; TEMP 36.1–36.7; O2SAT 93–96; BMI 25.5; BMI 26.0
[2024-05-05] MEDS: CEFOXITIN 2 GM in SODIUM CHLORIDE 0.9% (P) 50 ML IV ×5 (00:39→23:53)
[2024-05-05] MEDS: METOCLOPRAMIDE INJ 5 MG/ML VIAL 2 ML 10 MG IVP ×5 (00:40→23:57)
[2024-05-05 05:37] LABS: Basophils # (Auto) 0.1 Thou/mm3 (0.0-0.2); Basophils % (Auto) 0 % (0-2.5); Eosinophils # (Auto) 0.5 Thou/mm3 (0.0-0.5); Eosinophils % (Auto) 3 % (0-10); Hematocrit 21.7 % (41.0-53.0); Immature Granulocytes % (Auto) 9 % (0-0); Immature Granulocytes Auto 1.48 Thou/mm3 (0.00-0.00); Lymphocytes # (Auto) 2.1 Thou/mm3 (1.0-4.8); Lymphocytes % (Auto) 12 % (10-50); Mean Corpuscular HGB Conc 31.8 g/dl (31.0-37.0); Mean Corpuscular Hemoglobin 26.8 pg (25.0-35.0); Mean Corpuscular Volume 84 fL (80-100); Monocytes # (Auto) 1.5 Thou/mm3 (0.0-0.8); Monocytes % (Auto) 9 % (0-12); Neutrophils # (Auto) 11.8 Thou/mm3 (1.8-7.7); Neutrophils % (Auto) 67 % (37-80); Nucleated Red Blood Cell # 0.14 Thou/mm3 (0.00-0.00); Nucleated Red Blood Cell % 1 /100 WBC (0); Platelet Count 238 Thou/mm3 (140-440); RDW Standard Deviation 58.4 fL (35.1-43.9); Red Blood Count 2.57 Miln/mm3 (4.50-5.90); White Blood Count 17.5 Thou/mm3 (3.8-10.6)
[2024-05-05 05:53] LABS: Hemoglobin 6.9 g/dL (13.5-16.0)
[2024-05-05 06:36] LABS: Alanine Aminotransferase 8 U/L (10-49); Albumin, Serum 2.5 gm/dL (3.4-4.8); Albumin/Globulin Ratio 1.1 (1.2-2.2); Alkaline Phosphatase 51 U/L (46-116); Anion Gap 6 (7-16); Aspartate Amino Transferase 12 U/L (0-34); BUN/Creatinine Ratio 23 Ratio (12-20); Bilirubin,Total 0.4 mg/dL (0.3-1.2); Blood Urea Nitrogen 14 mg/dL (9-23); Calcium 7.8 mg/dL (8.3-10.6); Carbon Dioxide 24.7 mMol/L (20.0-31.0); Chloride 94 mMol/L (98-107); Creatinine (Component) 0.6 mg/dL (0.6-1.3); Estimated Creatinine Clearance 106.3 mL/min (>60); Globulin 2.3 gm/dL (2.3-3.5); Glucose 113 mg/dL (74-106); Magnesium 1.9 mg/dL (1.6-2.6); Osmolality,Calculated 253 (275-295); Phosphorous 1.9 mg/dL (2.4-5.1); Potassium 3.3 mMol/L (3.4-5.1); Sodium 125 mMol/L (136-145); Total Protein 4.8 gm/dL (5.7-8.2); eGFR > 60 See Note
[2024-05-05 07:14] LABS: Creatinine,Random Urine 46 mg/dL (30-125); Sodium,Urine Random 16.4 mMol/L (20.0-110.0)
[2024-05-05 08:03] LABS: Hematocrit 20.8 % (41.0-53.0)
[2024-05-05 08:19] LABS: Hemoglobin 6.5 g/dL (13.5-16.0)
[2024-05-05] MEDS: TPN-OUTSOURCED 1.5L - 2.49L 2,000 ML 100 ML IV (08:59)
[2024-05-05] MEDS: PANTOPRAZOLE INJ 40 MG VIAL IVP (09:00)
[2024-05-05] MEDS: DOCUSATE SOD 100 MG CAPSULE PO (09:00)
[2024-05-05] MEDS: ZINC SULFATE 220 MG CAPSULE PO (09:00)
[2024-05-05] MEDS: ASCORBIC ACID 250 MG TABLET 500 MG PO (09:00)
[2024-05-05] MEDS: POT PHOS 15 mMol in NS 250 ML 15 MMOL/250 ML BAG 62.5 MMOL IV ×2 (10:09→14:34)
--- NOTE | 2024-05-05 12:31 | ESPR_ITS ---
Documentation for date of: 05/05/24 Subjective Subjective Narrative: Patient is seen and examined. He is planing of incisional pain. He denies any nausea or vomiting Exam Vital Signs Temp Pulse Resp BP Pulse Ox O2 Del Method O2 Flow Rate 97.4 F 97 17 128/76 96 Room Air 3 05/05/24 12:19 05/05/24 12:19 05/05/24 12:19 05/05/24 12:19 05/05/24 12:19 05/05/24 12:00 05/05/24 04:00 Constitutional Constitutional: no acute distress Routine Abdominal Exam Comments: Abdomen is soft and mildly distended. He has hypoactive bowel sounds. Incision is clean, dry and intact. Colostomy is pink, patent with less edema than y day. He has minimal gas in the colostomy bag Assessment & Plan Assessment Additional comments: Postop day #2 status post sigmoid colectomy with colostomy Plan Continue IV antibiotics. Patient was ordered 2 units of PRBC, recommend 1 unit FFP. Will increase morphine PERSONNEL PSYCHOLOGIST dose. May have ice chips. Use incentive spirometer and increase ambulation Procedures Procedures Exploratory laparotomy, sigmoid colectomy with end colostomy
[2024-05-05] MEDS: MORPHINE SULF 1 MG/ML PCA SYRINGE 30 ML PCA (12:32)
--- NOTE | 2024-05-05 14:37 | PC.DIETICIAN ---
RD note: Pt is receiving PPN not TPN which is <1200kcal/day when lipids are given. Consider change to central mix if extended alternative nutrition required. Thank you
[2024-05-05] MEDS: FUROSEMIDE INJ 10 MG/ML 4ML VIAL 40 MG IVP (15:49)
--- NOTE | 2024-05-05 16:43 | ESPR_ITS ---
<Statement entered by Anita Levy MD - 05/05/24 22:42> I discussed with and supervised the health information internship physician who took care of this patient. I personally saw and examined the patient and discussed the assessment and plan with the entire medicine team, including my attending Dr. Davis, I agree with most of the assessment and plan as documented below Anita Levy M.D. PGY-2 Documentation for date of: 05/05/24 Subjective Subjective Interval history: Patient was seen and examined at bedside. Overnight, hemoglobin 6.9 with repeat H&H showing no change. Underwent 2 units PRBC transfusion. Posttransfusion H&H pending. Will continue to monitor. Patient today complains of some abdominal pain at his surgical area. Colostomy bag showed minimal dark liquid stool. Denies any fever. Per Dr. Hopper, GLASSWARE ENGRAVER pump changed to 1 mg morphine every 10 minutes. Will also repeat chest x-ray as patient has been complaining of some chest pain and increased shortness of breath. Physical therapy ordered to assist with ambulation and strengthening. Encouraged to use spirometry. WBC slight downtrend 17.5, hyponatremia 125, hypokalemia 3.3, hypophos 1.9. Repleated with 15mmol KPhos. Review of systems otherwise negative except what is mentioned above. Exam Vital Signs Temp Pulse Resp BP Pulse Ox O2 Del Method O2 Flow Rate 97.6 F 90 17 131/70 H 95 Room Air 0 05/05/24 16:28 05/05/24 16:28 05/05/24 16:28 05/05/24 16:28 05/05/24 16:28 05/05/24 16:00 05/05/24 16:28 Narrative Exam Gen: Awake, oriented x3, responsive to questions, in no acute distress HEENT: NCAT, PERRLA, EOMI, MMM, anicteric conjunctivae. CVS: normal S1 and S2. RRR. No M/R/G. Resp: CTA B/L. No rhonchi, rales, crackles or wheezing. Abd: Firm, diffusely tender to palpation, distended but improved since pre-op, ostomy bag in place. BS+ in all 4 quadrants. MSK: Good ROM in BUE & BLE. No edema or rash. Neuro: Moves all extremities spontaneously Psych: appropriate mood and affect. Objective Labs 05/06/24 05:06 05/06/24 05:06 Labs: Laboratory Results - last 24 hr 05/05/24 05/05/24 05/05/24 05:10 05:42 07:25 WBC 17.5 H RBC 2.57 L Hgb 6.9 L* D 6.5 L* Hct 21.7 L* 20.8 L* MCV 84 MCH 26.8 MCHC 31.8 RDW Std Deviation 58.4 H Plt Count 238 D Neut % (Auto) 67 Lymph % (Auto) 12 [place] % (Auto) 9 Eos % (Auto) 3 Baso % (Auto) 0 Neut # (Auto) 11.8 H Lymph # (Auto) 2.1 [place] # (Auto) 1.5 H Eos # (Auto) 0.5 Baso # (Auto) 0.1 Immature Gran # (Auto) 1.48 H Absolute Nucleated RBC 0.14 H Immature Gran % 9 H Nucleated RBC % 1 H Sodium 125 L Potassium 3.3 L D Chloride 94 L Carbon Dioxide 24.7 Anion Gap 6 L BUN 14 Creatinine 0.6 Estim Creat Clear Calc 106.3 eGFR > 60 BUN/Creatinine Ratio 23 H Glucose 113 H Calculated Osmolality 253 L Calcium 7.8 L Corrected Calcium 9.0 Phosphorus 1.9 L Magnesium 1.9 Total Bilirubin 0.4 AST 12 ALT 8 L Alkaline Phosphatase 51 Total Protein 4.8 L Albumin 2.5 L Globulin 2.3 Albumin/Globulin Ratio 1.1 L Ur Random Creatinine 46 Ur Random Sodium 16.4 L Blood Type A Negative Antibody Screen NEGATIVE Crossmatch See Detail Blood Bank Wristband ID Yes Quality Measures Quality Measures sepsis Current suspected stage: ruled out Possible source: GI tract/intra- abdominal Blood cultures ordered: yes Antibiotic ordered: Yes Advance care planning discussed with:: patient Assessment & Plan Assessment Current Active Medications: Generic Name Dose Route Start Last Admin Trade Name Freq PRN Reason Stop Dose Admin Ascorbic Acid 500 mg 05/04/24 21:00 05/05/24 09:00 Ascorbic Acid 250 Mg Tablet PO 06/03/24 20:59 500 mg BID RICKIE Administration Docusate Sodium 100 mg 05/04/24 21:00 05/05/24 09:00 Docusate Sod 100 Mg Capsule PO 06/03/24 20:59 100 mg BID RICKIE Administration Protocol Fat Emulsion-[place] Oil/Soybean Oil 500 mls @ 32 mls/hr 05/01/24 18:00 05/03/24 18:37 Clinopid 20% Iv IV 05/29/24 17:59 32 mls/hr [email or web address] RICKIE Administration Cefoxitin Sodium 2 gm/ Sodium 50 mls @ 100 mls/hr 05/03/24 18:00 05/05/24 12:32 Chloride IV 05/10/24 17:59 100 mls/hr Q6HR RICKIE Administration Amino Acids 2,000 mls @ 100 mls/hr 05/05/24 08:20 05/05/24 08:59 Tpn-Outsourced IV 05/06/24 04:19 100 mls/hr .Q20H ONE Administration Potassium Chloride 40 meq/ 1,031 mls @ 100 mls/hr 05/06/24 04:20 Potassium Phosphate 21 mmol/ IV 05/06/24 14:38 Magnesium Sulfate 2 gm/ Amino .[id number] RICKIE Acids Metoclopramide HCl 10 mg 04/29/24 18:00 05/05/24 12:32 Metoclopramide Inj 5 Mg/Ml Vial 2 Ml IVP 05/29/24 17:59 10 mg Q6HR RICKIE Administration Protocol Morphine Sulfate 0 mg 05/05/24 12:30 05/05/24 12:32 Morphine Sulf 1 Mg/Ml [employer] Syringe 30 Ml GLASSWARE ENGRAVER 05/08/24 14:10 30 mg PER ORDER RICKIE Administration Protocol Ondansetron HCl 4 mg 04/29/24 04:25 05/02/24 19:37 Ondansetron Inj 2 Mg/Ml Inj 2 Ml IV 05/29/24 04:24 4 mg Q6H PRN Administration NAUSEA OR VOMITING Protocol Pantoprazole Sodium 40 mg 04/29/24 09:00 05/05/24 09:00 Pantoprazole Inj 40 Mg Vial IVP 05/29/24 08:59 40 mg QDAY RICKIE Administration Zinc Sulfate 220 mg 05/05/24 09:00 05/05/24 09:00 Zinc Sulfate 220 Mg Capsule PO 06/04/24 08:59 220 mg QDAY RICKIE Administration Plan Mr. Onel Yoder is a 68-year-old male with past medical history of PE on Eliquis, presented to ED on 04/28/2024 with chief complaints of abdominal pain and distention that progressively was getting worse x1 day. Patient himself is nonverbal at baseline and unable to communicate, but his wild animal caretaker at bedside was able to provide a history. Hospice Fellow stated that the pain started last night along with abdominal distension, accompanied by intractable nausea and vomiting with no visible blood. She also notes that he has been having frequent diarrhea for the last 2 months, and had two episodes of diarrhea yesterday. Hospice Fellow denies that patient has had any bloody bowel movements recently. #Sigmoid Abscess #Sigmoid Perforation Patient presented with chief complaints of abdominal pain, CT abdomen revealed: Area of narrowing in the distal sigmoid colon with dilatation of proximal large bowel loops, neoplastic or inflammatory etiology cannot be excluded. Recommend clinical correlation and followup with sigmoidoscopy. Mild wall thickening of pyloric antrum with mild surrounding fat stranding likely inflammatory. Recommend follow-up. Diffuse gallbladder wall thickening with mild pericholecystic edema and fat stranding, unchanged since the prior examination. Exploratory laparotomy with sigmoid colectomy and end colostomy performed demonstrating marked inflammatory reaction of sigmoid colon and abscess cavity of sigmoid colon with sigmoid perforation. - Dr. Hopper consulted, performed ex-lap 05/03 with no complications, appreciate further recommendations - GI Dr. Lopez consulted, appreciate recommendations - IV Cefoxitin started (Course: 05/03-05/10) - Currently receiving TPN - NG tube discontinued - Morphine 2mg IV q4h prn pain #Sepsis 2/2 GI abscess Patient met 2 out of 4 SIRS criteria - tachycardia and leukocytosis, along with known sigmoid abscess (removed in sigmoid colectomy 05/03) In ED patient was given IVF and Zosyn C. diff, urine, and blood cultures all resulted as negative - Lactic acid normalized - C. diff cultures negative - Initial blood cultures negative, repeat blood cultures ordered post-op - Monitor CBC/CMP daily #Normocytic Anemia With MCV in 80s, likely etiology being acute blood loss anemia secondary to patient's GI bleed. - Will continue to monitor Hgb daily - Transfuse if Hgb <7.0 #Pulmonary Embolism Patient was diagnosed with PE not certain when Patient is on Eliquis, however reported dark stool since starting the medication Today CT revealed right lower lobe pulmonary artery lobar and segmental thromboembolism - Holding heparin drip for at least 48 hours post-op (until at least 05/05/24) per Dr. Ruchi, will coordinate on when exactly to restart the drip #Electrolyte Imbalances Potassium initially 3.6 on arrival, decreased to 3.1 on morning of 04/29, increased over following days - Potassium stable today, no need for supplementation - Sodium lowered from 129 -> 124, possibly a consequence of patient's post-op pain - Urine osmolytes ordered to assess if patient is salt wasting through kidneys - Continue TPN which contains sodium, will consider hypertonic fluids in future if necessary to raise Na level #Rib Fractures Patient stated that he fell about 8 weeks ago from the tree, at that time CT chest revealed multiple rib fracture without flare chest with mild left hemithorax, patient was managed in [facility] - Morphine 2mg q4h prn pain Health maintenance: Disposition: Med surg Diet: TPN GI prophylaxis: Protonix 40mg IV qd DVT prophylaxis: SCDs Code: Full code Case disclosed with Attending Dr. Davis and my senior Dr. Levy. More Lora, PGY1 Attending Provider Attestation/Addendum I have examined the patient, reviewed labs and imaging findings, discussed the case with the resident(s), and reviewed entered orders. I agree with the plan of care as outlined in this note, with these additional summaries/recommendations: Patient seen at bedside. No acute overnight events. Patient is POD #3 status post exploratory laparotomy with sigmoid colectomy and end colostomy. Patient was found to have large bowel obstruction with perforated sigmoid and abscess formation. Patient reports his pain is currently uncontrolled on GLASSWARE ENGRAVER pump and we will go up on dose. Denies having BM. Continue n.p.o. and patient receiving TPN. Worsening leukocytosis today which is likely reactive. Continue mefoxin and if WBC count worsens or patient develops fever then we will broaden to IV Zosyn. Repeat blood cultures pending. Currently holding anticoagulation for history of large pulmonary embolism. Risks and benefits of holding anticoagulation were discussed with patient and he showed understanding. Hemoglobin down to 6.9 today and repeat 6.5. No blood noted in colostomy bag. We will order 2U PRBCS. Hyponatremia persists which is likely related to pain/SIADH. If no improvement then we will consult nephrology. Mild electrolyte abnormalities noted and replacement given. Repeat hematology and chemistry panel in AM. Dr. Davis
[2024-05-05 20:25] LABS: Hematocrit 29.7 % (41.0-53.0); Hemoglobin 9.7 g/dL (13.5-16.0)
--- NOTE | 2024-05-05 20:31 | XR_ITS ---
Examination: AP chest single view Technique one AP portable semiupright chest single view Exam date and time: May 05, [id number] hrs. Comparison April 28, 2024 Indications: Chest pain shortness of breath today. Findings: Normal heart size No pneumonia or pulmonary edema Multiple old appearing left-sided rib fractures but clinical correlation advised Right dual lumen central line tip SVC satisfactory position Impression: No pneumonia or pulmonary edema
--- NOTE | 2024-05-05 20:53 | PD.IMPROG ---
Documentation for date of: 05/05/24 Subjective Subjective Interval history: Complaining of incisional pain No activity in the colostomy Exam Vital Signs Temp Pulse Resp BP Pulse Ox O2 Del Method O2 Flow Rate 97.5 F 96 18 131/69 H 94 L Room Air 0 05/05/24 20:00 05/05/24 20:00 05/05/24 20:00 05/05/24 20:00 05/05/24 20:00 05/05/24 20:00 05/05/24 20:00 Objective Labs 05/05/24 20:10 05/05/24 05:10 Labs: Laboratory Results - last 24 hr 05/05/24 05/05/24 05/05/24 05:10 05:42 07:25 WBC 17.5 H RBC 2.57 L Hgb 6.9 L* D 6.5 L* Hct 21.7 L* 20.8 L* MCV 84 MCH 26.8 MCHC 31.8 RDW Std Deviation 58.4 H Plt Count 238 D Neut % (Auto) 67 Lymph % (Auto) 12 [place] % (Auto) 9 Eos % (Auto) 3 Baso % (Auto) 0 Neut # (Auto) 11.8 H Lymph # (Auto) 2.1 [place] # (Auto) 1.5 H Eos # (Auto) 0.5 Baso # (Auto) 0.1 Immature Gran # (Auto) 1.48 H Absolute Nucleated RBC 0.14 H Immature Gran % 9 H Nucleated RBC % 1 H Sodium 125 L Potassium 3.3 L D Chloride 94 L Carbon Dioxide 24.7 Anion Gap 6 L BUN 14 Creatinine 0.6 Estim Creat Clear Calc 106.3 eGFR > 60 BUN/Creatinine Ratio 23 H Glucose 113 H Calculated Osmolality 253 L Calcium 7.8 L Corrected Calcium 9.0 Phosphorus 1.9 L Magnesium 1.9 Total Bilirubin 0.4 AST 12 ALT 8 L Alkaline Phosphatase 51 Total Protein 4.8 L Albumin 2.5 L Globulin 2.3 Albumin/Globulin Ratio 1.1 L Ur Random Creatinine 46 Ur Random Sodium 16.4 L Blood Type A Negative Antibody Screen NEGATIVE Crossmatch See Detail Blood Bank Wristband ID Yes 05/05/24 20:10 WBC RBC Hgb 9.7 L D Hct 29.7 L MCV MCH MCHC RDW Std Deviation Plt Count Neut % (Auto) Lymph % (Auto) [place] % (Auto) Eos % (Auto) Baso % (Auto) Neut # (Auto) Lymph # (Auto) [place] # (Auto) Eos # (Auto) Baso # (Auto) Immature Gran # (Auto) Absolute Nucleated RBC Immature Gran % Nucleated RBC % Sodium Potassium Chloride Carbon Dioxide Anion Gap BUN Creatinine Estim Creat Clear Calc eGFR BUN/Creatinine Ratio Glucose Calculated Osmolality Calcium Corrected Calcium Phosphorus Magnesium Total Bilirubin AST ALT Alkaline Phosphatase Total Protein Albumin Globulin Albumin/Globulin Ratio Ur Random Creatinine Ur Random Sodium Blood Type Antibody Screen Crossmatch Blood Bank Wristband ID Impressions Impression: # Status post sigmoid colectomy and diverting colostomy Continue current management Assessment & Plan A&P Narrative # Abnormal CT scan of the abdomen and pelvis showing focal narrowing of the colon in the region of sigmoid colon Since patient had a bowel movement Hopefully the patient in due course of time can take the GoLytely or it can be given through the NGT Although patient has not been able to tolerate either I will discuss the case with Dr. Hopper tomorrow morning Since the patient currently fully prepped with GoLytely He may need a diverting colostomy Thank you very much for the opportunity to participate in the care of this patient Time Spent With Patient Time: Total time spent is greater than 50% in coordination of care (as documented) at patient's floor/unit and/or counseling patient:
[2024-05-06] VITALS (10 sets, daily range): BP systolic 112–141; BP diastolic 61–91; PULSE 78–101; RESP 17–98; TEMP 35.9–36.4; O2SAT 93–95; BMI 29.5; BMI 13.0
[2024-05-06] MEDS: MORPHINE SULF 1 MG/ML PCA SYRINGE 30 ML PCA ×2 (00:49→22:17)
[2024-05-06] MEDS: [UNRECOGNIZED DRUG - OTHER] IV (04:55)
[2024-05-06] MEDS: POT CHL ADDITIVE IV ×2 (04:55→15:48)
[2024-05-06] MEDS: POTASSIUM PHOS IV (04:55)
[2024-05-06] MEDS: MAGNESIUM SULF IV (04:55)
[2024-05-06] MEDS: CEFOXITIN 2 GM in SODIUM CHLORIDE 0.9% (P) 50 ML IV ×3 (05:19→17:57)
[2024-05-06] MEDS: METOCLOPRAMIDE INJ 5 MG/ML VIAL 2 ML 10 MG IVP ×2 (05:23→11:54)
[2024-05-06 05:46] LABS: Basophils # (Auto) 0.1 Thou/mm3 (0.0-0.2); Basophils % (Auto) 1 % (0-2.5); Eosinophils # (Auto) 0.4 Thou/mm3 (0.0-0.5); Eosinophils % (Auto) 3 % (0-10); Hematocrit 28.1 % (41.0-53.0); Hemoglobin 9.2 g/dL (13.5-16.0); Immature Granulocytes % (Auto) 9 % (0-0); Immature Granulocytes Auto 1.17 Thou/mm3 (0.00-0.00); Lymphocytes # (Auto) 1.9 Thou/mm3 (1.0-4.8); Lymphocytes % (Auto) 15 % (10-50); Mean Corpuscular HGB Conc 32.7 g/dl (31.0-37.0); Mean Corpuscular Volume 86 fL (80-100); Monocytes % (Auto) 8 % (0-12); Neutrophils # (Auto) 8.7 Thou/mm3 (1.8-7.7); Neutrophils % (Auto) 66 % (37-80); Nucleated Red Blood Cell # 0.14 Thou/mm3 (0.00-0.00); Nucleated Red Blood Cell % 1 /100 WBC (0); Platelet Count 217 Thou/mm3 (140-440); RDW Standard Deviation 55.1 fL (35.1-43.9); Red Blood Count 3.28 Miln/mm3 (4.50-5.90); White Blood Count 13.2 Thou/mm3 (3.8-10.6)
[2024-05-06 06:41] LABS: Alanine Aminotransferase 11 U/L (10-49); Albumin, Serum 2.6 gm/dL (3.4-4.8); Albumin/Globulin Ratio 1.1 (1.2-2.2); Alkaline Phosphatase 66 U/L (46-116); Anion Gap 8 (7-16); Aspartate Amino Transferase 21 U/L (0-34); BUN/Creatinine Ratio 20 Ratio (12-20); Bilirubin,Total 0.5 mg/dL (0.3-1.2); Blood Urea Nitrogen 10 mg/dL (9-23); Calcium (Corrected) 9.1 mg/dL (8.5-10.1); Carbon Dioxide 25.5 mMol/L (20.0-31.0); Chloride 96 mMol/L (98-107); Creatinine (Component) 0.5 mg/dL (0.6-1.3); Estimated Creatinine Clearance 143.1 mL/min (>60); Globulin 2.3 gm/dL (2.3-3.5); Glucose 103 mg/dL (74-106); Osmolality,Calculated 257 (275-295); Potassium 3.2 mMol/L (3.4-5.1); Sodium 129 mMol/L (136-145); Total Protein 4.9 gm/dL (5.7-8.2); eGFR > 60 See Note
[2024-05-06] MEDS: ZINC SULFATE 220 MG CAPSULE PO (09:01)
[2024-05-06] MEDS: DOCUSATE SOD 100 MG CAPSULE PO ×2 (09:01→21:35)
[2024-05-06] MEDS: PANTOPRAZOLE INJ 40 MG VIAL IVP (09:05)
[2024-05-06] MEDS: POTASSIUM CHL 10 mEq IVPB 10 MEQ/100 ML BAG 75 MEQ IV (10:06)
[2024-05-06 10:37] LABS: Path Review Blood Smear Sent to Pathologist
--- NOTE | 2024-05-06 10:39 | CHAP ---
Visited briefly with patient and had prayer.
[2024-05-06] MEDS: POTASSIUM CHL 10 mEq IVPB 10 MEQ/100 ML BAG 100 MEQ IV ×3 (11:51→14:04)
--- NOTE | 2024-05-06 12:01 | PD.SURPROG ---
Documentation for date of: 05/06/24 Subjective Subjective Narrative: Patient is seen and examined. His pain is improving. He denies nausea or vomiting. Exam Vital Signs Temp Pulse Resp BP Pulse Ox O2 Del Method O2 Flow Rate 97.2 F 88 18 141/73 H 93 L Room Air 0 05/06/24 08:00 05/06/24 08:00 05/06/24 08:00 05/06/24 08:00 05/06/24 08:00 05/06/24 08:00 05/06/24 04:00 Constitutional Constitutional: no acute distress Routine Abdominal Exam Comments: Abdomen is soft, less distended than yesterday. Bowel sounds are present. Colostomy is pink, patent and present with minimal air in colostomy bag Assessment & Plan Assessment Additional comments: Postop day #3 status post sigmoid colectomy with colostomy Plan Patient received blood transfusions yesterday. Will start him on clear liquids. Continue IV antibiotics. Procedures Procedures Exploratory laparotomy, sigmoid colectomy with end colostomy
[2024-05-06] MEDS: bisacodyL 5 MG TABEC 10 MG PO (13:11)
[2024-05-06] MEDS: AMINO ACID IV (15:48)
[2024-05-06] MEDS: [UNRECOGNIZED DRUG - OTHER] IV (15:48)
--- NOTE | 2024-05-06 16:05 | ESPR_ITS ---
Documentation for date of: 05/06/24 Subjective Subjective Interval history: Mr. Onel Yoder is a 68-year-old male with past medical history of PE on Eliquis, presented to ED on 04/28/2024 with chief complaints of abdominal pain and distention that progressively was getting worse x1 day. He stated that the pain started last night along with abdominal distension, accompanied by intractable nausea and vomiting with no visible blood. He also notes that he has been having frequent diarrhea for the last 2 months, and had two episodes of diarrhea yesterday. He also states that over the last week, some of his bowel movements have been dark black, and some have been bright red, and that this may be associated with his known chronic hemorrhoids. Approximately 8 weeks ago, patient fell from a tree causing multiple left-sided rib fractures, for which he was treated at [facility] and discharged back to [facility] for rehabilitation. Had a presentation to [facility] ED on 04/19/2024 for chest pain, found on CT to be pulmonary embolism with flail chest and acute acalculous cholecystitis. He was transferred to [facility] again and had an endoscopy performed but no colonoscopy, as pt was not able to complete bowel prep. Findings from EGD unknown per patient. Patient was placed on Eliquis for his pulmonary embolism at this time. On arrival to ED, patient was tachycardic at 121, WBC 23.6, Hgb 12.9, Hct 41.0, platelets 513, lactic 2.6, glucose 182. CT abdomen demonstrated an area of narrowing in the distal sigmoid colon with dilatation of proximal large bowel loops, neoplastic or inflammatory etiology cannot be excluded. Sigmoidoscopy recommended at that time. CT abdomen also positive for right lower lobe pulmonary artery lobar and segmental thromboembolism, mild wall thickening of pyloric antrum with mild surrounding fat stranding likely inflammatory, and diffuse gallbladder wall thickening with mild pericholecystic edema and fat stranding. In ED patient received morphine 4 mg, Zosyn, 1L of normal saline. Patient was admitted for abdominal pain and distention secondary due to SBO, NG tube was placed, Dr Hopper was contacted in ED and agreed to be consulted. Patient met 2/4 sepsis criteria, and with a possible infectious source in the abdomen, was suspected for sepsis and started on Ciprofloxacin and Flagyl. C. diff, urine, and blood cultures ordered. 04/29: This morning, patient's clinical status remains unchanged. He is still nonverbal and appears visually uncomfortable during palpation of abdomen, but unable to communicate any specific point of tenderness. Dr. Hopper recommends starting patient on TPN as he will not be able to undergo colonoscopy for several days, and will not be able to go to the operating room for several days after that. Appreciate further recommendations. 04/30: No acute overnight events. Clamped NG tube and started GoLytely at a slow rate with plans to perform colonoscopy tomorrow. Patient states that his pain is still present but controlled with Toradol. Started TPN today for nutrition. 05/01: No acute overnight events. Patient drank approximately half of his GoLytely, will continue slow administration. Dr. Lopez to evaluate later this afternoon. Patient feels unchanged since yesterday, still feeling his abdominal distension and diffuse abdominal pain controlled with morphine 2mg q4h prn. Tachycardia improved today, Hgb dropped over last 24h from 9.6 -> 8.6. Will monitor in AM and consider transfusing if patient below 8.0. Urine and blood cultures negative. 05/02: No acute overnight events. Dr. Lopez consulted, advised patient to continue taking GoLytely in preparation of either colonoscopy or operative intervention, appreciate further recommendations. Patient continuing to receive TPN with IV ciprofloxacin and flagyl, heparin drip for pulmonary embolism. Per patient's nurse, difficult IV access this morning as the access already in place unreliable, and pt refused further attempts for additional access. He was amenable for PICC line placement for continuation of IV medications, which was performed today without complication. Patient states that today he largely feels the same with slight relief in abdominal pain, and states that he has had two bowel movements overnight. 05/03: Last night, patient failed his GoLytely regimen as he was experiencing increased abdominal distension and nausea despite having several bowel movements over the last [address] Lopez and Dr. Hopper instead opted for surgical intervention with exploratory laparotomy with sigmoid colectomy and end colostomy in the operating room, which was performed with no complications. Findings positive for marked inflammatory reaction of sigmoid colon and abscess cavity of sigmoid colon with sigmoid perforation. Per surgery will hold patient's heparin drip for at least 48 hours (until at least 05/05/24). Hgb 7.6, plan for recheck in the afternoon and will transfuse if <7.0. 05/04: No overnight events to note. Switched patient's IV Zosyn to IV Cefoxitin x 7 days, and morphine for post-op pain management. Holding heparin drip as PE treatment at least until tomorrow (48 hours post-op), will touch base with Dr. Hopper on when exactly to restart the drip. Patient complains of a sore belly pain since the surgery, stating that it is a 6/10 constant abdominal pain. WBC elevated from 7.7 -> 18.5, and with patient's tachycardia in the 120s since his surgery, he now meets 2/4 SIRS criteria. Re-ordered blood cultures to assess for possibility of new bacteremia since surgery. Hyponatremia worsened from 129 -> 124, ordered urine osmolytes to evaluate for salt wasting. NG tube clamped, continuining TPN. 05/05: Patient was seen and examined at bedside. Overnight, hemoglobin 6.9 with repeat H&H showing no change. Underwent 2 units PRBC transfusion. Posttransfusion H&H pending. Will continue to monitor. Patient today complains of some abdominal pain at his surgical area. Colostomy bag showed minimal dark liquid stool. Denies any fever. Per Dr. Hopper, [employer] pump changed to 1 mg morphine every 10 minutes. Will also repeat chest x-ray as patient has been complaining of some chest pain and increased shortness of breath. Physical therapy ordered to assist with ambulation and strengthening. Encouraged to use spirometry. WBC slight downtrend 17.5, hyponatremia 125, hypokalemia 3.3, hypophos 1.9. Repleated with 15mmol KPhos. 05/06: No acute overnight events. Patient stating that pain still present but improving. Per Dr. Hopper, will continue to hold off on heparin drip for treatment of his pulmonary embolism until his colostomy starts to function. Per security associate, up until this point patient has been on PPN, today will transition to TPN via his PICC line. Exam Vital Signs Temp Pulse Resp BP Pulse Ox O2 Del Method O2 Flow Rate 96.8 F 97 17 135/76 H 95 Room Air 0 05/06/24 12:00 05/06/24 12:00 05/06/24 12:00 05/06/24 12:00 05/06/24 12:00 05/06/24 12:00 05/06/24 04:00 Narrative Exam Gen: Awake, oriented x3, responsive to questions, in no acute distress HEENT: NCAT, PERRLA, EOMI, MMM, anicteric conjunctivae. CVS: normal S1 and S2. RRR. No M/R/G. Resp: CTA B/L. No rhonchi, rales, crackles or wheezing. Abd: Firm, diffusely tender to palpation, distended but improved since pre-op, ostomy bag in place. BS+ in all 4 quadrants. MSK: Good ROM in BUE & BLE. No edema or rash. Neuro: Moves all extremities spontaneously Psych: appropriate mood and affect. Objective Labs 05/06/24 05:06 05/06/24 05:06 Labs: Laboratory Results - last 24 hr 05/05/24 05/05/24 05/06/24 07:25 20:10 05:06 WBC 13.2 H RBC 3.28 L Hgb 9.7 L D 9.2 L Hct 29.7 L 28.1 L MCV 86 MCH 28.0 MCHC 32.7 RDW Std Deviation 55.1 H Plt Count 217 Neut % (Auto) 66 Lymph % (Auto) 15 [place] % (Auto) 8 Eos % (Auto) 3 Baso % (Auto) 1 Neut # (Auto) 8.7 H Lymph # (Auto) 1.9 [place] # (Auto) 1.0 H Eos # (Auto) 0.4 Baso # (Auto) 0.1 Immature Gran # (Auto) 1.17 H Absolute Nucleated RBC 0.14 H Immature Gran % 9 H Nucleated RBC % 1 H Smear Path Review Sent to Pathologist Sodium 129 L Potassium 3.2 L Chloride 96 L Carbon Dioxide 25.5 Anion Gap 8 BUN 10 Creatinine 0.5 L Estim Creat Clear Calc 143.1 eGFR > 60 BUN/Creatinine Ratio 20 Glucose 103 Calculated Osmolality 257 L Calcium 8.0 L Corrected Calcium 9.1 Total Bilirubin 0.5 AST 21 ALT 11 Alkaline Phosphatase 66 D Total Protein 4.9 L Albumin 2.6 L Globulin 2.3 Albumin/Globulin Ratio 1.1 L Crossmatch See Detail Quality Measures Quality Measures sepsis Current suspected stage: ruled out Possible source: GI tract/intra- abdominal Blood cultures ordered: yes Antibiotic ordered: Yes Advance care planning discussed with:: patient Assessment & Plan Assessment Current Active Medications: Generic Name Dose Route Start Last Admin Trade Name Maddy PRN Reason Stop Dose Admin Ascorbic Acid 500 mg 05/04/24 21:00 05/06/24 09:20 Ascorbic Acid 250 Mg Tablet PO 06/03/24 20:59 Not Given BID RICKIE Docusate Sodium 100 mg 05/04/24 21:00 05/06/24 09:01 Docusate Sod 100 Mg Capsule PO 06/03/24 20:59 100 mg BID RICKIE Administration Protocol Fat Emulsion-[place] Oil/Soybean Oil 500 mls @ 32 mls/hr 05/01/24 18:00 05/03/24 18:37 Clinopid 20% Iv IV 05/29/24 17:59 32 mls/hr [email or web address] RICKIE Administration Cefoxitin Sodium 2 gm/ Sodium 50 mls @ 100 mls/hr 05/03/24 18:00 05/06/24 11:43 Chloride IV 05/10/24 17:59 100 mls/hr Q6HR RICKIE Administration Potassium Chloride 40 meq/ 2,020 mls @ 35 mls/hr 05/06/24 14:30 05/06/24 15:48 Amino Acids/Electrolytes IV 05/09/24 00:12 35 mls/hr [id number] ONE Administration Morphine Sulfate 0 mg 05/05/24 12:30 05/06/24 00:49 Morphine Sulf 1 Mg/Ml Hot Patcher Syringe 30 Ml [employer] 05/08/24 14:10 30 mg PER ORDER RICKIE Administration Protocol Ondansetron HCl 4 mg 04/29/24 04:25 05/02/24 19:37 Ondansetron Inj 2 Mg/Ml Inj 2 Ml IV 05/29/24 04:24 4 mg Q6H PRN Administration NAUSEA OR VOMITING Protocol Pantoprazole Sodium 40 mg 04/29/24 09:00 05/06/24 09:05 Pantoprazole Inj 40 Mg Vial IVP 05/29/24 08:59 40 mg QDAY RICKIE Administration Zinc Sulfate 220 mg 05/05/24 09:00 05/06/24 09:01 Zinc Sulfate 220 Mg Capsule PO 06/04/24 08:59 220 mg QDAY RICKIE Administration Plan Mr. Onel Yoder is a 68-year-old male with past medical history of PE on Eliquis, presented to ED on 04/28/2024 with chief complaints of abdominal pain and distention that progressively was getting worse x1 day. Patient himself is nonverbal at baseline and unable to communicate, but his aerial survey technician at bedside was able to provide a history. Staple Cutter stated that the pain started last night along with abdominal distension, accompanied by intractable nausea and vomiting with no visible blood. She also notes that he has been having frequent diarrhea for the last 2 months, and had two episodes of diarrhea yesterday. Staple Cutter denies that patient has had any bloody bowel movements recently. #Sigmoid Abscess #Sigmoid Perforation Patient presented with chief complaints of abdominal pain, CT abdomen revealed: Area of narrowing in the distal sigmoid colon with dilatation of proximal large bowel loops, neoplastic or inflammatory etiology cannot be excluded. Recommend clinical correlation and followup with sigmoidoscopy. Mild wall thickening of pyloric antrum with mild surrounding fat stranding likely inflammatory. Recommend follow-up. Diffuse gallbladder wall thickening with mild pericholecystic edema and fat stranding, unchanged since the prior examination. Exploratory laparotomy with sigmoid colectomy and end colostomy performed demonstrating marked inflammatory reaction of sigmoid colon and abscess cavity of sigmoid colon with sigmoid perforation. - Dr. Hopper consulted, performed ex-lap 05/03 with no complications, appreciate further recommendations - GI Dr. Lopez consulted, appreciate recommendations - IV Cefoxitin started (Course: 05/03-05/10) - Currently receiving TPN, triglycerides ordered for AM - NG tube discontinued - Morphine 2mg IV q4h prn pain #Sepsis ruled out Patient met 2 out of 4 SIRS criteria - tachycardia and leukocytosis, along with known sigmoid abscess (removed in sigmoid colectomy 05/03) In ED patient was given IVF and Zosyn C. diff, urine, and blood cultures all resulted as negative - Lactic acid normalized - C. diff cultures negative - Blood cultures negative x2 - Monitor CBC/CMP daily #Normocytic Anemia With MCV in 80s, likely etiology being acute blood loss anemia secondary to patient's GI bleed. - Will continue to monitor Hgb daily - Transfuse if Hgb <7.0 - Hgb jyoti from 6.5 -> 9.2 after transfusing 2 units PRBCs on 05/05 #Pulmonary Embolism Patient was diagnosed with PE not certain when Patient is on Eliquis, however reported dark stool since starting the medication CT revealed right lower lobe pulmonary artery lobar and segmental thromboembolism - Holding heparin drip until colostomy site begins to work per Dr. Hopper #Electrolyte Imbalances Potassium initially 3.6 on arrival, decreased to 3.1 on morning of 04/29, increased over following days - Potassium low today at 3.2, supplemented with 40mEq IV KCl - Sodium jyoti from 125 -> 129, improving - Continue TPN which contains sodium #Rib Fractures Patient stated that he fell about 8 weeks ago from the tree, at that time CT chest revealed multiple rib fracture without flare chest with mild left hemithorax, patient was managed in [facility] - Morphine 2mg q4h prn pain Health maintenance: Disposition: Med surg Diet: TPN GI prophylaxis: Protonix 40mg IV qd DVT prophylaxis: SCDs Code: Full code Case disclosed with Attending Dr. Sims and my senior Dr. Magaña PGY3. Benitez Lyn, PGY1 Attending Provider Attestation/Addendum In short, patient is a 68-year-old male with significant past medical history of pulmonary embolism presently on Eliquis, who presented to the ED on 04/28 for complaints of abdominal pain and distention which was progressively worsening 1 day prior to admission. Patient subsequently admitted for suspected SBO. Patient subsequently underwent exploratory laparotomy with sigmoid colectomy and end colostomy on 05/03 secondary to large bowel obstruction and a likely perforated sigmoid diverticulitis with a contained abscess. INTERVAL HX: 05/06: Vital signs stable, patient afebrile overnight, patient presently on room air, SpO2 95%. Significant labs include a downtrending WBC of 13.2 today, hemoglobin 9.2, slight decrease from yesterday, sodium 129 which is up trended from yesterday at 125, potassium 3.2, normal renal function and an albumin low at 2.6. ASSESSMENT: #Sigmoid colon perforation and abscess, status post sigmoid colectomy and end colostomy on 05/03 #Normocytic anemia, possible component of blood loss secondary to surgery 1. General Surgery, Dr. Hopper consulted, appreciate recommendations 2. Gastroenterology consulted, appreciate recommendations 3. Per surgery recommendations, start IV cefoxitin 4. Continue PPN 5. Pain control 6. Will monitor hemoglobin closely and transfuse for hemoglobin less than 7 7. Replete electrolytes as needed #Pulmonary embolism 1. Will start heparin drip once patient starts having BMs and transition back to Eliquis once going home. Chronic Conditions: #Rib fracture, approximately 8 weeks old per patient, patient initially treated at [facility] #HLD #GERD 1. Will reconcile and continue home meds as appropriate Antimicrobials: IV cefoxitin start: 05/06 DISPO: Pending specialist recommendations and clinical improvement, patient will need home health for physical therapy at that time
[2024-05-06] MEDS: FAT EMUL/OLIVE/SOY/PHOS 20% IV 500 ML 32 ML IV (17:57)
--- NOTE | 2024-05-06 19:31 | ESPR_ITS ---
Documentation for date of: 05/06/24 Subjective Subjective Interval history: Patient examined No activity in the colostomy bag Stoma is somewhat edematous but not cyanotic and looking healthy Exam Vital Signs Temp Pulse Resp BP Pulse Ox O2 Del Method O2 Flow Rate 97.5 F 101 H 24 H 133/91 H 95 Room Air 0 05/06/24 16:00 05/06/24 16:00 05/06/24 17:20 05/06/24 16:00 05/06/24 16:00 05/06/24 16:00 05/06/24 04:00 Objective Labs 05/06/24 05:06 05/06/24 05:06 Labs: Laboratory Results - last 24 hr 05/05/24 05/05/24 05/06/24 07:25 20:10 05:06 WBC 13.2 H RBC 3.28 L Hgb 9.7 L D 9.2 L Hct 29.7 L 28.1 L MCV 86 MCH 28.0 MCHC 32.7 RDW Std Deviation 55.1 H Plt Count 217 Neut % (Auto) 66 Lymph % (Auto) 15 [place] % (Auto) 8 Eos % (Auto) 3 Baso % (Auto) 1 Neut # (Auto) 8.7 H Lymph # (Auto) 1.9 [place] # (Auto) 1.0 H Eos # (Auto) 0.4 Baso # (Auto) 0.1 Immature Gran # (Auto) 1.17 H Absolute Nucleated RBC 0.14 H Immature Gran % 9 H Nucleated RBC % 1 H Smear Path Review Sent to Pathologist Sodium 129 L Potassium 3.2 L Chloride 96 L Carbon Dioxide 25.5 Anion Gap 8 BUN 10 Creatinine 0.5 L Estim Creat Clear Calc 143.1 eGFR > 60 BUN/Creatinine Ratio 20 Glucose 103 Calculated Osmolality 257 L Calcium 8.0 L Corrected Calcium 9.1 Total Bilirubin 0.5 AST 21 ALT 11 Alkaline Phosphatase 66 D Total Protein 4.9 L Albumin 2.6 L Globulin 2.3 Albumin/Globulin Ratio 1.1 L Crossmatch See Detail Impressions Impression: # Status post sigmoid colectomy with diverting colostomy Continue current management Assessment & Plan A&P Narrative # Abnormal CT scan of the abdomen and pelvis showing focal narrowing of the colon in the region of sigmoid colon Since patient had a bowel movement Hopefully the patient in due course of time can take the GoLytely or it can be given through the NGT Although patient has not been able to tolerate either I will discuss the case with Dr. Hopper tomorrow morning Since the patient currently fully prepped with GoLytely He may need a diverting colostomy Thank you very much for the opportunity to participate in the care of this patient Time Spent With Patient Time: Total time spent is greater than 50% in coordination of care (as documented) at patient's floor/unit and/or counseling patient:
[2024-05-06] MEDS: ASCORBIC ACID 250 MG TABLET 500 MG PO (21:35)
[2024-05-06] MEDS: ONDANSETRON INJ 2 MG/ML INJ 2 ML 4 MG IV (23:21)
[2024-05-07] VITALS (10 sets, daily range): BP systolic 111–141; BP diastolic 69–85; PULSE 86–105; RESP 17–20; TEMP 36.1–36.6; O2SAT 92–97; BMI 29.3; BMI 13.0
[2024-05-07] MEDS: CEFOXITIN 2 GM in SODIUM CHLORIDE 0.9% (P) 50 ML IV ×2 (00:08→05:29)
[2024-05-07 06:33] LABS: Anion Gap 5 (7-16); BUN/Creatinine Ratio 13 Ratio (12-20); Blood Urea Nitrogen 8 mg/dL (9-23); Carbon Dioxide 26.8 mMol/L (20.0-31.0); Chloride 97 mMol/L (98-107); Creatinine (Component) 0.6 mg/dL (0.6-1.3); Estimated Creatinine Clearance 119.1 mL/min (>60); Glucose 129 mg/dL (74-106); Osmolality,Calculated 259 (275-295); Potassium 3.9 mMol/L (3.4-5.1); Sodium 129 mMol/L (136-145); Triglycerides 295 mg/dL (30-150); eGFR > 60 See Note
--- NOTE | 2024-05-07 06:50 | PD.SURPROG ---
Documentation for date of: 05/07/24 Subjective Subjective Narrative: Patient is seen and examined. He is resting comfortably. His pain is improving. He is tolerating clear liquids without nausea or vomiting Exam Vital Signs Temp Pulse Resp BP Pulse Ox O2 Del Method O2 Flow Rate 96.9 F 92 17 129/79 94 L Room Air 0 05/07/24 04:00 05/07/24 04:00 05/07/24 05:31 05/07/24 04:00 05/07/24 04:00 05/07/24 04:00 05/06/24 04:00 Constitutional Constitutional: no acute distress Routine Abdominal Exam Abdominal: Present soft Comments: Abdomen is soft and less distended. He has bowel sounds. Colostomy is pink, patent and present with gas Assessment & Plan Assessment Additional comments: Postop day #4 status post sigmoid colectomy with colostomy Plan Will keep patient on liquid diet until stool in colostomy bag. Patient is advised to increase ambulation and use incentive spirometer. Procedures Procedures Exploratory laparotomy, sigmoid colectomy with end colostomy
--- NOTE | 2024-05-07 09:01 | CHAP ---
Visited with patient giving encouragement and prayer.
[2024-05-07] MEDS: DOCUSATE SOD 100 MG CAPSULE PO ×2 (09:26→21:17)
[2024-05-07] MEDS: PANTOPRAZOLE INJ 40 MG VIAL IVP (09:31)
[2024-05-07 09:55] LABS: Basophils # (Auto) 0.1 Thou/mm3 (0.0-0.2); Basophils % (Auto) 1 % (0-2.5); Eosinophils # (Auto) 0.3 Thou/mm3 (0.0-0.5); Eosinophils % (Auto) 3 % (0-10); Hemoglobin 9.4 g/dL (13.5-16.0); Immature Granulocytes % (Auto) 7 % (0-0); Immature Granulocytes Auto 0.76 Thou/mm3 (0.00-0.00); Lymphocytes # (Auto) 1.4 Thou/mm3 (1.0-4.8); Lymphocytes % (Auto) 13 % (10-50); Mean Corpuscular HGB Conc 32.4 g/dl (31.0-37.0); Mean Corpuscular Hemoglobin 27.8 pg (25.0-35.0); Mean Corpuscular Volume 86 fL (80-100); Monocytes # (Auto) 0.8 Thou/mm3 (0.0-0.8); Monocytes % (Auto) 7 % (0-12); Neutrophils # (Auto) 7.3 Thou/mm3 (1.8-7.7); Neutrophils % (Auto) 69 % (37-80); Nucleated Red Blood Cell # 0.05 Thou/mm3 (0.00-0.00); Nucleated Red Blood Cell % 1 /100 WBC (0); Platelet Count 231 Thou/mm3 (140-440); RDW Standard Deviation 56.6 fL (35.1-43.9); Red Blood Count 3.38 Miln/mm3 (4.50-5.90); White Blood Count 10.6 Thou/mm3 (3.8-10.6)
[2024-05-07] MEDS: SODIUM CHLORIDE 0.9% IV ×3 (13:18→23:04)
[2024-05-07] MEDS: CEFOXITIN IV ×3 (13:18→23:04)
--- NOTE | 2024-05-07 14:58 | ESPR_ITS ---
<Statement entered by Anita Levy MD - 05/07/24 16:56> I discussed with and supervised the international relations teacher physician who took care of this patient. I personally saw and examined the patient and discussed the assessment and plan with the entire medicine team, including my attending , I agree with most of the assessment and plan as documented below Anita Levy M.D. PGY-2 Documentation for date of: 05/07/24 Subjective Subjective Interval history: Mr. Onel Yoder is a 68-year-old male with past medical history of PE on Eliquis, presented to ED on 04/28/2024 with chief complaints of abdominal pain and distention that progressively was getting worse x1 day. He stated that the pain started last night along with abdominal distension, accompanied by intractable nausea and vomiting with no visible blood. He also notes that he has been having frequent diarrhea for the last 2 months, and had two episodes of diarrhea yesterday. He also states that over the last week, some of his bowel movements have been dark black, and some have been bright red, and that this may be associated with his known chronic hemorrhoids. Approximately 8 weeks ago, patient fell from a tree causing multiple left-sided rib fractures, for which he was treated at [facility] and discharged back to [facility] for rehabilitation. Had a presentation to [facility] ED on 04/19/2024 for chest pain, found on CT to be pulmonary embolism with flail chest and acute acalculous cholecystitis. He was transferred to [facility] again and had an endoscopy performed but no colonoscopy, as pt was not able to complete bowel prep. Findings from EGD unknown per patient. Patient was placed on Eliquis for his pulmonary embolism at this time. On arrival to ED, patient was tachycardic at 121, WBC 23.6, Hgb 12.9, Hct 41.0, platelets 513, lactic 2.6, glucose 182. CT abdomen demonstrated an area of narrowing in the distal sigmoid colon with dilatation of proximal large bowel loops, neoplastic or inflammatory etiology cannot be excluded. Sigmoidoscopy recommended at that time. CT abdomen also positive for right lower lobe pulmonary artery lobar and segmental thromboembolism, mild wall thickening of pyloric antrum with mild surrounding fat stranding likely inflammatory, and diffuse gallbladder wall thickening with mild pericholecystic edema and fat stranding. In ED patient received morphine 4 mg, Zosyn, 1L of normal saline. Patient was admitted for abdominal pain and distention secondary due to SBO, NG tube was placed, Dr Hopper was contacted in ED and agreed to be consulted. Patient met 2/4 sepsis criteria, and with a possible infectious source in the abdomen, was suspected for sepsis and started on Ciprofloxacin and Flagyl. C. diff, urine, and blood cultures ordered. 04/29: This morning, patient's clinical status remains unchanged. He is still nonverbal and appears visually uncomfortable during palpation of abdomen, but unable to communicate any specific point of tenderness. Dr. Hopper recommends starting patient on TPN as he will not be able to undergo colonoscopy for several days, and will not be able to go to the operating room for several days after that. Appreciate further recommendations. 04/30: No acute overnight events. Clamped NG tube and started GoLytely at a slow rate with plans to perform colonoscopy tomorrow. Patient states that his pain is still present but controlled with Toradol. Started TPN today for nutrition. 05/01: No acute overnight events. Patient drank approximately half of his GoLytely, will continue slow administration. Dr. Lopez to evaluate later this afternoon. Patient feels unchanged since yesterday, still feeling his abdominal distension and diffuse abdominal pain controlled with morphine 2mg q4h prn. Tachycardia improved today, Hgb dropped over last 24h from 9.6 -> 8.6. Will monitor in AM and consider transfusing if patient below 8.0. Urine and blood cultures negative. 05/02: No acute overnight events. Dr. Lopez consulted, advised patient to continue taking GoLytely in preparation of either colonoscopy or operative intervention, appreciate further recommendations. Patient continuing to receive TPN with IV ciprofloxacin and flagyl, heparin drip for pulmonary embolism. Per patient's nurse, difficult IV access this morning as the access already in place unreliable, and pt refused further attempts for additional access. He was amenable for PICC line placement for continuation of IV medications, which was performed today without complication. Patient states that today he largely feels the same with slight relief in abdominal pain, and states that he has had two bowel movements overnight. 05/03: Last night, patient failed his GoLytely regimen as he was experiencing increased abdominal distension and nausea despite having several bowel movements over the last [address] Lopez and Dr. Hopper instead opted for surgical intervention with exploratory laparotomy with sigmoid colectomy and end colostomy in the operating room, which was performed with no complications. Findings positive for marked inflammatory reaction of sigmoid colon and abscess cavity of sigmoid colon with sigmoid perforation. Per surgery will hold patient's heparin drip for at least 48 hours (until at least 05/05/24). Hgb 7.6, plan for recheck in the afternoon and will transfuse if <7.0. 05/04: No overnight events to note. Switched patient's IV Zosyn to IV Cefoxitin x 7 days, and morphine for post-op pain management. Holding heparin drip as PE treatment at least until tomorrow (48 hours post-op), will touch base with Dr. Hopper on when exactly to restart the drip. Patient complains of a sore belly pain since the surgery, stating that it is a 6/10 constant abdominal pain. WBC elevated from 7.7 -> 18.5, and with patient's tachycardia in the 120s since his surgery, he now meets 2/4 SIRS criteria. Re-ordered blood cultures to assess for possibility of new bacteremia since surgery. Hyponatremia worsened from 129 -> 124, ordered urine osmolytes to evaluate for salt wasting. NG tube clamped, continuining TPN. 05/05: Patient was seen and examined at bedside. Overnight, hemoglobin 6.9 with repeat H&H showing no change. Underwent 2 units PRBC transfusion. Posttransfusion H&H pending. Will continue to monitor. Patient today complains of some abdominal pain at his surgical area. Colostomy bag showed minimal dark liquid stool. Denies any fever. Per Dr. Hopper, [employer] pump changed to 1 mg morphine every 10 minutes. Will also repeat chest x-ray as patient has been complaining of some chest pain and increased shortness of breath. Physical therapy ordered to assist with ambulation and strengthening. Encouraged to use spirometry. WBC slight downtrend 17.5, hyponatremia 125, hypokalemia 3.3, hypophos 1.9. Repleated with 15mmol KPhos. 05/06: No acute overnight events. Patient stating that pain still present but improving. Per Dr. Hopper, will continue to hold off on heparin drip for treatment of his pulmonary embolism until his colostomy starts to function. Per adventure guide, up until this point patient has been on PPN, today will transition to TPN via his PICC line. 05/07: No acute overnight events. This morning, patient was switched from TPN to clear liquid diet. Will advance diet further when newly placed ostomy bag begins to receive stool. Per Dr. Hopper, will continue to hold heparin drip for pulmonary embolism treatment until ostomy begins to produce stool as well. Patient states that his pain has been improving, and he has been able to stand up and ambulate. No further complaints at this time. Pt firmly states that when is ready for discharge, he would like to go home and not to a SNF. Exam Vital Signs Temp Pulse Resp BP Pulse Ox O2 Del Method O2 Flow Rate 97.9 F 86 20 130/69 92 L Room Air 0 05/07/24 11:18 05/07/24 11:18 05/07/24 11:18 05/07/24 11:18 05/07/24 11:18 05/07/24 08:08 05/06/24 04:00 Narrative Exam Gen: Awake, oriented x3, responsive to questions, in no acute distress HEENT: NCAT, PERRLA, EOMI, MMM, anicteric conjunctivae. CVS: normal S1 and S2. RRR. No M/R/G. Resp: CTA B/L. No rhonchi, rales, crackles or wheezing. Abd: Firm, diffusely tender to palpation, distended but improved since pre-op, ostomy bag in place. BS+ in all 4 quadrants. MSK: Good ROM in BUE & BLE. No edema or rash. Neuro: Moves all extremities spontaneously Psych: appropriate mood and affect. Objective Labs 05/07/24 04:49 05/07/24 04:49 Labs: Laboratory Results - last 24 hr 05/07/24 04:49 WBC 10.6 RBC 3.38 L Hgb 9.4 L Hct 29.0 L MCV 86 MCH 27.8 MCHC 32.4 RDW Std Deviation 56.6 H Plt Count 231 Neut % (Auto) 69 Lymph % (Auto) 13 [place] % (Auto) 7 Eos % (Auto) 3 Baso % (Auto) 1 Neut # (Auto) 7.3 Lymph # (Auto) 1.4 [place] # (Auto) 0.8 Eos # (Auto) 0.3 Baso # (Auto) 0.1 Immature Gran # (Auto) 0.76 H Absolute Nucleated RBC 0.05 H Immature Gran % 7 H Nucleated RBC % 1 H Sodium 129 L Potassium 3.9 D Chloride 97 L Carbon Dioxide 26.8 Anion Gap 5 L BUN 8 L Creatinine 0.6 Estim Creat Clear Calc 119.1 eGFR > 60 BUN/Creatinine Ratio 13 Glucose 129 H Calculated Osmolality 259 L Calcium 8.0 L Triglycerides 295 H Quality Measures Quality Measures sepsis Current suspected stage: ruled out Possible source: GI tract/intra- abdominal Blood cultures ordered: yes Antibiotic ordered: Yes Advance care planning discussed with:: patient Assessment & Plan Assessment Current Active Medications: Generic Name Dose Route Start Last Admin Trade Name Freq PRN Reason Stop Dose Admin Ascorbic Acid 500 mg 05/04/24 21:00 05/07/24 09:28 Ascorbic Acid 250 Mg Tablet PO 06/03/24 20:59 Not Given BID RICKIE Docusate Sodium 100 mg 05/04/24 21:00 05/07/24 09:26 Docusate Sod 100 Mg Capsule PO 06/03/24 20:59 100 mg BID RICKIE Administration Protocol Fat Emulsion-Lorane Oil/Soybean Oil 500 mls @ 32 mls/hr 05/01/24 18:00 05/06/24 17:57 Clinopid 20% Iv IV 05/29/24 17:59 32 mls/hr [email or web address] RICKIE Administration Potassium Chloride 40 meq/ 2,020 mls @ 35 mls/hr 05/06/24 14:30 05/06/24 15:48 Amino Acids/Electrolytes IV 05/07/24 17:59 35 mls/hr [email or web address]@[id number] ONE Administration Cefoxitin Sodium 2 gm/ Sodium 10 mls @ 120 mls/hr 05/07/24 12:30 05/07/24 13:18 Chloride IV 05/10/24 17:59 120 mls/hr Q6HR RICKIE Administration Sodium Chloride 40 meq/ 2,020 mls @ 70 mls/hr 05/07/24 18:00 Multivitamins/Minerals 10 ml/ IV 05/08/24 17:59 Amino Acids/Electrolytes [email or web address]@1800 RICKIE Protocol Morphine Sulfate 0 mg 05/05/24 12:30 05/06/24 22:17 Morphine Sulf 1 Mg/Ml Bailing Machine Operator Syringe 30 Ml [employer] 05/08/24 14:10 30 mg PER ORDER RICKIE Administration Protocol Ondansetron HCl 4 mg 04/29/24 04:25 05/06/24 23:21 Ondansetron Inj 2 Mg/Ml Inj 2 Ml IV 05/29/24 04:24 4 mg Q6H PRN Administration NAUSEA OR VOMITING Protocol Pantoprazole Sodium 40 mg 04/29/24 09:00 05/07/24 09:31 Pantoprazole Inj 40 Mg Vial IVP 05/29/24 08:59 40 mg QDAY RICKIE Administration Zinc Sulfate 220 mg 05/05/24 09:00 05/07/24 09:28 Zinc Sulfate 220 Mg Capsule PO 06/04/24 08:59 Not Given QDAY RICKIE Plan Mr. Onel Yoder is a 68-year-old male with past medical history of PE on Eliquis, presented to ED on 04/28/2024 with chief complaints of abdominal pain and distention that progressively was getting worse x1 day. Patient himself is nonverbal at baseline and unable to communicate, but his clinical informaticist at bedside was able to provide a history. Interactive Graphic Designer stated that the pain started last night along with abdominal distension, accompanied by intractable nausea and vomiting with no visible blood. She also notes that he has been having frequent diarrhea for the last 2 months, and had two episodes of diarrhea yesterday. Interactive Graphic Designer denies that patient has had any bloody bowel movements recently. #Sigmoid Abscess #Sigmoid Perforation Patient presented with chief complaints of abdominal pain, CT abdomen revealed: Area of narrowing in the distal sigmoid colon with dilatation of proximal large bowel loops, neoplastic or inflammatory etiology cannot be excluded. Recommend clinical correlation and followup with sigmoidoscopy. Mild wall thickening of pyloric antrum with mild surrounding fat stranding likely inflammatory. Recommend follow-up. Diffuse gallbladder wall thickening with mild pericholecystic edema and fat stranding, unchanged since the prior examination. Exploratory laparotomy with sigmoid colectomy and end colostomy performed demonstrating marked inflammatory reaction of sigmoid colon and abscess cavity of sigmoid colon with sigmoid perforation. - Dr. Hopper consulted, performed ex-lap 05/03 with no complications, appreciate further recommendations - GI Dr. Lopez consulted, appreciate recommendations - IV Cefoxitin started (Course: 05/03-05/10) - Currently on clear liquid diet, will advance diet further once ostomy bag begins to produce stool - NG tube discontinued - Morphine 2mg IV q4h prn pain #Sepsis ruled out Patient met 2 out of 4 SIRS criteria - tachycardia and leukocytosis, along with known sigmoid abscess (removed in sigmoid colectomy 05/03) In ED patient was given IVF and Zosyn C. diff, urine, and blood cultures all resulted as negative - Lactic acid normalized - C. diff cultures negative - Blood cultures negative x2 - Monitor CBC/CMP daily #Normocytic Anemia With MCV in 80s, likely etiology being acute blood loss anemia secondary to patient's GI bleed. - Will continue to monitor Hgb daily - Transfuse if Hgb <7.0 - Hgb jyoti from 6.5 -> 9.2 after transfusing 2 units PRBCs on 05/05 #Pulmonary Embolism Patient was diagnosed with PE not certain when Patient is on Eliquis, however reported dark stool since starting the medication CT revealed right lower lobe pulmonary artery lobar and segmental thromboembolism - Holding heparin drip until colostomy site begins to work per Dr. Hopper #Electrolyte Imbalances Potassium initially 3.6 on arrival, decreased to 3.1 on morning of 04/29, increased over following days - Potassium stable at 3.9 today - Sodium stable at 129 today #Rib Fractures Patient stated that he fell about 8 weeks ago from the tree, at that time CT chest revealed multiple rib fracture without flare chest with mild left hemithorax, patient was managed in [facility] - Morphine 2mg q4h prn pain Health maintenance: Disposition: Med surg Diet: Clear liquids, will advance to soft solids once ostomy bag produces stool GI prophylaxis: Protonix 40mg IV qd DVT prophylaxis: SCDs Code: Full code Case disclosed with Attending Dr. Sims and my senior Dr. Magaña PGY3. Benitez Lyn, PGY1 Attending Provider Attestation/Addendum In short, patient is a 68-year-old male with significant past medical history of pulmonary embolism presently on Eliquis, who presented to the ED on 04/28 for complaints of abdominal pain and distention which was progressively worsening 1 day prior to admission. Patient subsequently admitted for suspected SBO. Patient subsequently underwent exploratory laparotomy with sigmoid colectomy and end colostomy on 05/03 secondary to large bowel obstruction and a likely perforated sigmoid diverticulitis with a contained abscess. INTERVAL HX: 05/06: Vital signs stable, patient afebrile overnight, patient presently on room air, SpO2 95%. Significant labs include a downtrending WBC of 13.2 today, hemoglobin 9.2, slight decrease from yesterday, sodium 129 which is up trended from yesterday at 125, potassium 3.2, normal renal function and an albumin low at 2.6. 05/07: Vital signs stable, patient afebrile overnight, I/O13 08/2314. Minimal stool in colostomy bag at time of bedside visit. Significant labs include a normal WBC, stable hemoglobin at 9.4, sodium stable at 129, normal renal function blood glucose in the 120s blood ASSESSMENT: #Sigmoid colon perforation and abscess, status post sigmoid colectomy and end colostomy on 05/03 #Normocytic anemia, possible component of blood loss secondary to surgery 1. General Surgery, Dr. Hopper consulted, appreciate recommendations 2. Gastroenterology consulted, appreciate recommendations 3. Continue IV cefoxitin for now 4. Patient will remain on liquid diet until stools are formed in colostomy bag 5. Pain control 6. Will monitor hemoglobin closely and transfuse for hemoglobin less than 7 7. Replete electrolytes as needed 8. Encourage ambulation and incentive spirometry which the patient does endorse he is doing #Pulmonary embolism 1. Will start heparin drip once patient starts having BMs [facility]. Will continue to hold for now Chronic Conditions: #Rib fracture, approximately 8 weeks old per patient, patient initially treated at [facility] #HLD #GERD 1. Will reconcile and continue home meds as appropriate Antimicrobials: IV cefoxitin start: 05/06 DISPO: Pending specialist recommendations and clinical improvement, patient will need home health for physical therapy at that time
[2024-05-07] MEDS: MULTIVITAMIN IV (18:27)
[2024-05-07] MEDS: [UNRECOGNIZED DRUG - OTHER] IV (18:27)
[2024-05-07] MEDS: AMINO ACID IV (18:27)
[2024-05-07] MEDS: SODIUM CHLOR ADDITIVE IV (18:27)
--- NOTE | 2024-05-07 19:18 | PD.IMPROG ---
Documentation for date of: 05/07/24 Subjective Subjective Interval history: Tolerating clear liquids without nausea vomiting Exam Vital Signs Temp Pulse Resp BP Pulse Ox O2 Del Method O2 Flow Rate 97.4 F 89 17 114/74 95 Room Air 0 05/07/24 16:00 05/07/24 16:00 05/07/24 16:00 05/07/24 16:00 05/07/24 16:00 05/07/24 16:00 05/06/24 04:00 Objective Labs 05/07/24 04:49 05/07/24 04:49 Labs: Laboratory Results - last 24 hr 05/07/24 04:49 WBC 10.6 RBC 3.38 L Hgb 9.4 L Hct 29.0 L MCV 86 MCH 27.8 MCHC 32.4 RDW Std Deviation 56.6 H Plt Count 231 Neut % (Auto) 69 Lymph % (Auto) 13 [place] % (Auto) 7 Eos % (Auto) 3 Baso % (Auto) 1 Neut # (Auto) 7.3 Lymph # (Auto) 1.4 [place] # (Auto) 0.8 Eos # (Auto) 0.3 Baso # (Auto) 0.1 Immature Gran # (Auto) 0.76 H Absolute Nucleated RBC 0.05 H Immature Gran % 7 H Nucleated RBC % 1 H Sodium 129 L Potassium 3.9 D Chloride 97 L Carbon Dioxide 26.8 Anion Gap 5 L BUN 8 L Creatinine 0.6 Estim Creat Clear Calc 119.1 eGFR > 60 BUN/Creatinine Ratio 13 Glucose 129 H Calculated Osmolality 259 L Calcium 8.0 L Triglycerides 295 H Impressions Impression: # Status post sigmoid colectomy with diverting colostomy Advance diet as tolerated Assessment & Plan A&P Narrative # Abnormal CT scan of the abdomen and pelvis showing focal narrowing of the colon in the region of sigmoid colon Since patient had a bowel movement Hopefully the patient in due course of time can take the GoLytely or it can be given through the NGT Although patient has not been able to tolerate either I will discuss the case with Dr. Hopper tomorrow morning Since the patient currently fully prepped with GoLytely He may need a diverting colostomy Thank you very much for the opportunity to participate in the care of this patient Time Spent With Patient Time: Total time spent is greater than 50% in coordination of care (as documented) at patient's floor/unit and/or counseling patient:
[2024-05-07] MEDS: MORPHINE SULF 1 MG/ML PCA SYRINGE 30 ML PCA (23:03)
[2024-05-08] VITALS (8 sets, daily range): BP systolic 125–140; BP diastolic 74–82; PULSE 78–90; RESP 16–96; TEMP 36.1–36.6; O2SAT 94–97; BMI 15.0
[2024-05-08] MEDS: SODIUM CHLORIDE 0.9% IV ×4 (05:12→23:48)
[2024-05-08] MEDS: CEFOXITIN IV ×4 (05:12→23:48)
[2024-05-08 06:32] LABS: Basophils # (Auto) 0.1 Thou/mm3 (0.0-0.2); Basophils % (Auto) 1 % (0-2.5); Eosinophils # (Auto) 0.3 Thou/mm3 (0.0-0.5); Eosinophils % (Auto) 3 % (0-10); Hematocrit 28.9 % (41.0-53.0); Hemoglobin 9.2 g/dL (13.5-16.0); Immature Granulocytes % (Auto) 5 % (0-0); Lymphocytes # (Auto) 1.6 Thou/mm3 (1.0-4.8); Lymphocytes % (Auto) 17 % (10-50); Mean Corpuscular HGB Conc 31.8 g/dl (31.0-37.0); Mean Corpuscular Hemoglobin 27.1 pg (25.0-35.0); Mean Corpuscular Volume 85 fL (80-100); Monocytes # (Auto) 0.7 Thou/mm3 (0.0-0.8); Monocytes % (Auto) 8 % (0-12); Neutrophils # (Auto) 6.4 Thou/mm3 (1.8-7.7); Neutrophils % (Auto) 67 % (37-80); Nucleated Red Blood Cell # 0.03 Thou/mm3 (0.00-0.00); Nucleated Red Blood Cell % 0 /100 WBC (0); Platelet Count 244 Thou/mm3 (140-440); RDW Standard Deviation 55.8 fL (35.1-43.9); Red Blood Count 3.39 Miln/mm3 (4.50-5.90); White Blood Count 9.5 Thou/mm3 (3.8-10.6)
[2024-05-08 06:48] LABS: Anion Gap 4 (7-16); BUN/Creatinine Ratio 11 Ratio (12-20); Blood Urea Nitrogen 8 mg/dL (9-23); Calcium 8.2 mg/dL (8.3-10.6); Carbon Dioxide 28.9 mMol/L (20.0-31.0); Chloride 99 mMol/L (98-107); Creatinine (Component) 0.7 mg/dL (0.6-1.3); Estimated Creatinine Clearance 102.1 mL/min (>60); Glucose 138 mg/dL (74-106); Osmolality,Calculated 264 (275-295); Potassium 3.7 mMol/L (3.4-5.1); Sodium 132 mMol/L (136-145); eGFR > 60 See Note
[2024-05-08] MEDS: DOCUSATE SOD 100 MG CAPSULE PO ×2 (10:08→20:45)
[2024-05-08] MEDS: PANTOPRAZOLE INJ 40 MG VIAL IVP (10:08)
--- NOTE | 2024-05-08 12:17 | ESPR_ITS ---
Documentation for date of: 05/08/24 Subjective Subjective Interval history: Patient evaluated No activity in the colostomy Exam Vital Signs Temp Pulse Resp BP Pulse Ox O2 Del Method O2 Flow Rate 97.0 F 80 20 129/77 96 Room Air 0 05/08/24 08:00 05/08/24 08:55 05/08/24 08:55 05/08/24 08:00 05/08/24 08:00 05/08/24 08:00 05/08/24 08:00 Objective Labs 05/09/24 05:10 05/09/24 05:10 Labs: Laboratory Results - last 24 hr 05/08/24 05:55 WBC 9.5 RBC 3.39 L Hgb 9.2 L Hct 28.9 L MCV 85 MCH 27.1 MCHC 31.8 RDW Std Deviation 55.8 H Plt Count 244 Neut % (Auto) 67 Lymph % (Auto) 17 [place] % (Auto) 8 Eos % (Auto) 3 Baso % (Auto) 1 Neut # (Auto) 6.4 Lymph # (Auto) 1.6 [place] # (Auto) 0.7 Eos # (Auto) 0.3 Baso # (Auto) 0.1 Immature Gran # (Auto) 0.50 H Absolute Nucleated RBC 0.03 H Immature Gran % 5 H Nucleated RBC % 0 Sodium 132 L Potassium 3.7 Chloride 99 Carbon Dioxide 28.9 Anion Gap 4 L BUN 8 L Creatinine 0.7 Estim Creat Clear Calc 102.1 eGFR > 60 BUN/Creatinine Ratio 11 L Glucose 138 H Calculated Osmolality 264 L Calcium 8.2 L Impressions Impression: # Status post sigmoid colectomy with diverting descending colon colostomy Continue current management Assessment & Plan A&P Narrative # Abnormal CT scan of the abdomen and pelvis showing focal narrowing of the colon in the region of sigmoid colon Since patient had a bowel movement Hopefully the patient in due course of time can take the GoLytely or it can be given through the NGT Although patient has not been able to tolerate either I will discuss the case with Dr. Hopper tomorrow morning Since the patient currently fully prepped with GoLytely He may need a diverting colostomy Thank you very much for the opportunity to participate in the care of this patient Time Spent With Patient Time: Total time spent is greater than 50% in coordination of care (as documented) at patient's floor/unit and/or counseling patient:
[2024-05-08] MEDS: HYDROcodone/APAP 5/325 TABLET 1 TAB PO ×2 (16:31→20:53)
--- NOTE | 2024-05-08 17:02 | ESPR_ITS ---
Documentation for date of: 05/08/24 Subjective Subjective Narrative: Feeling well overall, no nausea, remaining afebrile with normal WBC and Hgb stable at 9 Exam Vital Signs Temp Pulse Resp BP Pulse Ox O2 Del Method O2 Flow Rate 97.0 F 84 17 126/76 94 L Room Air 0 05/08/24 12:00 05/08/24 12:00 05/08/24 12:00 05/08/24 12:00 05/08/24 12:00 05/08/24 12:00 05/08/24 12:00 Constitutional Constitutional: no acute distress Routine Respiratory Exam Respiratory: Present no resp distress Routine Abdominal Exam Abdominal: Present soft and ostomy (colostomy pink); Absent tenderness or dis tended Results Results: Laboratory Laboratory results: results reviewed Assessment & Plan Plan 68M s/p sigmoidectomy with end colostomy 05/03, recovering well FLD Transition to PO pain meds per pt preference Encouraged ambulation Procedures Procedures Exploratory laparotomy, sigmoid colectomy with end colostomy
[2024-05-08] MEDS: AMINO ACID IV (17:42)
[2024-05-08] MEDS: MULTIVITAMIN IV (17:42)
[2024-05-08] MEDS: SODIUM CHLOR ADDITIVE IV (17:42)
[2024-05-08] MEDS: [UNRECOGNIZED DRUG - OTHER] IV (17:42)
[2024-05-08] MEDS: FAT EMUL/OLIVE/SOY/PHOS 20% IV 500 ML 32 ML IV (17:43)
--- NOTE | 2024-05-08 22:18 | ESPR_ITS ---
<Statement entered by Anita Levy MD - 05/08/24 23:03> I discussed with and supervised the audit practice intern physician who took care of this patient. I personally saw and examined the patient and discussed the assessment and plan with the entire medicine team, including my attending , I agree with most of the assessment and plan as documented below Anita Levy M.D. PGY-2 Documentation for date of: 05/08/24 Subjective Subjective Interval history: Patient was seen and examined at bedside. No acute events overnight. Today is postop day 5. Patient complains of difficult starting urine stream, discomfort since dixon cath was removed. Will start tamsulosin 0.4 mg daily. Ostomy bag has minmal output. Continue to hold heparin and no advancement of diet until there is increased output in ostomy bag. Physical therapy on board and recommends to continue with the therapy at time of discharge. Patient is interested in pursuing home health. Continue with pain management morphine 1 mg every 4 hours and [place] 5mg as needed and IV cefoxitin for sepsis secondary to sigmoidal abscess.? Labs, telemetry, and vitals were reviewed.?No further complaints at this time. Review of systems otherwise negative except what is mentioned above. Exam Vital Signs Temp Pulse Resp BP Pulse Ox O2 Del Method O2 Flow Rate 97.8 F 87 18 125/74 97 Room Air 0 05/08/24 20:00 05/08/24 20:00 05/08/24 20:00 05/08/24 20:00 05/08/24 20:00 05/08/24 20:00 05/08/24 16:00 Narrative Exam Gen: Awake, oriented x3, responsive to questions, in no acute distress HEENT: NCAT, PERRLA, EOMI, MMM, anicteric conjunctivae. CVS: normal S1 and S2. RRR. No M/R/G. Resp: CTA B/L. No rhonchi, rales, crackles or wheezing. Abd: Firm, diffusely tender to palpation, distended but improved since pre-op, ostomy bag in place. BS+ in all 4 quadrants. MSK: Good ROM in BUE & BLE. No edema or rash. Neuro: Moves all extremities spontaneously Psych: appropriate mood and affect. Objective Labs 05/09/24 05:10 05/09/24 05:10 Labs: Laboratory Results - last 24 hr 05/08/24 05:55 WBC 9.5 RBC 3.39 L Hgb 9.2 L Hct 28.9 L MCV 85 MCH 27.1 MCHC 31.8 RDW Std Deviation 55.8 H Plt Count 244 Neut % (Auto) 67 Lymph % (Auto) 17 [place] % (Auto) 8 Eos % (Auto) 3 Baso % (Auto) 1 Neut # (Auto) 6.4 Lymph # (Auto) 1.6 [place] # (Auto) 0.7 Eos # (Auto) 0.3 Baso # (Auto) 0.1 Immature Gran # (Auto) 0.50 H Absolute Nucleated RBC 0.03 H Immature Gran % 5 H Nucleated RBC % 0 Sodium 132 L Potassium 3.7 Chloride 99 Carbon Dioxide 28.9 Anion Gap 4 L BUN 8 L Creatinine 0.7 Estim Creat Clear Calc 102.1 eGFR > 60 BUN/Creatinine Ratio 11 L Glucose 138 H Calculated Osmolality 264 L Calcium 8.2 L Quality Measures Quality Measures sepsis Current suspected stage: ruled out Possible source: GI tract/intra- abdominal Blood cultures ordered: yes Antibiotic ordered: Yes Advance care planning discussed with:: patient Assessment & Plan Assessment Current Active Medications: Generic Name Dose Route Start Last Admin Trade Name Freq PRN Reason Stop Dose Admin Hydrocodone Bitart/Acetaminophen 1 tab 05/08/24 15:58 05/08/24 20:53 Hydrocodone/Apap 5/325 Tablet PO 05/13/24 15:57 1 tab Q4HR PRN Administration moderate to severe pain Protocol Ascorbic Acid 500 mg 05/04/24 21:00 05/08/24 20:45 Ascorbic Acid 250 Mg Tablet PO 06/03/24 20:59 Not Given BID RICKIE Docusate Sodium 100 mg 05/04/24 21:00 05/08/24 20:45 Docusate Sod 100 Mg Capsule PO 06/03/24 20:59 100 mg BID RICKIE Administration Protocol Fat Emulsion-[place] Oil/Soybean Oil 500 mls @ 32 mls/hr 05/01/24 18:00 05/08/24 17:43 Clinopid 20% Iv IV 05/29/24 17:59 32 mls/hr [email or web address] RICKIE Administration Cefoxitin Sodium 2 gm/ Sodium 10 mls @ 120 mls/hr 05/07/24 12:30 05/08/24 17:32 Chloride IV 05/10/24 17:59 120 mls/hr Q6HR RICKIE Administration Sodium Chloride 40 meq/ 2,020 mls @ 70 mls/hr 05/08/24 18:00 05/08/24 17:42 Multivitamins/Minerals 10 ml/ IV 05/09/24 17:59 70 mls/hr Amino Acids/Electrolytes QDAY@1800 RICKIE Administration Protocol Morphine Sulfate 1 mg 05/08/24 21:25 Morphine Sulf Inj 10 Mg/Ml Vial IVP 05/13/24 21:24 Q4HR PRN BREAKTHROUGH PAIN (SEVERE) Ondansetron HCl 4 mg 04/29/24 04:25 05/06/24 23:21 Ondansetron Inj 2 Mg/Ml Inj 2 Ml IV 05/29/24 04:24 4 mg Q6H PRN Administration NAUSEA OR VOMITING Protocol Pantoprazole Sodium 40 mg 04/29/24 09:00 05/08/24 10:08 Pantoprazole Inj 40 Mg Vial IVP 05/29/24 08:59 40 mg QDAY RICKIE Administration Zinc Sulfate 220 mg 05/05/24 09:00 05/08/24 10:09 Zinc Sulfate 220 Mg Capsule PO 06/04/24 08:59 Not Given QDAY RICKIE Plan Mr. Onel Yoder is a 68-year-old male with past medical history of PE on Eliquis, presented to ED on 04/28/2024 with chief complaints of abdominal pain and distention that progressively was getting worse x1 day. Patient himself is nonverbal at baseline and unable to communicate, but his stud setter at bedside was able to provide a history. Laborer Shaft Sinking stated that the pain started last night along with abdominal distension, accompanied by intractable nausea and vomiting with no visible blood. She also notes that he has been having frequent diarrhea for the last 2 months, and had two episodes of diarrhea yesterday. Laborer Sh[employer] S[place] denies that patient has had any bloody bowel movements recently. #Sigmoid Abscess #Sigmoid Perforation Patient presented with chief complaints of abdominal pain, CT abdomen revealed: Area of narrowing in the distal sigmoid colon with dilatation of proximal large bowel loops, neoplastic or inflammatory etiology cannot be excluded. Recommend clinical correlation and followup with sigmoidoscopy. Mild wall thickening of pyloric antrum with mild surrounding fat stranding likely inflammatory. Recommend follow-up. Diffuse gallbladder wall thickening with mild pericholecystic edema and fat stranding, unchanged since the prior examination. Exploratory laparotomy with sigmoid colectomy and end colostomy performed demonstrating marked inflammatory reaction of sigmoid colon and abscess cavity of sigmoid colon with sigmoid perforation. - Dr. Hopper consulted, performed ex-lap 05/03 with no complications, appreciate further recommendations - GI Dr. Lopez consulted, appreciate recommendations - IV Cefoxitin started (Course: 05/03-05/10) - Currently on clear liquid diet, will advance diet further once ostomy bag begins to produce stool - NG tube discontinued - Morphine 2mg IV q4h prn pain #Sepsis-resolved Patient met 2 out of 4 SIRS criteria - tachycardia and leukocytosis, along with known sigmoid abscess (removed in sigmoid colectomy 05/03) In ED patient was given IVF and Zosyn C. diff, urine, and blood cultures all resulted as negative - Lactic acid normalized - C. diff cultures negative - Blood cultures negative x2 - Monitor CBC/CMP daily #Normocytic Anemia With MCV in 80s, likely etiology being acute blood loss anemia secondary to patient's GI bleed. - Will continue to monitor Hgb daily - Transfuse if Hgb <7.0 - Hgb jyoti from 6.5 -> 9.2 after transfusing 2 units PRBCs on 05/05 #Pulmonary Embolism Patient was diagnosed with PE not certain when Patient is on Eliquis, however reported dark stool since starting the medication CT revealed right lower lobe pulmonary artery lobar and segmental thromboembolism - Holding heparin drip until colostomy site begins to work per Dr. Hopper #Electrolyte Imbalances Potassium initially 3.6 on arrival, decreased to 3.1 on morning of 04/29, increased over following days -continue to monitor #Rib Fractures Patient stated that he fell about 8 weeks ago from the tree, at that time CT chest revealed multiple rib fracture without flare chest with mild left hemithorax, patient was managed in [facility] - Morphine 2mg q4h prn pain Health maintenance: Disposition: Med surg Diet: Full liquids, will advance to soft solids once ostomy bag produces stool GI prophylaxis: Protonix 40mg IV qd DVT prophylaxis: SCDs Code: Full code Case disclosed with Attending Dr. Sims and my senior Dr. Levy. More Lora, PGY1 Attending Provider Attestation/Addendum I have discussed and was present for the essential components of the history, physical examination, diagnosis, and treatment plan with the resident. I agree with the patient's care as documented by the resident and amended herein by me. Damon Sims DO. Although this document has been carefully reviewed, there may still be some phonetic and other typographical errors. These errors are purely grammatical due to imperfections in the software program and should not be construed in any way to compromise the substance of the patient's medical care during this visit.
[2024-05-08] MEDS: TAMSULOSIN HCL 0.4 MG CAPSULE PO (23:47)
[2024-05-09] VITALS: BP 128/71; PULSE 89; RESP 18; TEMP 36.4; O2SAT 96
[2024-05-09] MEDS: HYDROcodone/APAP 5/325 TABLET 1 TAB PO ×5 (00:56→22:14)
[2024-05-09 04:00] VITALS: BP 133/81; PULSE 88; RESP 18; TEMP 36.5; O2SAT 95
[2024-05-09] MEDS: SODIUM CHLORIDE 0.9% IV ×4 (05:11→23:35)
[2024-05-09] MEDS: CEFOXITIN IV ×4 (05:11→23:35)
[2024-05-09 06:00] VITALS: BMI 28.3
[2024-05-09 06:05] LABS: Basophils # (Auto) 0.1 Thou/mm3 (0.0-0.2); Basophils % (Auto) 1 % (0-2.5); Eosinophils # (Auto) 0.3 Thou/mm3 (0.0-0.5); Eosinophils % (Auto) 3 % (0-10); Hematocrit 29.2 % (41.0-53.0); Hemoglobin 9.2 g/dL (13.5-16.0); Immature Granulocytes % (Auto) 5 % (0-0); Immature Granulocytes Auto 0.48 Thou/mm3 (0.00-0.00); Lymphocytes # (Auto) 1.5 Thou/mm3 (1.0-4.8); Lymphocytes % (Auto) 15 % (10-50); Mean Corpuscular HGB Conc 31.5 g/dl (31.0-37.0); Mean Corpuscular Volume 89 fL (80-100); Monocytes # (Auto) 0.7 Thou/mm3 (0.0-0.8); Monocytes % (Auto) 7 % (0-12); Neutrophils # (Auto) 7.1 Thou/mm3 (1.8-7.7); Neutrophils % (Auto) 70 % (37-80); Nucleated Red Blood Cell # 0.02 Thou/mm3 (0.00-0.00); Nucleated Red Blood Cell % 0 /100 WBC (0); Platelet Count 275 Thou/mm3 (140-440); Red Blood Count 3.29 Miln/mm3 (4.50-5.90); White Blood Count 10.2 Thou/mm3 (3.8-10.6)
[2024-05-09 06:40] LABS: Anion Gap 4 (7-16); BUN/Creatinine Ratio 20 Ratio (12-20); Blood Urea Nitrogen 8 mg/dL (9-23); Calcium 8.4 mg/dL (8.3-10.6); Carbon Dioxide 26.8 mMol/L (20.0-31.0); Chloride 101 mMol/L (98-107); Creatinine (Component) 0.4 mg/dL (0.6-1.3); Estimated Creatinine Clearance 175.5 mL/min (>60); Glucose 136 mg/dL (74-106); Osmolality,Calculated 264 (275-295); Phosphorous 3.4 mg/dL (2.4-5.1); Potassium 3.4 mMol/L (3.4-5.1); Sodium 132 mMol/L (136-145); eGFR > 60 See Note
[2024-05-09 08:00] VITALS: BP 134/74; PULSE 90; RESP 17; TEMP 36.1; O2SAT 95
[2024-05-09] MEDS: PANTOPRAZOLE INJ 40 MG VIAL IVP (08:32)
[2024-05-09] MEDS: POTASSIUM CHLORIDE 20 mEq TABCR 40 MEQ PO (08:32)
[2024-05-09] MEDS: TAMSULOSIN HCL 0.4 MG CAPSULE PO (08:33)
[2024-05-09] MEDS: DOCUSATE SOD 100 MG CAPSULE PO ×2 (08:33→20:32)
--- NOTE | 2024-05-09 09:23 | PC.CM ---
As per SS notes patient is [facility] to [facility].
[2024-05-09 12:00] VITALS: BP 134/78; PULSE 88; RESP 18; TEMP 36.1; O2SAT 95
--- NOTE | 2024-05-09 12:14 | PD.SURPROG ---
Documentation for date of: 05/09/24 Subjective Subjective Narrative: Pain controlled with PO meds, no fever, no complaints Exam Vital Signs Temp Pulse Resp BP Pulse Ox O2 Del Method O2 Flow Rate 97.0 F 90 17 134/74 H 95 Room Air 0 05/09/24 08:00 05/09/24 08:00 05/09/24 08:00 05/09/24 08:00 05/09/24 08:00 05/09/24 08:00 05/09/24 08:00 Constitutional Constitutional: no acute distress Routine Respiratory Exam Respiratory: Present no resp distress Routine Abdominal Exam Abdominal: Present soft and ostomy (colostomy pink); Absent tenderness or distended Results Results: Laboratory Laboratory results: results reviewed Assessment & Plan Plan 68M s/p sigmoidectomy with end colostomy 05/03, recovering well FLD, advance when colostomy functioning Encourage ambulation Procedures Procedures Exploratory laparotomy, sigmoid colectomy with end colostomy
[2024-05-09 16:00] VITALS: BP 134/76; PULSE 76; RESP 17; TEMP 36.2; O2SAT 96
[2024-05-09] MEDS: [UNRECOGNIZED DRUG - OTHER] IV (17:10)
[2024-05-09] MEDS: AMINO ACID IV (17:10)
--- NOTE | 2024-05-09 19:32 | ESPR_ITS ---
Documentation for date of: 05/09/24 Subjective Subjective Interval history: Patient evaluated On clear liquid diet Exam Vital Signs Temp Pulse Resp BP Pulse Ox O2 Del Method O2 Flow Rate 97.2 F 76 17 134/76 H 96 Room Air 0 05/09/24 16:00 05/09/24 16:00 05/09/24 16:00 05/09/24 16:00 05/09/24 16:00 05/09/24 16:00 05/09/24 12:00 Objective Labs 05/09/24 05:10 05/09/24 05:10 Labs: Laboratory Results - last 24 hr 05/09/24 05:10 WBC 10.2 RBC 3.29 L Hgb 9.2 L Hct 29.2 L MCV 89 MCH 28.0 MCHC 31.5 RDW Std Deviation 59.0 H Plt Count 275 D Neut % (Auto) 70 Lymph % (Auto) 15 [place] % (Auto) 7 Eos % (Auto) 3 Baso % (Auto) 1 Neut # (Auto) 7.1 Lymph # (Auto) 1.5 [place] # (Auto) 0.7 Eos # (Auto) 0.3 Baso # (Auto) 0.1 Immature Gran # (Auto) 0.48 H Absolute Nucleated RBC 0.02 H Immature Gran % 5 H Nucleated RBC % 0 Sodium 132 L Potassium 3.4 Chloride 101 Carbon Dioxide 26.8 Anion Gap 4 L BUN 8 L Creatinine 0.4 L Estim Creat Clear Calc 175.5 eGFR > 60 BUN/Creatinine Ratio 20 Glucose 136 H Calculated Osmolality 264 L Calcium 8.4 Phosphorus 3.4 Magnesium 2.0 Impressions Impression: # Status post sigmoid colectomy # Status post diverting colostomy Continue current management # Assessment & Plan A&P Narrative # Abnormal CT scan of the abdomen and pelvis showing focal narrowing of the colon in the region of sigmoid colon Since patient had a bowel movement Hopefully the patient in due course of time can take the GoLytely or it can be given through the NGT Although patient has not been able to tolerate either I will discuss the case with Dr. Hopper tomorrow morning Since the patient currently fully prepped with GoLytely He may need a diverting colostomy Thank you very much for the opportunity to participate in the care of this patient Time Spent With Patient Time: Total time spent is greater than 50% in coordination of care (as documented) at patient's floor/unit and/or counseling patient:
[2024-05-09 20:00] VITALS: BP 132/75; PULSE 91; RESP 17; TEMP 36.2; O2SAT 97
[2024-05-09] MEDS: HEPARIN SOD INJ 5000 UNIT/ML VIAL SC (20:32)
--- NOTE | 2024-05-09 20:45 | ESPR_ITS ---
Documentation for date of: 05/09/24 Subjective Subjective Interval history: Patient was seen and examined at bedside. No acute events overnight. Today is postop day 6. Patients dysuria has resolved since starting tamsulosin 0.4 daily. Ostomy bag continues to have minmal output. Start heparin DVT proph today--per Dr. Chirinos recommendations. No advancement of diet until there is increased output in ostomy bag. Physical therapy on board and recommends to continue with the therapy at time of discharge. Patient is interested in pursuing home health. Continue with pain management morphine 1 mg every 4 hours and [place] 5mg as needed and IV cefoxitin (ends tomorrow) for sepsis secondary to sigmoidal abscess.? Potassium is 3.4 today--repleted with 40 mill equivalent Creatinine 0.4, hemoglobin 9.2. Review of systems otherwise negative except what is mentioned above. Exam Vital Signs Temp Pulse Resp BP Pulse Ox O2 Del Method O2 Flow Rate 97.1 F 91 17 132/75 H 97 Room Air 0 05/09/24 20:00 05/09/24 20:00 05/09/24 20:00 05/09/24 20:00 05/09/24 20:00 05/09/24 20:00 05/09/24 20:00 Narrative Exam Gen: Awake, oriented x3, responsive to questions, in no acute distress HEENT: NCAT, PERRLA, EOMI, MMM, anicteric conjunctivae. CVS: normal S1 and S2. RRR. No M/R/G. Resp: CTA B/L. No rhonchi, rales, crackles or wheezing. Abd: Firm, diffusely tender to palpation, distended but improved since pre-op, ostomy bag in place. BS+ in all 4 quadrants. MSK: Good ROM in BUE & BLE. No edema or rash. Neuro: Moves all extremities spontaneously Psych: appropriate mood and affect. Objective Labs 05/10/24 05:05 05/10/24 05:05 Labs: Laboratory Results - last 24 hr 05/09/24 05:10 WBC 10.2 RBC 3.29 L Hgb 9.2 L Hct 29.2 L MCV 89 MCH 28.0 MCHC 31.5 RDW Std Deviation 59.0 H Plt Count 275 D Neut % (Auto) 70 Lymph % (Auto) 15 [place] % (Auto) 7 Eos % (Auto) 3 Baso % (Auto) 1 Neut # (Auto) 7.1 Lymph # (Auto) 1.5 [place] # (Auto) 0.7 Eos # (Auto) 0.3 Baso # (Auto) 0.1 Immature Gran # (Auto) 0.48 H Absolute Nucleated RBC 0.02 H Immature Gran % 5 H Nucleated RBC % 0 Sodium 132 L Potassium 3.4 Chloride 101 Carbon Dioxide 26.8 Anion Gap 4 L BUN 8 L Creatinine 0.4 L Estim Creat Clear Calc 175.5 eGFR > 60 BUN/Creatinine Ratio 20 Glucose 136 H Calculated Osmolality 264 L Calcium 8.4 Phosphorus 3.4 Magnesium 2.0 Quality Measures Quality Measures sepsis Current suspected stage: ruled out Possible source: GI tract/intra- abdominal Blood cultures ordered: yes Antibiotic ordered: Yes Advance care planning discussed with:: patient Assessment & Plan Assessment Current Active Medications: Generic Name Dose Route Start Last Admin Trade Name Freq PRN Reason Stop Dose Admin Hydrocodone Bitart/Acetaminophen 1 tab 05/08/24 15:58 05/09/24 18:02 Hydrocodone/Apap 5/325 Tablet PO 05/13/24 15:57 1 tab Q4HR PRN Administration moderate to severe pain Protocol Ascorbic Acid 500 mg 05/04/24 21:00 05/09/24 20:32 Ascorbic Acid 250 Mg Tablet PO 06/03/24 20:59 Not Given BID RICKIE Docusate Sodium 100 mg 05/04/24 21:00 05/09/24 20:32 Docusate Sod 100 Mg Capsule PO 06/03/24 20:59 100 mg BID RICKIE Administration Protocol Heparin Sodium (Porcine) 5,000 unit 05/09/24 21:00 05/09/24 20:32 Heparin Sod Inj 5000 Unit/Ml Vial SC 05/23/24 20:59 5,000 unit Q12HR RICKIE Administration Fat Emulsion-[place] Oil/Soybean Oil 500 mls @ 32 mls/hr 05/01/24 18:00 05/08/24 17:43 Clinopid 20% Iv IV 05/29/24 17:59 32 mls/hr [email or web address] RICKIE Administration Cefoxitin Sodium 2 gm/ Sodium 10 mls @ 120 mls/hr 05/07/24 12:30 05/09/24 17:02 Chloride IV 05/10/24 17:59 120 mls/hr Q6HR RICKIE Administration Amino Acids/Electrolytes 2,000 mls @ 69.307 mls/hr 05/09/24 18:00 05/09/24 17:10 Clinimix E 5/20 IV 05/10/24 17:59 69.307 mls/hr [email or web address]@1800 RICKIE Administration Protocol Morphine Sulfate 1 mg 05/08/24 21:25 Morphine Sulf Inj 10 Mg/Ml Vial IVP 05/13/24 21:24 Q4HR PRN BREAKTHROUGH PAIN (SEVERE) Ondansetron HCl 4 mg 04/29/24 04:25 05/06/24 23:21 Ondansetron Inj 2 Mg/Ml Inj 2 Ml IV 05/29/24 04:24 4 mg Q6H PRN Administration NAUSEA OR VOMITING Protocol Pantoprazole Sodium 40 mg 04/29/24 09:00 05/09/24 08:32 Pantoprazole Inj 40 Mg Vial IVP 05/29/24 08:59 40 mg QDAY RICKIE Administration Tamsulosin HCl 0.4 mg 05/08/24 22:40 05/09/24 08:33 Tamsulosin Hcl 0.4 Mg Capsule PO 06/07/24 22:39 0.4 mg QDAY RICKIE Administration Zinc Sulfate 220 mg 05/05/24 09:00 05/09/24 08:28 Zinc Sulfate 220 Mg Capsule PO 06/04/24 08:59 Not Given QDAY RICKIE Plan Mr. Onel Yoder is a 68-year-old male with past medical history of PE on Eliquis, presented to ED on 04/28/2024 with chief complaints of abdominal pain and distention that progressively was getting worse x1 day. Patient himself is nonverbal at baseline and unable to communicate, but his hand screen printer at bedside was able to provide a history. Bulldozer Press Operator stated that the pain started last night along with abdominal distension, accompanied by intractable nausea and vomiting with no visible blood. She also notes that he has been having frequent diarrhea for the last 2 months, and had two episodes of diarrhea yesterday. Bulldozer Press Operator denies that patient has had any bloody bowel movements recently. #Sigmoid Abscess #Sigmoid Perforation Patient presented with chief complaints of abdominal pain, CT abdomen revealed: Area of narrowing in the distal sigmoid colon with dilatation of proximal large bowel loops, neoplastic or inflammatory etiology cannot be excluded. Recommend clinical correlation and followup with sigmoidoscopy. Mild wall thickening of pyloric antrum with mild surrounding fat stranding likely inflammatory. Recommend follow-up. Diffuse gallbladder wall thickening with mild pericholecystic edema and fat stranding, unchanged since the prior examination. Exploratory laparotomy with sigmoid colectomy and end colostomy performed demonstrating marked inflammatory reaction of sigmoid colon and abscess cavity of sigmoid colon with sigmoid perforation. - Dr. Hopper consulted, performed ex-lap 05/03 with no complications, appreciate further recommendations - GI Dr. Lopez consulted, appreciate recommendations - IV Cefoxitin started (Course: 05/03-05/10) - Currently on clear liquid diet, will advance diet further once ostomy bag begins to produce stool - NG tube discontinued - Morphine 2mg IV q4h prn pain #Sepsis-resolved Patient met 2 out of 4 SIRS criteria - tachycardia and leukocytosis, along with known sigmoid abscess (removed in sigmoid colectomy 05/03) In ED patient was given IVF and Zosyn C. diff, urine, and blood cultures all resulted as negative - Lactic acid normalized - C. diff cultures negative - Blood cultures negative x2 - Monitor CBC/CMP daily #Normocytic Anemia With MCV in 80s, likely etiology being acute blood loss anemia secondary to patient's GI bleed. - Will continue to monitor Hgb daily - Transfuse if Hgb <7.0 - Hgb jyoti from 6.5 -> 9.2 after transfusing 2 units PRBCs on 05/05 #Pulmonary Embolism Patient was diagnosed with PE not certain when Patient is on Eliquis, however reported dark stool since starting the medication CT revealed right lower lobe pulmonary artery lobar and segmental thromboembolism -started heparin DVT prophylaxix today per Dr. Candis valerio. #Electrolyte Imbalances Potassium initially 3.6 on arrival, decreased to 3.1 on morning of 04/29, increased over following days -continue to monitor #Rib Fractures Patient stated that he fell about 8 weeks ago from the tree, at that time CT chest revealed multiple rib fracture without flare chest with mild left hemithorax, patient was managed in [facility] - Morphine 2mg q4h prn pain Health maintenance: Disposition: Med surg Diet: Full liquids, will advance to soft solids once ostomy bag produces stool GI prophylaxis: Protonix 40mg IV qd DVT prophylaxis: SCDs Code: Full code Case disclosed with Attending Dr. Sims and my senior Dr. Archana Lora, PGY1 Attending Provider Attestation/Addendum I have discussed and was present for the essential components of the history, physical examination, diagnosis, and treatment plan with the resident. I agree with the patient's care as documented by the resident and amended herein by me. Damon Sims DO. Although this document has been carefully reviewed, there may still be some phonetic and other typographical errors. These errors are purely grammatical due to imperfections in the software program and should not be construed in any way to compromise the substance of the patient's medical care during this visit.
[2024-05-10] VITALS: BP 142/82; PULSE 93; RESP 17; TEMP 36.3; O2SAT 96
[2024-05-10] MEDS: MELATONIN 3 MG TABLET PO ×2 (00:15→22:51)
[2024-05-10 04:00] VITALS: BP 131/79; PULSE 89; RESP 19; TEMP 36.4; O2SAT 97
[2024-05-10] MEDS: HYDROcodone/APAP 5/325 TABLET 1 TAB PO ×5 (04:05→22:06)
[2024-05-10] MEDS: SODIUM CHLORIDE 0.9% IV ×2 (05:25→13:00)
[2024-05-10] MEDS: CEFOXITIN IV ×2 (05:25→13:00)
[2024-05-10 06:00] VITALS: BMI 27.4
[2024-05-10 06:44] LABS: Basophils # (Auto) 0.1 Thou/mm3 (0.0-0.2); Basophils % (Auto) 1 % (0-2.5); Eosinophils # (Auto) 0.4 Thou/mm3 (0.0-0.5); Eosinophils % (Auto) 3 % (0-10); Hematocrit 29.6 % (41.0-53.0); Hemoglobin 9.1 g/dL (13.5-16.0); Immature Granulocytes % (Auto) 4 % (0-0); Immature Granulocytes Auto 0.42 Thou/mm3 (0.00-0.00); Lymphocytes # (Auto) 1.6 Thou/mm3 (1.0-4.8); Lymphocytes % (Auto) 16 % (10-50); Mean Corpuscular HGB Conc 30.7 g/dl (31.0-37.0); Mean Corpuscular Hemoglobin 27.3 pg (25.0-35.0); Mean Corpuscular Volume 89 fL (80-100); Monocytes # (Auto) 0.6 Thou/mm3 (0.0-0.8); Monocytes % (Auto) 6 % (0-12); Neutrophils # (Auto) 7.3 Thou/mm3 (1.8-7.7); Neutrophils % (Auto) 70 % (37-80); Nucleated Red Blood Cell % 0 /100 WBC (0); Platelet Count 321 Thou/mm3 (140-440); RDW Standard Deviation 59.7 fL (35.1-43.9); Red Blood Count 3.33 Miln/mm3 (4.50-5.90); White Blood Count 10.4 Thou/mm3 (3.8-10.6)
[2024-05-10 07:01] LABS: Alanine Aminotransferase 23 U/L (10-49); Albumin/Globulin Ratio 1.1 (1.2-2.2); Alkaline Phosphatase 118 U/L (46-116); Anion Gap 4 (7-16); Aspartate Amino Transferase 14 U/L (0-34); BUN/Creatinine Ratio 23 Ratio (12-20); Bilirubin,Total 0.4 mg/dL (0.3-1.2); Blood Urea Nitrogen 9 mg/dL (9-23); Calcium 8.6 mg/dL (8.3-10.6); Calcium (Corrected) 9.4 mg/dL (8.5-10.1); Carbon Dioxide 27.6 mMol/L (20.0-31.0); Chloride 101 mMol/L (98-107); Creatinine (Component) 0.4 mg/dL (0.6-1.3); Estimated Creatinine Clearance 173.2 mL/min (>60); Globulin 2.7 gm/dL (2.3-3.5); Glucose 134 mg/dL (74-106); Magnesium 1.9 mg/dL (1.6-2.6); Osmolality,Calculated 267 (275-295); Phosphorous 3.8 mg/dL (2.4-5.1); Potassium 3.8 mMol/L (3.4-5.1); Sodium 133 mMol/L (136-145); Total Protein 5.7 gm/dL (5.7-8.2); eGFR > 60 See Note
[2024-05-10 07:24] VITALS: BP 133/78; PULSE 87; RESP 19; TEMP 36.4; O2SAT 97
[2024-05-10] MEDS: PANTOPRAZOLE INJ 40 MG VIAL IVP (08:11)
[2024-05-10] MEDS: DOCUSATE SOD 100 MG CAPSULE PO ×2 (08:11→20:27)
[2024-05-10] MEDS: TAMSULOSIN HCL 0.4 MG CAPSULE PO (08:11)
[2024-05-10] MEDS: HEPARIN SOD INJ 5000 UNIT/ML VIAL SC (08:12)
--- NOTE | 2024-05-10 11:57 | PD.SURPROG ---
Documentation for date of: 05/10/24 Subjective Subjective Narrative: Colostomy functioning, patient feels very well with no pain or nausea Exam Vital Signs Temp Pulse Resp BP Pulse Ox O2 Del Method O2 Flow Rate 97.6 F 87 19 133/78 H 97 Room Air 0 05/10/24 07:24 05/10/24 07:24 05/10/24 07:24 05/10/24 07:24 05/10/24 07:24 05/10/24 07:24 05/10/24 04:00 Constitutional Constitutional: no acute distress Routine Respiratory Exam Respiratory: Present no resp distress Routine Abdominal Exam Abdominal: Present soft and ostomy (Colostomy pink with brown stool in appliance); Absent tenderness or distended Results Results: Laboratory Laboratory results: results reviewed Assessment & Plan Plan 68M s/p sigmoidectomy with end colostomy 05/03, recovering well with return of bowel function Regular diet, dc TPN Resume anticoagulation Procedures Procedures Exploratory laparotomy, sigmoid colectomy with end colostomy
[2024-05-10 12:00] VITALS: BP 126/70; PULSE 84; RESP 19; TEMP 36.4; O2SAT 97
--- NOTE | 2024-05-10 14:20 | PD.RESPRO ---
Documentation for date of: 05/10/24 Subjective Subjective Interval history: Patient was seen and examined at bedside. No acute events overnight. Today is postop day 7. Patients dysuria has resolved since starting tamsulosin 0.4 daily. Ostomy bag now has some stool production that is soft-liquid, dark color. Per Dr. Chirinos recommendations, okay to advance diet now and start patient back on Eliquis 10mg BID. Physical therapy on board and recommends to continue with the therapy at time of discharge. Patient is interested in pursuing home health. Continue with pain management morphine 1 mg every 4 hours and [place] 5mg as needed Cefoxitin course completed today for treatment of sepsis 2/2 sigmoid abscess. Potassium is 3.8 today Creatinine 0.4, hemoglobin 9. Anticipate discharge tomorrow Review of systems otherwise negative except what is mentioned above. Exam Vital Signs Temp Pulse Resp BP Pulse Ox O2 Del Method O2 Flow Rate 97.6 F 84 19 126/70 97 Room Air 0 05/10/24 12:00 05/10/24 12:00 05/10/24 12:00 05/10/24 12:00 05/10/24 12:00 05/10/24 12:00 05/10/24 04:00 Narrative Exam Gen: Awake, oriented x3, responsive to questions, in no acute distress HEENT: NCAT, PERRLA, EOMI, MMM, anicteric conjunctivae. CVS: normal S1 and S2. RRR. No M/R/G. Resp: CTA B/L. No rhonchi, rales, crackles or wheezing. Abd: Firm, diffusely tender to palpation, distended but improved since pre-op, ostomy bag in place. BS+ in all 4 quadrants. MSK: Good ROM in BUE & BLE. No edema or rash. Neuro: Moves all extremities spontaneously Psych: appropriate mood and affect. Objective Labs 05/10/24 05:05 05/10/24 05:05 Labs: Laboratory Results - last 24 hr 05/10/24 05:05 WBC 10.4 RBC 3.33 L Hgb 9.1 L Hct 29.6 L MCV 89 MCH 27.3 MCHC 30.7 L RDW Std Deviation 59.7 H Plt Count 321 D Neut % (Auto) 70 Lymph % (Auto) 16 [place] % (Auto) 6 Eos % (Auto) 3 Baso % (Auto) 1 Neut # (Auto) 7.3 Lymph # (Auto) 1.6 [place] # (Auto) 0.6 Eos # (Auto) 0.4 Baso # (Auto) 0.1 Immature Gran # (Auto) 0.42 H Absolute Nucleated RBC 0.00 Immature Gran % 4 H Nucleated RBC % 0 Sodium 133 L Potassium 3.8 Chloride 101 Carbon Dioxide 27.6 Anion Gap 4 L BUN 9 Creatinine 0.4 L Estim Creat Clear Calc 173.2 eGFR > 60 BUN/Creatinine Ratio 23 H Glucose 134 H Calculated Osmolality 267 L Calcium 8.6 Corrected Calcium 9.4 Phosphorus 3.8 Magnesium 1.9 Total Bilirubin 0.4 AST 14 ALT 23 Alkaline Phosphatase 118 H Total Protein 5.7 Albumin 3.0 L Globulin 2.7 Albumin/Globulin Ratio 1.1 L Quality Measures Quality Measures sepsis Current suspected stage: ruled out Possible source: GI tract/intra-abdominal Blood cultures ordered: yes Antibiotic ordered: Yes Advance care planning discussed with:: patient Assessment & Plan Assessment Current Active Medications: Generic Name Dose Route Start Last Admin Trade Name Freq PRN Reason Stop Dose Admin Hydrocodone Bitart/Acetaminophen 1 tab 05/08/24 15:58 05/10/24 13:00 Hydrocodone/Apap 5/325 Tablet PO 05/13/24 15:57 1 tab Q4HR PRN Administration moderate to severe pain Protocol Apixaban 10 mg 05/10/24 13:00 Apixaban 2.5 Mg Tablet PO 05/16/24 21:01 BID RICKIE Ascorbic Acid 500 mg 05/04/24 21:00 05/10/24 08:39 Ascorbic Acid 250 Mg Tablet PO 06/03/24 20:59 Not Given BID RICKIE Docusate Sodium 100 mg 05/04/24 21:00 05/10/24 08:11 Docusate Sod 100 Mg Capsule PO 06/03/24 20:59 100 mg BID RICKIE Administration Protocol Fat Emulsion-[place] Oil/Soybean Oil 500 mls @ 32 mls/hr 05/01/24 18:00 05/08/24 17:43 Clinopid 20% Iv IV 05/29/24 17:59 32 mls/hr [email or web address] RICKIE Administration Cefoxitin Sodium 2 gm/ Sodium 10 mls @ 120 mls/hr 05/07/24 12:30 05/10/24 13:00 Chloride IV 05/10/24 17:59 120 mls/hr Q6HR RICKIE Administration Amino Acids/Electrolytes 2,000 mls @ 69.307 mls/hr 05/09/24 18:00 05/09/24 17:10 Clinimix E 20 IV 05/10/24 17:59 69.307 mls/hr [email or web address]@1800 RICKIE Administration Protocol Sodium Chloride 40 meq/ Amino 2,010 mls @ 70 mls/hr 05/10/24 18:00 Acids/Electrolytes IV 06/09/24 17:59 [id number]@1800 RICKIE Protocol Melatonin 3 mg 05/09/24 23:51 05/10/24 00:15 Melatonin 3 Mg Tablet PO 06/08/24 23:34 3 mg HS PRN Administration sleep Morphine Sulfate 1 mg 05/08/24 21:25 Morphine Sulf Inj 10 Mg/Ml Vial IVP 05/13/24 21:24 Q4HR PRN BREAKTHROUGH PAIN (SEVERE) Ondansetron HCl 4 mg 04/29/24 04:25 05/06/24 23:21 Ondansetron Inj 2 Mg/Ml Inj 2 Ml IV 05/29/24 04:24 4 mg Q6H PRN Administration NAUSEA OR VOMITING Protocol Pantoprazole Sodium 40 mg 04/29/24 09:00 05/10/24 08:11 Pantoprazole Inj 40 Mg Vial IVP 05/29/24 08:59 40 mg QDAY RICKIE Administration Tamsulosin HCl 0.4 mg 05/08/24 22:40 05/10/24 08:11 Tamsulosin Hcl 0.4 Mg Capsule PO 06/07/24 22:39 0.4 mg QDAY RICKIE Administration Zinc Sulfate 220 mg 05/05/24 09:00 05/10/24 08:39 Zinc Sulfate 220 Mg Capsule PO 06/04/24 08:59 Not Given QDAY RICKIE Plan Mr. Onel Yoder is a 68-year-old male with past medical history of PE on Eliquis, presented to ED on 04/28/2024 with chief complaints of abdominal pain and distention that progressively was getting worse x1 day. Patient himself is nonverbal at baseline and unable to communicate, but his medical insurance coder at bedside was able to provide a history. Survey Research Professor stated that the pain started last night along with abdominal distension, accompanied by intractable nausea and vomiting with no visible blood. She also notes that he has been having frequent diarrhea for the last 2 months, and had two episodes of diarrhea yesterday. Survey Research Professor denies that patient has had any bloody bowel movements recently. #Sigmoid Abscess #Sigmoid Perforation Patient presented with chief complaints of abdominal pain, CT abdomen revealed: Area of narrowing in the distal sigmoid colon with dilatation of proximal large bowel loops, neoplastic or inflammatory etiology cannot be excluded. Recommend clinical correlation and followup with sigmoidoscopy. Mild wall thickening of pyloric antrum with mild surrounding fat stranding likely inflammatory. Recommend follow-up. Diffuse gallbladder wall thickening with mild pericholecystic edema and fat stranding, unchanged since the prior examination. Exploratory laparotomy with sigmoid colectomy and end colostomy performed demonstrating marked inflammatory reaction of sigmoid colon and abscess cavity of sigmoid colon with sigmoid perforation. - Dr. Hopper consulted, performed ex-lap 05/03 with no complications, appreciate further recommendations - GI Dr. Lopez consulted, appreciate recommendations - IV Cefoxitin completed today (Course: 05/03-05/10) - advance to regular diet today - Morphine 2mg IV q4h prn pain #Sepsis-resolved Patient met 2 out of 4 SIRS criteria - tachycardia and leukocytosis, along with known sigmoid abscess (removed in sigmoid colectomy 05/03) In ED patient was given IVF and Zosyn C. diff, urine, and blood cultures all resulted as negative - Lactic acid normalized - C. diff cultures negative - Blood cultures negative x2 - Monitor CBC/CMP daily #Normocytic Anemia With MCV in 80s, likely etiology being acute blood loss anemia secondary to patient's GI bleed. - Will continue to monitor Hgb daily - Transfuse if Hgb <7.0 - Hgb jyoti from 6.5 -> 9.2 after transfusing 2 units PRBCs on 05/05 #Pulmonary Embolism Patient was diagnosed with PE not certain when Patient is on Eliquis, however reported dark stool since starting the medication CT revealed right lower lobe pulmonary artery lobar and segmental thromboembolism -restarted home Eliquis 10 PO BID today #Electrolyte Imbalances Potassium initially 3.6 on arrival, decreased to 3.1 on morning of 04/29, increased over following days -continue to monitor #Rib Fractures Patient stated that he fell about 8 weeks ago from the tree, at that time CT chest revealed multiple rib fracture without flare chest with mild left hemithorax, patient was managed in [facility] - Morphine 2mg q4h prn pain Health maintenance: Disposition: Med surg, d/c tomorrow if tolerating diet Diet: Regular GI prophylaxis: Protonix 40mg IV qd DVT prophylaxis: SCDs Code: Full code Case disclosed with Attending Dr. Sims and my senior Dr. Archana Lora, PGY1 Attending Provider Attestation/Addendum I have discussed and was present for the essential components of the history, physical examination, diagnosis, and treatment plan with the resident. I agree with the patient's care as documented by the resident and amended herein by me. Damon Sims, DO. Although this document has been carefully reviewed, there may still be some phonetic and other typographical errors. These errors are purely grammatical due to imperfections in the software program and should not be construed in any way to compromise the substance of the patient's medical care during this visit.
[2024-05-10] MEDS: APIXABAN 2.5 MG TABLET 10 MG PO ×2 (14:45→20:27)
--- NOTE | 2024-05-10 14:56 | PC.SS ---
Rounding: Will DC possibly 05/11, plan to advance diet today
[2024-05-10 16:00] VITALS: BP 122/68; PULSE 80; RESP 19; TEMP 36.4; O2SAT 97
--- NOTE | 2024-05-10 17:42 | PD.IMPROG ---
Documentation for date of: 05/10/24 Subjective Subjective Interval history: Patient evaluated Activity in the colostomy bag Exam Vital Signs Temp Pulse Resp BP Pulse Ox O2 Del Method O2 Flow Rate 97.6 F 80 19 122/68 97 Room Air 0 05/10/24 16:00 05/10/24 16:00 05/10/24 16:00 05/10/24 16:00 05/10/24 16:00 05/10/24 16:00 05/10/24 04:00 Objective Labs 05/10/24 05:05 05/10/24 05:05 Labs: Laboratory Results - last 24 hr 05/10/24 05:05 WBC 10.4 RBC 3.33 L Hgb 9.1 L Hct 29.6 L MCV 89 MCH 27.3 MCHC 30.7 L RDW Std Deviation 59.7 H Plt Count 321 D Neut % (Auto) 70 Lymph % (Auto) 16 [place] % (Auto) 6 Eos % (Auto) 3 Baso % (Auto) 1 Neut # (Auto) 7.3 Lymph # (Auto) 1.6 [place] # (Auto) 0.6 Eos # (Auto) 0.4 Baso # (Auto) 0.1 Immature Gran # (Auto) 0.42 H Absolute Nucleated RBC 0.00 Immature Gran % 4 H Nucleated RBC % 0 Sodium 133 L Potassium 3.8 Chloride 101 Carbon Dioxide 27.6 Anion Gap 4 L BUN 9 Creatinine 0.4 L Estim Creat Clear Calc 173.2 eGFR > 60 BUN/Creatinine Ratio 23 H Glucose 134 H Calculated Osmolality 267 L Calcium 8.6 Corrected Calcium 9.4 Phosphorus 3.8 Magnesium 1.9 Total Bilirubin 0.4 AST 14 ALT 23 Alkaline Phosphatase 118 H Total Protein 5.7 Albumin 3.0 L Globulin 2.7 Albumin/Globulin Ratio 1.1 L Impressions Impression: # Sigmoid resection and diverting colostomy Continue current management Assessment & Plan A&P Narrative # Abnormal CT scan of the abdomen and pelvis showing focal narrowing of the colon in the region of sigmoid colon Since patient had a bowel movement Hopefully the patient in due course of time can take the GoLytely or it can be given through the NGT Although patient has not been able to tolerate either I will discuss the case with Dr. Hopper tomorrow morning Since the patient currently fully prepped with GoLytely He may need a diverting colostomy Thank you very much for the opportunity to participate in the care of this patient Time Spent With Patient Time: Total time spent is greater than 50% in coordination of care (as documented) at patient's floor/unit and/or counseling patient:
[2024-05-10] MEDS: SODIUM CHLOR ADDITIVE IV (17:45)
[2024-05-10] MEDS: AMINO ACID IV (17:45)
[2024-05-10] MEDS: [UNRECOGNIZED DRUG - OTHER] IV (17:45)
[2024-05-10] MEDS: FAT EMUL/OLIVE/SOY/PHOS 20% IV 500 ML 32 ML IV (17:46)
[2024-05-10 20:00] VITALS: BP 125/69; PULSE 87; RESP 18; TEMP 36.1; O2SAT 95
[2024-05-11] VITALS: BP 125/71; PULSE 85; RESP 18; TEMP 36.2; O2SAT 94
[2024-05-11] MEDS: HYDROcodone/APAP 5/325 TABLET 1 TAB PO ×3 (02:49→12:35)
[2024-05-11 04:00] VITALS: BP 127/73; PULSE 83; RESP 16; TEMP 36.2; O2SAT 96
[2024-05-11 06:00] VITALS: BMI 27.1
[2024-05-11 06:14] LABS: Basophils # (Auto) 0.1 Thou/mm3 (0.0-0.2); Basophils % (Auto) 1 % (0-2.5); Eosinophils # (Auto) 0.5 Thou/mm3 (0.0-0.5); Eosinophils % (Auto) 4 % (0-10); Hematocrit 29.7 % (41.0-53.0); Hemoglobin 10.6 g/dL (13.5-16.0); Immature Granulocytes % (Auto) 3 % (0-0); Immature Granulocytes Auto 0.36 Thou/mm3 (0.00-0.00); Lymphocytes # (Auto) 1.7 Thou/mm3 (1.0-4.8); Lymphocytes % (Auto) 16 % (10-50); Mean Corpuscular HGB Conc 35.7 g/dl (31.0-37.0); Mean Corpuscular Hemoglobin 31.2 pg (25.0-35.0); Mean Corpuscular Volume 87 fL (80-100); Monocytes # (Auto) 0.5 Thou/mm3 (0.0-0.8); Monocytes % (Auto) 5 % (0-12); Neutrophils # (Auto) 7.5 Thou/mm3 (1.8-7.7); Neutrophils % (Auto) 71 % (37-80); Nucleated Red Blood Cell % 0 /100 WBC (0); Platelet Count 343 Thou/mm3 (140-440); RDW Standard Deviation 57.4 fL (35.1-43.9); White Blood Count 10.6 Thou/mm3 (3.8-10.6)
[2024-05-11 07:31] VITALS: BP 127/74; PULSE 78; RESP 16; TEMP 36.2; O2SAT 96
[2024-05-11 07:50] LABS: Alanine Aminotransferase 25 U/L (10-49); Albumin/Globulin Ratio 1.1 (1.2-2.2); Alkaline Phosphatase 111 U/L (46-116); Anion Gap 10 (7-16); Aspartate Amino Transferase 25 U/L (0-34); BUN/Creatinine Ratio 20 Ratio (12-20); Bilirubin,Total 0.2 mg/dL (0.3-1.2); Blood Urea Nitrogen 8 mg/dL (9-23); Calcium 8.5 mg/dL (8.3-10.6); Calcium (Corrected) 9.3 mg/dL (8.5-10.1); Carbon Dioxide 24.4 mMol/L (20.0-31.0); Chloride 98 mMol/L (98-107); Creatinine (Component) 0.4 mg/dL (0.6-1.3); Estimated Creatinine Clearance 159.5 mL/min (>60); Globulin 2.8 gm/dL (2.3-3.5); Glucose 123 mg/dL (74-106); Osmolality,Calculated 263 (275-295); Potassium 3.7 mMol/L (3.4-5.1); Sodium 132 mMol/L (136-145); Total Protein 5.8 gm/dL (5.7-8.2); eGFR > 60 See Note
[2024-05-11] MEDS: TAMSULOSIN HCL 0.4 MG CAPSULE PO (08:02)
[2024-05-11] MEDS: DOCUSATE SOD 100 MG CAPSULE PO (08:02)
[2024-05-11] MEDS: PANTOPRAZOLE INJ 40 MG VIAL IVP (08:02)
[2024-05-11] MEDS: APIXABAN 2.5 MG TABLET 10 MG PO (08:02)
--- NOTE | 2024-05-11 11:08 | PC.NURSE ---
turned rate down to 35 mL/hr on TPN, preparing for discontinuing it
[2024-05-11 11:48] VITALS: BP 124/72; PULSE 74; RESP 16; TEMP 36.2; O2SAT 96
--- NOTE | 2024-05-11 12:54 | PD.SURPROG ---
Documentation for date of: 05/11/24 Subjective Subjective Narrative: No complaints, continuing to have colostomy function and tolerating regular diet, pain well controlled, anticoagulation resumed Exam Vital Signs Temp Pulse Resp BP Pulse Ox O2 Del Method O2 Flow Rate 97.1 F 74 16 124/72 96 Room Air 0 05/11/24 11:48 05/11/24 11:48 05/11/24 11:48 05/11/24 11:48 05/11/24 11:48 05/11/24 11:48 05/11/24 04:00 Constitutional Constitutional: no acute distress Routine Respiratory Exam Respiratory: Present no resp distress Routine Abdominal Exam Abdominal: Present soft and ostomy (colostomy pink with brown stool in appliance); Absent tenderness or distended Results Results: Laboratory Laboratory results: results reviewed Assessment & Plan Plan 68M s/p sigmoidectomy with end colostomy 05/03, recovering well with return of bowel function OK for dc when home care arranged/colostomy teaching completed Follow up as outpt with Dr Hopper Procedures Procedures Exploratory laparotomy, sigmoid colectomy with end colostomy
--- NOTE | 2024-05-11 13:17 | ESDS_ITS ---
<Statement entered by Stephany Major DO - 05/12/24 08:39> I, Stephany Major DO, attest that I was physically present for the torres portions of the service and evaluated the patient with the resident and I reviewed and discussed the case with the resident and agree with the resident's findings and plans of care as documented above Planned Discharge Date 05/11/24 DS: Providers Provider Date of admission: 04/29/24 04:25 Primary care physician: Ramon Young MD Admitting Provider: Jean Harris MD Attending Provider on Admission: Santos Sims DO Consults: 04/29/24 03:33 Consult to General Surgery Stat Comment: Consulting Provider: Jenn Hopper 05/01/24 10:57 Consult to Gastroenterology Routine Comment: sigmoid mass Consulting Provider: Trish Lopez 05/05/24 10:56 Referral Physical Therapy Stat Comment: Physician Instructions: Attending Provider on DC: Stephany Major DO Discharging Provider: Andrew Lamas MD DS: Diagnosis Problem List Completed Was Problem List Reviewed/Reconciled?: Yes Hospital Course Hospital Course Hospital course: Hospital Course: Mr. Onel Yoder is a 68-year-old male with past medical history of PE on Eliquis, presented to ED on 04/28/2024 with chief complaints of abdominal pain and distention that progressively was getting worse x1 day. Patient has been having frequent diarrhea for the last [address] abdo/pelvis, patient was found to have a large bowel obstruction, likely perforated sigmoid diverticulatis with contained abscess. He is s/p Exploratory laparotomy with sigmoid colectomy and end colostomy on 05/03/2024 with no complications. Patient has been slowly advanced and tolerating diet. Pain is well controlled and patient is ambulating. He is stable for discharge and cleared by surgery. Problems on this admission: 1. Sigmoid Abscess 2. Sigmoid Perforation 3. S/p sigmoid colectomy and end colostomy 4. Sepsis-resolved 5. Normocytic Anemia 6. Pulmonary Embolism 7. Electrolyte Imbalances 8. Rib Fractures Procedures: S/p Exploratory laparotomy with sigmoid colectomy and end colostomy on 05/03 with no complications Discharge instructions: - Follow up with PCP in 1 wee - Follow up with general surgery in 1 week from discharge - Continue colostomy care at home as instructed - Resume home medications, activity as tolerated - Return to ED if symptoms worsen We are grateful to be able to participate in Mr Yoder's care. We wish him the best. - Andrew Lamas MD Status at Discharge Cognitive/behavioral status at discharge: Stable and returned to baseline Time Spent with Patient Time attestation: Total time spent providing and/or coordinating discharge services: more than 50% Home Health Home Health Referral Orders: 05/11/24 10:51 Home Health Referral Routine Reason For Exam: colon resection Home-Bound The patient must either because of illness or injury, need the aid of supportive devices such as crutches, canes, wheelchairs, and walkers; the use of special transportation; or the assistance of another person in order to leave their place of residence; OR have a condition such that leaving his or her home is medically contraindicated. In addition, the patient also meets the following criteria: patient is normally unable to leave the home and leaving home requires considerable taxing effort. Addendum to Home Health Certification Practitioner's Certification: I certify that the patient has been under my care in the hospital and the care of attending physician (see below). We had a uhuu-pb-eisk encounter on (see date below). My clinical findings indicate that the patient is home bound per the above criteria and the Home Health Services noted in these orders are medically necessary. The primary reason for the hhsx-di-liss encounter is related to the fact that the patient requires home health services. Date Certifying Katl-at-Znul Physician Encounter: 05/29/24 Physician's Name who will Assume Oversight for Services: Ramon Young Physician's Phone No.who will Assume Oversight for Service: DRY WALL FINISHER - Community Resources: No PT to Evaluate: Yes PT to evaluate and provide a treatmnet plan to increase patient's mobility and strength. Wound Care: Yes Home Health RN - Wound Care Order: per nursing instructions IV Therapy: No RN Safety Evaluation: Yes RN to evaluate and create a plan of care that will produce positive outcomes. Palliative Treatment: No Palliative treatment and evaluate the need for hospice. Home Health Aide - Personal Care: Yes Home Health Aide to assist with any ADL's. Exam Vital Signs Temp Pulse Resp BP Pulse Ox O2 Del Method O2 Flow Rate 97.1 F 74 16 124/72 96 Room Air 0 05/11/24 11:48 05/11/24 11:48 05/11/24 11:48 05/11/24 11:48 05/11/24 11:48 05/11/24 11:48 05/11/24 04:00 Narrative Exam Constitutional Alert, oriented x3 and comfortable HEENT Vision grossly intact. Patent nares. Trachea midline. Respiratory Chest normal on inspection and clear to auscultation bilaterally. Cardiovascular S1 and S2 audible, RRR. No murmurs or carotid bruit. No gross JVD. Abdominal Soft and non tender to palpation. BS + S/p Exploratory laparotomy with sigmoid colectomy and end colostomy Genitourinary No bladder tenderness, no flank pain. Normal to palpation. Musculoskeletal Extremities tone within normal limits. No LE edema. Neurological CN II - XII grossly intact. Extremity motor and sensation grossly intact. Skin Warm, dry and intact. No apparent lesions. Psychiatric Patient has a good affect, is cooperative. Discharge Plan Plan Patient Disposition: Home w/HOME HEALTH Patient condition on transfer: Stable Prescriptions/Referrals Prescriptions/Med Rec: New Eliquis DVT-PE Treat 30D Start 5 mg (74 tabs) tablets,dose pack 5 mg PO BID Qty: 74 0RF hydrocodone-acetaminophen 5-325 mg tablet 1 tab PO Q8H MDD 20 PRN (Reason: pain) 7 Days Qty: 20 0RF zinc sulfate 50 mg zinc (220 mg) Capsule 220 mg PO QDAY 30 Days Qty: 132 0RF ascorbic acid (vitamin C) [Vitamin C] 250 mg Tablet 500 mg PO BID 30 Days Qty: 120 0RF Continued trazodone 50 mg tablet 50 mg PO HS PRN (Reason: Insomnia) Patient Comments: TAKE 1 TO 2 TABLETS BY MOUTH DAILY AT BEDTIME NEEDED simvastatin 40 mg tablet 40 mg PO HS Patient Comments: TAKE 1 TABLET BY MOUTH EVERY NIGHT AT BEDTIME Discontinued pantoprazole 40 mg tablet,delayed release (DR/EC) 40 mg PO QDAY Patient Comments: TAKE 1 TABLET BY MOUTH DAILY No Action Eliquis DVT-PE Treat 30D Start 5 mg (74 tabs) tablets,dose pack 10 mg PO BID Referrals: Ramon Young MD [Primary Care Provider] - Patient/Caregiver Discharge Instructions Other Discharge Activity Instructions:: - Follow up with PCP in 1 wee - Follow up with general surgery in 1 week from discharge - Continue colostomy care at home as instructed - Resume home medications, activity as tolerated - Return to ED if symptoms worsen Education Materials: Colostomy: Adjusting to Your Body, Colostomy Irrigating Your Colostomy, Preventing Surgical Site Infections Print Language: Macedonian Stand Alone Forms: Zarina Award Info., Patient Portal Info Letter Discharge Order Discharge Orders: Discharge (Routine); Ordered 05/11/24 Ordered By: Andrew Lamas Quality Discharge Quality Measures VTE prophylaxis
--- NOTE | 2024-05-12 08:18 | PC.CM ---
Addendum entered by Elmira Alvarez RN 05/12/24 11:17: [facility] accepted the pt. Booked them. Resume of care date is 05/13/24. Original Note: HH referral sent to [facility] on [address]. Awaiting responses. Pending Start of care date.
[2024-05-14 07:08] LABS: Osmolality, Urine* 380 mOsm/kg (50-1200)
== END 2024-05-11 14:45 | disposition home health service (06) | DRG 853 ==
LOC: SERX 04-29 04:14 → SERHOLD 04-29 04:48 → S3SX 04-29 07:59
PROVIDERS: Student in an Organized Health Care Education/Training Program; Surgery; Admitting Provider Internal Medicine; Emergency Provider Emergency Medicine; PCP Family Medicine; Visit Provider Student in an Organized Health Care Education/Training Program
PROC: 0DTE4ZZ Resection of Large Intestine, Percutaneous Endoscopic Approach (ICD-10-PCS; principal; 2024-05-03 11:00)
DX: A41.9 Sepsis, unspecified organism (principal); K57.21 Diverticulitis of large intestine with perforation and abscess with bleeding; K65.1 Peritoneal abscess; D62 Acute posthemorrhagic anemia; K64.8 Other hemorrhoids; I10 Essential (primary) hypertension; K42.9 Umbilical hernia without obstruction or gangrene; E87.6 Hypokalemia; S22.41XD Multiple fractures of ribs, right side, subsequent encounter for fracture with routine healing; W19.XXXD Unspecified fall, subsequent encounter; Z87.891 Personal history of nicotine dependence; Z86.711 Personal history of pulmonary embolism; Z79.01 Long term (current) use of anticoagulants
CPT/HCPCS: 36415; 71045; 74018; 74177; 80048; 80053; 80061; 81001; 82270; 82570; 83605; 83615; 83735; 83880; 83935; 84100; 84300; 84443; 84478; 84484; 85014; 85018; 85025; 85610; 85730; 86850; 86900; 86901; 86923; 87040; 87086; 93005; 93225; 96365; 96367; 97162; 99291; A4216; A4649; B4185; C1751; C1894; J0131; J0694; J0744; J1642; J1643; J1644; J1885; J1940; J2270; J2371; J2405; J2470; J2543; J2704; J2765; J3010; J3475; J3480; J3490; J7030; J7050; J7131; P9016; Q9967; A9270; J1836

== ENCOUNTER 2024-09-03 10:45 | Day surgery (SDC) | payer MEDICARE, SELFPAY ==
[2024-09-02 13:09] VITALS: BMI 29.0
[2024-09-03] VITALS (9 sets, daily range): BP systolic 130–164; BP diastolic 72–96; PULSE 68–87; RESP 17–20; TEMP 36.4–36.8; O2SAT 92–100; BMI 30.3
[2024-09-03] MEDS: SODIUM CHLORIDE 0.9% 500 ML 500 ML 20 ML IV (12:32)
[2024-09-03] MEDS: DiphenhydrAMINE INJ 50 MG/ML VIAL 25 MG IV (12:36)
[2024-09-03] MEDS: MIDAZOLAM INJ 1 MG/ML VIAL 2 ML (ASD USE ONLY) 2 MG IV (12:41)
[2024-09-03] MEDS: fentaNYL CIT INJ 50 mCg/ML AMP 2ML (ASD USE ONLY) IV (12:41)
--- NOTE | 2024-09-03 13:04 | PC.NURSE ---
colostomy passing flatus, some drainage s/p colonoscopy, protected with towel.
--- NOTE | 2024-09-03 13:54 | PC.NURSE ---
Patient requested spouse apply new colostomy bag and wafer. Spouse applied, ostomy clean and intact.
== END 2024-09-03 13:40 | disposition home or self-care (01) ==
PROVIDERS: PCP Family Medicine; Referring Provider Specialist; Visit Provider Specialist
PROC: 0DBE8ZX Excision of Large Intestine, Via Natural or Artificial Opening Endoscopic, Diagnostic (ICD-10-PCS; CPT 45380; principal; 2024-09-03 11:45)
DX: K64.9 Unspecified hemorrhoids (principal)
CPT/HCPCS: 45378; J1200; J2250; J3010; J7040

== ENCOUNTER 2024-10-17 09:05 | Inpatient (IN) | payer MEDICARE, SELFPAY ==
--- NOTE | 2024-10-16 07:00 | EKG_ITS ---
[facility] Test Date: 2024-10-16 Pat Name: ARI MEJAI Department: Room: - Gender: Male Tie Man: ESTEE : 1955 Requested By: Jenn Hopper Order Number: [id number] Reading MD: Jenn Hopper Measurements Intervals [place] Rate: 68 P: 35 NM: 173 QRS: 28 QRSD: 95 T: 30 QT: 400 QTc: 425 Interpretive Statements SINUS RHYTHM Compared to ECG 04/28/2024 22:48:28 Sinus tachycardia no longer present T-wave abnormality no longer present /[id number]
[2024-10-16 07:27] VITALS: BMI 32.7
[2024-10-16 09:08] LABS: Basophils # (Auto) 0.1 Thou/mm3 (0.0-0.2); Basophils % (Auto) 1 % (0-2.5); Eosinophils # (Auto) 0.2 Thou/mm3 (0.0-0.5); Eosinophils % (Auto) 3 % (0-10); Hematocrit 39.7 % (41.0-53.0); Hemoglobin 12.5 g/dL (13.5-16.0); Immature Granulocytes % (Auto) 0 % (0-0); Immature Granulocytes Auto 0.01 Thou/mm3 (0.00-0.00); Lymphocytes # (Auto) 2.2 Thou/mm3 (1.0-4.8); Lymphocytes % (Auto) 33 % (10-50); Mean Corpuscular HGB Conc 31.5 g/dl (31.0-37.0); Mean Corpuscular Volume 76 fL (80-100); Monocytes # (Auto) 0.7 Thou/mm3 (0.0-0.8); Monocytes % (Auto) 11 % (0-12); Neutrophils # (Auto) 3.6 Thou/mm3 (1.8-7.7); Neutrophils % (Auto) 52 % (37-80); Nucleated Red Blood Cell % 0 /100 WBC (0); Platelet Count 268 Thou/mm3 (140-440); RDW Standard Deviation 44.1 fL (35.1-43.9); Red Blood Count 5.21 Miln/mm3 (4.50-5.90); White Blood Count 6.9 Thou/mm3 (3.8-10.6)
[2024-10-16 09:32] LABS: Alanine Aminotransferase 28 U/L (10-49); Albumin, Serum 4.5 gm/dL (3.4-4.8); Albumin/Globulin Ratio 1.5 (1.2-2.2); Alkaline Phosphatase 75 U/L (46-116); Anion Gap 8 (7-16); Aspartate Amino Transferase 26 U/L (0-34); BUN/Creatinine Ratio 19 Ratio (12-20); Bilirubin,Total 1.1 mg/dL (0.3-1.2); Blood Urea Nitrogen 19 mg/dL (9-23); Calcium 9.2 mg/dL (8.3-10.6); Calcium (Corrected) 9.2 mg/dL (8.5-10.1); Carbon Dioxide 25.1 mMol/L (20.0-31.0); Chloride 107 mMol/L (98-107); Estimated Creatinine Clearance 75.1 mL/min (>60); Globulin 3.1 gm/dL (2.3-3.5); Glucose 120 mg/dL (74-106); Osmolality,Calculated 282 (275-295); Potassium 4.1 mMol/L (3.4-5.1); Sodium 140 mMol/L (136-145); Total Protein 7.6 gm/dL (5.7-8.2); eGFR > 60 See Note
[2024-10-17] VITALS (15 sets, daily range): BP systolic 130–169; BP diastolic 78–102; PULSE 64–78; RESP 12–23; TEMP 36.3–37; O2SAT 93–99; BMI 31.8
--- NOTE | 2024-10-17 14:31 | ESOP_ITS ---
Date of Procedure 10/17/24 Pre Op Diagnosis History of perforated diverticulitis status post sigmoid colectomy with colostomy Post Op Diagnosis History of perforated diverticulitis status post sigmoid colectomy with colostomy Procedure Exploratory laparotomy, reversal of colostomy Findings Moderate amount of adhesions from previous operation, small parastomal hernia Procedure Description Patient is brought to the operating room in supine position. After administration of general endotracheal anesthesia, patient was placed in low lithotomy position. The colostomy site was closed with a pursestring suture using 0 Prolene. Patient's abdomen and perineum prepped and draped in standard surgical manner. A laparotomy incision was made over his previous scar and dissection was deepened into soft tissue. The abdominal cavity was entered. Patient was noted to have moderate amounts of adhesions from previous operation that were lysed. The small bowel was then retracted cephalad into the right upper quadrant. A Bookwalter retractor was placed for adequate exposure. Multiple loops of small bowel were adherent to the rectal stump, adhesions were divided and the loops of small bowel were freed. The Prolene sutures that were placed at the previous operation at the rectal stump were then identified and the proximal aspect of rectal stump was mobilized for the anastomosis. At this point I turned my attention to the colostomy site. An elliptical incision was made around the colostomy site and the colostomy was circumferentially dissected off surrounding tissue. Patient was noted to have a small parastomal hernia that was not incarcerated. The hernia sac was circumferentially dissected out surrounding tissue and excised. The colostomy site was then reduced. The end of colostomy was divided with GIOVANA stapling device. The end of descending colon was reaching the pelvis without any tension. The end of descending colon was opened, a pursestring suture using 2-0 Prolene applied. The anvil portion of the EEA stapling device was placed at the end of descending colon and the pursestring suture was tightened. Patient's rectum and anal canal were sequentially dilated. The EEA stapling device was placed through the rectum and was brought out just anterior to the rectal stump. The EEA stapling device was opened and connected to the anvil, care was taken to make sure orientation was appropriate without tension or any kinking. The stapling device was closed and fired. 2 well-formed donuts were retrieved. The integrity of the anastomosis was then checked by doing an air leak test. A rigid proctoscope was placed through the anal canal and air was insufflated. The pelvis was filled with warm saline, there was no evidence of any air leak assuring anastomosis was airtight. Air was removed and the rigid proctoscope was removed. Using 3-0 silk suture circumferential Lembert sutures were placed around the anastomosis to further secure the anastomosis. Abdomen and pelvis copiously and thoroughly washed and irrigated, all the fluids were suctioned and the suction fluid returned clear. Hemostasis was adequate and satisfactory. I then turned my attention to closure of the posterior layer of the colostomy site. The peritoneum and posterior abdominal fascia opening of the colostomy site were closed with interrupted [id number] sutures using 0 Prolene. The laparotomy incision was then closed. The fascia was reapproximated with interrupted sutures using 0 PDS as well as interrupted sutures with #1 Vicryl. The wound was washed and the skin was closed with lyndsay. The anterior abdominal fascial defect of colostomy site was then closed with interrupted [id number] sutures using 0 Prolene. The wound was washed and the skin was partially closed with lyndsay. Telfa ashok were placed between the stapler to act as a drain. Both incisions were covered with dry dressings and abdominal binder applied. Patient tolerated procedure well. He was placed in supine position and extubated. He was breathing spontaneously and without difficulty and was transferred to postanesthesia care in stable condition. Instruments, needles and sponge counts were reported to be correct x 2 Anesthesia GETA and local Pathology / specimen Other (Colostomy site) Estimated Blood Loss 25 Condition Stable Disposition PACU Surgeon Jenn Hopper MD Surgical Staff Operation Date: 10/17/24 11:00 Case Staff WEAVER AXMINSTER: Mariam Zamudio WEAVER AXMINSTER: Khurram Abraham RNfrench tutor: Katy Wright
--- NOTE | 2024-10-17 14:44 | SUR.PHASEI ---
pt arrived to PACU via bed with oral airway present, breathing unlabored, dressing to abdomen clean, dry, and intact with abdominal binder in place, report from Christiano JEFFERSON, Mariam DAVIES, and Khurram HUFF
--- NOTE | 2024-10-17 15:15 | SUR.PHASEI ---
pt tolerating ice chips without difficulty swallowing or n/v
[2024-10-17] MEDS: fentaNYL CIT INJ 50 mCg/ML AMP 2ML IV ×2 (15:17→16:22)
[2024-10-17] MEDS: KCL 20 mEq/L in D5-1/2NS 20 MEQ/1,000 ML BAG 60 MEQ IV (16:24)
--- NOTE | 2024-10-17 16:56 | SUR.PHASEI ---
Report to Dilcia JEFFERSON
--- NOTE | 2024-10-17 17:00 | SUR.PHASEI ---
1700: received report from LI Avalos. pt alert and oriented to name, place and time. dressing to mid abdomen clean, dry and intact with abdominal binder in place. dixon cath in place with yellow color urine, no odor. no s/s of resp. or distress or discomfort. denies any pain or discomfort.
--- NOTE | 2024-10-17 17:13 | SUR.PHASEI ---
1713: given report to LI Mart.
--- NOTE | 2024-10-17 17:30 | SUR.PHASEI ---
1730: transfer patient to room 381 via bed. pt alert and oriented to name, place and time. at the bedside. dressing to mid abdomen clean, dry and intact with abdominal binder in place. dixon cath in place with yellow color urine, no odor. no s/s of resp. or distress or discomfort. denies any pain or discomfort.
[2024-10-17] MEDS: CEFOXITIN 2 GM in SODIUM CHLORIDE 0.9% (Popper) 50 ML IV ×2 (18:04→23:57)
[2024-10-17] MEDS: PANTOPRAZOLE INJ 40 MG VIAL IVP (18:05)
[2024-10-17] MEDS: ACETAMINOPHEN IVPB 1,000 MG/100 ML VIAL 250 MG IV (18:30)
[2024-10-17] MEDS: DOCUSATE SOD 100 MG CAPSULE PO (20:25)
[2024-10-17] MEDS: ATORVASTATIN CALCIUM 20 MG TABLET PO (20:25)
[2024-10-17] MEDS: HYDROmorphone INJ 2 MG/ML VIAL 1 MG IVP (20:41)
[2024-10-17] MEDS: hydrOXYzine HCL 25 MG TABLET PO (22:20)
[2024-10-18] VITALS (8 sets, daily range): BP systolic 136–159; BP diastolic 61–86; PULSE 67–88; RESP 16–94; TEMP 36.2–37; O2SAT 92–95
[2024-10-18] MEDS: ACETAMINOPHEN IVPB 1,000 MG/100 ML VIAL 250 MG IV ×3 (00:59→14:30)
[2024-10-18] MEDS: CEFOXITIN 2 GM in SODIUM CHLORIDE 0.9% (Popper) 50 ML IV ×2 (05:20→13:30)
[2024-10-18] MEDS: MONTELUKAST SODIUM 10 MG TABLET PO (08:44)
[2024-10-18] MEDS: HYDROmorphone INJ 2 MG/ML VIAL 1 MG IVP ×3 (08:44→21:21)
[2024-10-18] MEDS: ZINC SULFATE 220 MG CAPSULE PO (08:44)
[2024-10-18] MEDS: ENOXAPARIN SOD INJ 40 MG/0.4 ML SYRINGE SC (08:44)
[2024-10-18] MEDS: GABAPENTIN 300 MG CAPSULE PO (08:44)
[2024-10-18] MEDS: DOCUSATE SOD 100 MG CAPSULE PO ×2 (08:44→21:15)
[2024-10-18] MEDS: ASCORBIC ACID 250 MG TABLET 500 MG PO ×2 (08:54→21:15)
[2024-10-18] MEDS: PANTOPRAZOLE INJ 40 MG VIAL IVP (08:54)
--- NOTE | 2024-10-18 10:10 | PC.NURSE ---
Dr. Hopper made aware pt take Eliquis at home. No new orders given.
[2024-10-18] MEDS: KCL 20 mEq/L in D5-1/2NS 20 MEQ/1,000 ML BAG 60 MEQ IV (11:48)
--- NOTE | 2024-10-18 11:50 | PD.SURPROG ---
Documentation for date of: 10/18/24 Subjective Subjective Narrative: Patient is seen and examined. Pain is controlled. She denies nausea or vomiting Exam Vital Signs Temp Pulse Resp BP Pulse Ox O2 Del Method O2 Flow Rate 97.7 F 68 20 145/76 H 94 L Room Air 1 10/18/24 08:00 10/18/24 11:18 10/18/24 11:18 10/18/24 08:00 10/18/24 08:00 10/18/24 08:00 10/18/24 00:00 Constitutional Constitutional: no acute distress Routine Abdominal Exam Comments: Abdomen is soft and mildly distended. Incisions with dressings clean, dry and intact Assessment & Plan Assessment Additional comments: Postop day #1 status post exploratory laparotomy, lysis of adhesions and reversal of colostomy Plan DC Méndez catheter. Antibiotic will be discontinued today. Increase ambulation and use incentive spirometer. Procedures Procedures Exploratory laparotomy, reversal of colostomy
--- NOTE | 2024-10-18 12:01 | PC.NURSE ---
dixon catheter removed, patient up to use toilet, unmeasured void, assisting, pt tolerated well. Pt up to chair. IS at bedside instructed pt on use and he verbalize understanding.
[2024-10-18] MEDS: ATORVASTATIN CALCIUM 20 MG TABLET PO (21:15)
[2024-10-18] MEDS: hydrOXYzine HCL 25 MG TABLET PO (22:17)
[2024-10-19] VITALS (7 sets, daily range): BP systolic 138–161; BP diastolic 72–80; PULSE 74–85; RESP 17–93; TEMP 36.4–36.9; O2SAT 92–95
[2024-10-19] MEDS: KCL 20 mEq/L in D5-1/2NS 20 MEQ/1,000 ML BAG 60 MEQ IV (02:23)
[2024-10-19] MEDS: HYDROmorphone INJ 2 MG/ML VIAL 1 MG IVP ×4 (02:24→21:45)
[2024-10-19 06:17] LABS: Basophils # (Auto) 0.1 Thou/mm3 (0.0-0.2); Basophils % (Auto) 1 % (0-2.5); Eosinophils # (Auto) 0.2 Thou/mm3 (0.0-0.5); Eosinophils % (Auto) 2 % (0-10); Hematocrit 37.8 % (41.0-53.0); Hemoglobin 11.9 g/dL (13.5-16.0); Immature Granulocytes % (Auto) 0 % (0-0); Immature Granulocytes Auto 0.04 Thou/mm3 (0.00-0.00); Lymphocytes # (Auto) 2.4 Thou/mm3 (1.0-4.8); Lymphocytes % (Auto) 19 % (10-50); Mean Corpuscular HGB Conc 31.5 g/dl (31.0-37.0); Mean Corpuscular Hemoglobin 24.6 pg (25.0-35.0); Mean Corpuscular Volume 78 fL (80-100); Monocytes # (Auto) 1.7 Thou/mm3 (0.0-0.8); Monocytes % (Auto) 14 % (0-12); Neutrophils % (Auto) 64 % (37-80); Nucleated Red Blood Cell % 0 /100 WBC (0); Platelet Count 245 Thou/mm3 (140-440); RDW Standard Deviation 46.7 fL (35.1-43.9); Red Blood Count 4.83 Miln/mm3 (4.50-5.90); White Blood Count 12.5 Thou/mm3 (3.8-10.6)
[2024-10-19 06:47] LABS: Albumin, Serum 3.9 gm/dL (3.4-4.8); Anion Gap 7 (7-16); BUN/Creatinine Ratio 17 Ratio (12-20); Blood Urea Nitrogen 15 mg/dL (9-23); Calcium 8.3 mg/dL (8.3-10.6); Calcium (Corrected) 8.4 mg/dL (8.5-10.1); Chloride 106 mMol/L (98-107); Creatinine (Component) 0.9 mg/dL (0.6-1.3); Estimated Creatinine Clearance 82.4 mL/min (>60); Glucose 123 mg/dL (74-106); Osmolality,Calculated 279 (275-295); Phosphorous 2.6 mg/dL (2.4-5.1); Potassium 3.9 mMol/L (3.4-5.1); Sodium 139 mMol/L (136-145); eGFR > 60 See Note
[2024-10-19] MEDS: GABAPENTIN 300 MG CAPSULE PO (08:26)
[2024-10-19] MEDS: ENOXAPARIN SOD INJ 40 MG/0.4 ML SYRINGE SC ×2 (08:26→21:44)
[2024-10-19] MEDS: ASCORBIC ACID 250 MG TABLET 500 MG PO ×2 (08:26→21:44)
[2024-10-19] MEDS: PANTOPRAZOLE INJ 40 MG VIAL IVP (08:26)
[2024-10-19] MEDS: DOCUSATE SOD 100 MG CAPSULE PO ×2 (08:26→21:45)
[2024-10-19] MEDS: ZINC SULFATE 220 MG CAPSULE PO (08:26)
[2024-10-19] MEDS: MONTELUKAST SODIUM 10 MG TABLET PO (08:27)
--- NOTE | 2024-10-19 10:42 | PC.NURSE ---
pt ambulated in [place] with RN, pt tolerated it well
--- NOTE | 2024-10-19 12:44 | PD.SURPROG ---
Documentation for date of: 10/19/24 Subjective Subjective Narrative: Pt is seen and examined. Pain is controlled. He denies nausea or vomiting. He has not passed flatus or bowel movement yet Exam Vital Signs Temp Pulse Resp BP Pulse Ox O2 Del Method O2 Flow Rate 97.7 F 77 18 140/80 H 92 L Room Air 1 10/19/24 08:00 10/19/24 08:00 10/19/24 08:00 10/19/24 08:00 10/19/24 08:00 10/19/24 08:00 10/18/24 00:00 Constitutional Constitutional: no acute distress Routine Abdominal Exam Comments: Abdomen is soft and mildly distended. He has hypoactive bowel sounds. Incision with dressings clean, dry and intact Assessment & Plan Assessment Additional comments: Postop day #2 status post exploratory laparotomy, lysis of adhesions and reversal of colostomy Plan Start clear liquids. Procedures Procedures Exploratory laparotomy, reversal of colostomy
--- NOTE | 2024-10-19 20:07 | PC.NURSE ---
Pt abmulated in hallway to [facility], c/o abd pain, encouraged to walk more, pt stated will walk more in AM.
[2024-10-19] MEDS: hydrOXYzine HCL 25 MG TABLET PO (21:45)
[2024-10-19] MEDS: ATORVASTATIN CALCIUM 20 MG TABLET PO (21:45)
[2024-10-20] VITALS (8 sets, daily range): BP systolic 138–161; BP diastolic 79–85; PULSE 74–88; RESP 16–97; TEMP 36.3–37.3; O2SAT 92–94; BMI 31.8
[2024-10-20] MEDS: HYDROmorphone INJ 2 MG/ML VIAL 1 MG IVP ×6 (00:53→21:34)
--- NOTE | 2024-10-20 08:11 | PD.SURPROG ---
Documentation for date of: 10/20/24 Subjective Subjective Narrative: Patient is seen and examined. He is resting comfortably. He is voiding and ambulating without difficulty. He is tolerating clear liquids without nausea or vomiting. He has not had bowel movement yet Exam Vital Signs Temp Pulse Resp BP Pulse Ox O2 Del Method O2 Flow Rate 97.5 F 74 17 138/79 H 93 L Room Air 1 10/20/24 04:00 10/20/24 04:00 10/20/24 04:00 10/20/24 04:00 10/20/24 04:00 10/20/24 04:00 10/18/24 00:00 Constitutional Constitutional: no acute distress Routine Abdominal Exam Comments: Abdomen is soft and very minimally distended. He has active bowel sounds. Incisions with dressings clean, dry and intact. Assessment & Plan Assessment Additional comments: Postop day #3 status post exploratory laparotomy with lysis of adhesions and reversal of colostomy Plan Continue clear liquids. Use incentive spirometer and increase ambulation Procedures Procedures Exploratory laparotomy, reversal of colostomy
[2024-10-20] MEDS: ENOXAPARIN SOD INJ 40 MG/0.4 ML SYRINGE SC ×2 (08:15→20:32)
[2024-10-20] MEDS: DOCUSATE SOD 100 MG CAPSULE PO ×2 (08:16→20:32)
[2024-10-20] MEDS: GABAPENTIN 300 MG CAPSULE PO (08:16)
[2024-10-20] MEDS: ZINC SULFATE 220 MG CAPSULE PO (08:16)
[2024-10-20] MEDS: MONTELUKAST SODIUM 10 MG TABLET PO (08:16)
[2024-10-20] MEDS: PANTOPRAZOLE INJ 40 MG VIAL IVP (08:16)
[2024-10-20] MEDS: ASCORBIC ACID 250 MG TABLET 500 MG PO ×2 (08:23→20:31)
--- NOTE | 2024-10-20 09:57 | PC.SS ---
Patient Onel Yoder is a 68 yr old male admitted for [place] LAP [id number]. SS met with pt at bedside to complete initial assessment and verify demographic information. Pt is from home [address], where he lives with his Carlene Yoder, who patient identifies as his surrogate decision maker [phone]. Pt reports he does not utilize any source of DME to assist with ambulation. Patient reports he is able to complete all ADL's independently. Pt does not require supplemental O2 at home. Patient's PCP is Dr. Ramon Young and pharmacy of choice is [facility]. Patient will return home at time of discharge, will provide transportation. Patient has Advance Directive in place. Discharge plan: Home Next of Kin: , Carlene Yoder [phone]
--- NOTE | 2024-10-20 11:07 | PC.SS ---
SS follow up note; Patient will discharge home once medically cleared.
[2024-10-20] MEDS: hydrOXYzine HCL 25 MG TABLET PO (20:31)
[2024-10-20] MEDS: ATORVASTATIN CALCIUM 20 MG TABLET PO (20:31)
[2024-10-21] VITALS (7 sets, daily range): BP systolic 136–163; BP diastolic 54–86; PULSE 77–86; RESP 16–96; TEMP 36.1–36.6; O2SAT 92–96
[2024-10-21] MEDS: HYDROmorphone INJ 2 MG/ML VIAL 1 MG IVP ×2 (01:57→06:36)
[2024-10-21] MEDS: PANTOPRAZOLE 40 MG TABLET PO (09:00)
--- NOTE | 2024-10-21 09:21 | PD.SURPROG ---
Documentation for date of: 10/21/24 Subjective Subjective Narrative: Patient is seen and examined. He is tolerating clear liquids without nausea or vomiting. He started passing flatus but no bowel movement yet Exam Vital Signs Temp Pulse Resp BP Pulse Ox O2 Del Method O2 Flow Rate 97.7 F 77 18 163/86 H 94 L Room Air 1 10/21/24 07:45 10/21/24 07:45 10/21/24 07:45 10/21/24 07:45 10/21/24 07:45 10/21/24 07:45 10/18/24 00:00 Constitutional Constitutional: no acute distress Routine Abdominal Exam Comments: Abdomen is soft and mildly distended. He has active bowel sounds. Incisions clean, dry and intact Assessment & Plan Assessment Additional comments: Postop day #4 status post exploratory laparotomy with lysis of adhesions and reversal of colostomy Plan Advance to full liquids and nutritional supplements. Continue to ambulate and use incentive spirometer. Procedures Procedures Exploratory laparotomy, reversal of colostomy
[2024-10-21] MEDS: ENOXAPARIN SOD INJ 40 MG/0.4 ML SYRINGE SC ×2 (09:36→20:20)
[2024-10-21] MEDS: MONTELUKAST SODIUM 10 MG TABLET PO (09:36)
[2024-10-21] MEDS: ASCORBIC ACID 250 MG TABLET 500 MG PO ×2 (09:36→20:20)
[2024-10-21] MEDS: ZINC SULFATE 220 MG CAPSULE PO (09:36)
[2024-10-21] MEDS: DOCUSATE SOD 100 MG CAPSULE PO ×2 (09:36→20:21)
[2024-10-21] MEDS: GABAPENTIN 300 MG CAPSULE PO (09:36)
--- NOTE | 2024-10-21 10:42 | CHAP ---
Patient was visited by a Spiritual Care Volunteer on 10/21/2024 between 0900 and 0920 and received comfort, encouragement and/or prayer.
[2024-10-21] MEDS: HYDROcodone/APAP 5/325 TABLET 1 TAB PO ×3 (11:27→23:08)
[2024-10-21] MEDS: hydrOXYzine HCL 25 MG TABLET PO (20:21)
[2024-10-21] MEDS: ATORVASTATIN CALCIUM 20 MG TABLET PO (20:21)
[2024-10-22] VITALS (8 sets, daily range): BP systolic 129–157; BP diastolic 72–81; PULSE 71–82; RESP 16–99; TEMP 36.2–37; O2SAT 92–95
[2024-10-22] MEDS: HYDROcodone/APAP 5/325 TABLET 1 TAB PO ×4 (04:51→22:33)
[2024-10-22 05:44] LABS: Basophils # (Auto) 0.1 Thou/mm3 (0.0-0.2); Basophils % (Auto) 1 % (0-2.5); Eosinophils # (Auto) 0.3 Thou/mm3 (0.0-0.5); Eosinophils % (Auto) 4 % (0-10); Hematocrit 35.3 % (41.0-53.0); Hemoglobin 11.1 g/dL (13.5-16.0); Immature Granulocytes % (Auto) 0 % (0-0); Immature Granulocytes Auto 0.02 Thou/mm3 (0.00-0.00); Lymphocytes # (Auto) 1.8 Thou/mm3 (1.0-4.8); Lymphocytes % (Auto) 22 % (10-50); Mean Corpuscular HGB Conc 31.4 g/dl (31.0-37.0); Mean Corpuscular Hemoglobin 24.2 pg (25.0-35.0); Mean Corpuscular Volume 77 fL (80-100); Monocytes % (Auto) 12 % (0-12); Neutrophils # (Auto) 5.1 Thou/mm3 (1.8-7.7); Neutrophils % (Auto) 62 % (37-80); Nucleated Red Blood Cell % 0 /100 WBC (0); Platelet Count 249 Thou/mm3 (140-440); RDW Standard Deviation 46.2 fL (35.1-43.9); Red Blood Count 4.59 Miln/mm3 (4.50-5.90); White Blood Count 8.3 Thou/mm3 (3.8-10.6)
[2024-10-22 06:02] LABS: Albumin, Serum 3.8 gm/dL (3.4-4.8); Anion Gap 10 (7-16); BUN/Creatinine Ratio 12 Ratio (12-20); Blood Urea Nitrogen 11 mg/dL (9-23); Calcium 8.6 mg/dL (8.3-10.6); Calcium (Corrected) 8.8 mg/dL (8.5-10.1); Carbon Dioxide 29.4 mMol/L (20.0-31.0); Chloride 102 mMol/L (98-107); Creatinine (Component) 0.9 mg/dL (0.6-1.3); Estimated Creatinine Clearance 82.4 mL/min (>60); Glucose 109 mg/dL (74-106); Osmolality,Calculated 281 (275-295); Phosphorous 3.5 mg/dL (2.4-5.1); Sodium 141 mMol/L (136-145); eGFR > 60 See Note
[2024-10-22] MEDS: ZINC SULFATE 220 MG CAPSULE PO (08:44)
[2024-10-22] MEDS: ASCORBIC ACID 250 MG TABLET 500 MG PO ×2 (08:44→20:31)
[2024-10-22] MEDS: DOCUSATE SOD 100 MG CAPSULE PO ×2 (08:44→20:32)
[2024-10-22] MEDS: GABAPENTIN 300 MG CAPSULE PO (08:45)
[2024-10-22] MEDS: ENOXAPARIN SOD INJ 40 MG/0.4 ML SYRINGE SC ×2 (08:45→20:32)
[2024-10-22] MEDS: MONTELUKAST SODIUM 10 MG TABLET PO (08:45)
[2024-10-22] MEDS: PANTOPRAZOLE 40 MG TABLET PO (08:45)
--- NOTE | 2024-10-22 11:38 | PC.SS ---
SS follow up note; Patient is tolerating Diet, however has not had bowl movement. Patient will return home once he is medically cleared.
[2024-10-22] MEDS: HYDROmorphone INJ 2 MG/ML VIAL 1 MG IVP ×2 (11:45→19:17)
--- NOTE | 2024-10-22 11:57 | PD.SURPROG ---
Documentation for date of: 10/22/24 Subjective Subjective Narrative: Patient was seen and examined. His pain is improving. He is tolerating soft diet. He continues to pass flatus. He states he had a small bowel movement yesterday he has not had bowel movements a day Exam Vital Signs Temp Pulse Resp BP Pulse Ox O2 Del Method O2 Flow Rate 97.6 F 71 20 148/81 H 95 Room Air 1 10/22/24 07:58 10/22/24 07:58 10/22/24 07:58 10/22/24 07:58 10/22/24 07:58 10/22/24 07:58 10/18/24 00:00 Constitutional Constitutional: no acute distress Routine Abdominal Exam Comments: Abdomen is soft and very minimally distended. Incisions are clean, dry and intact Assessment & Plan Assessment Additional comments: Postop day #5 status post exploratory laparotomy with lysis of adhesions and reversal of colostomy Plan Advance diet. Patient will be discharged when he have bowel movements Procedures Procedures Exploratory laparotomy, reversal of colostomy
[2024-10-22] MEDS: ATORVASTATIN CALCIUM 20 MG TABLET PO (20:31)
[2024-10-22] MEDS: hydrOXYzine HCL 25 MG TABLET PO (20:31)
[2024-10-23] VITALS: BP 149/80; PULSE 76; RESP 17; TEMP 36.7; O2SAT 95
[2024-10-23] MEDS: HYDROmorphone INJ 2 MG/ML VIAL 1 MG IVP (01:45)
[2024-10-23 04:00] VITALS: BP 157/86; PULSE 73; RESP 20; TEMP 36.3; O2SAT 93
[2024-10-23] MEDS: HYDROcodone/APAP 5/325 TABLET 1 TAB PO (07:52)
[2024-10-23 08:00] VITALS: BP 143/75; PULSE 62; RESP 16; TEMP 37.1; O2SAT 92
[2024-10-23] MEDS: ENOXAPARIN SOD INJ 40 MG/0.4 ML SYRINGE SC (09:01)
[2024-10-23] MEDS: ASCORBIC ACID 250 MG TABLET 500 MG PO (09:01)
[2024-10-23] MEDS: ZINC SULFATE 220 MG CAPSULE PO (09:02)
[2024-10-23] MEDS: GABAPENTIN 300 MG CAPSULE PO (09:02)
[2024-10-23] MEDS: PANTOPRAZOLE 40 MG TABLET PO (09:02)
[2024-10-23] MEDS: MONTELUKAST SODIUM 10 MG TABLET PO (09:02)
[2024-10-23] MEDS: DOCUSATE SOD 100 MG CAPSULE PO (09:02)
[2024-10-23] MEDS: bisacodyL 5 MG TABEC 10 MG PO (09:22)
[2024-10-23 12:00] VITALS: BP 146/75; PULSE 73; RESP 16; TEMP 36.6; O2SAT 93
--- NOTE | 2024-10-23 12:00 | ESDS_ITS ---
Planned Discharge Date 10/23/24 DS: Providers Provider Date of admission: 10/17/24 09:05 Primary care physician: Ramon Young MD Admitting Provider: Jenn Hopper MD Attending Provider on Admission: Jenn Hopper MD Attending Provider on DC: Jenn Hopper MD Discharging Provider: Jenn Hopper MD Diagnosis Problem List Completed Was Problem List Reviewed/Reconciled?: Yes Hospital Course Brief History: 68-year-old male with history of perforated diverticulitis had undergone sigmoid colectomy with end colostomy. He has had colonoscopy that was unremarkable. Patient was scheduled underwent exploratory laparotomy with lysis of adhesions and reversal of colostomy. His Méndez catheter was removed on postop day #1, he was able to void without difficulty. Patient was started on clear liquids on postop day #2 and his diet was gradually advanced. He was eating tolerating diet well without nausea or vomiting. He started passing flatus and had bowel movements. He has remained hemodynamically stable throughout the hospital ization. His incisions are clean, dry and intact. He is being discharged home in stable condition. Status at Discharge Functional status at discharge: independent ambulation Overall status at discharge: patient is progressing back to baseline Exam Vital Signs Temp Pulse Resp BP Pulse Ox O2 Del Method O2 Flow Rate 98.7 F 62 16 143/75 H 92 L Room Air 1 10/23/24 08:00 10/23/24 08:00 10/23/24 08:00 10/23/24 08:00 10/23/24 08:00 10/23/24 08:00 10/18/24 00:00 Constitutional Constitutional: no acute distress Routine Abdominal Exam Comments: Abdomen is soft and very minimally distended. Incisions are clean, dry and intact Discharge Plan Plan Patient Disposition: HOME (Self Care) Prescriptions/Referrals Prescriptions/Med Rec: New ascorbic acid (vitamin C) [Vitamin C] 250 mg Tablet 500 mg PO BID Qty: 60 0RF docusate sodium 100 mg Capsule 100 mg PO BID Qty: 30 0RF zinc sulfate 50 mg zinc (220 mg) Capsule 220 mg PO QDAY Qty: 30 0RF hydrocodone-acetaminophen 7.5-325 mg tablet 1 tab PO Q6H MDD 4 PRN (Reason: pain (scale score 7-10)) Qty: 30 0RF Continued montelukast 10 mg tablet 10 mg PO DAILY Patient Comments: TAKE 1 TABLET BY MOUTH DAILY gabapentin 300 mg capsule 300 mg PO DAILY zinc 50 mg capsule 50 mg PO QDAY ascorbic acid (vitamin C) [C-500] 500 mg tablet 500 mg PO QDAY simvastatin 40 mg tablet 40 mg PO HS Patient Comments: TAKE 1 TABLET BY MOUTH EVERY NIGHT AT BEDTIME Eliquis DVT-PE Treat 30D Start 5 mg (74 tabs) tablets,dose pack 5 mg PO BID Qty: 74 0RF pantoprazole 40 mg tablet,delayed release (DR/EC) 40 mg PO QDAY Patient Comments: TAKE 1 TABLET BY MOUTH DAILY hydroxyzine pamoate 25 mg capsule 25 mg PO .qhs Patient Comments: TAKE 1 TO 2 CAPSULES BY MOUTH DAILY AT BEDTIME NEEDED Referrals: Ramon Young MD [Primary Care Provider] - Patient/Caregiver Discharge Instructions Discharge Activity: activity as tolerated Print Language: [place] Activity Restrictions/Additional Instructions: May resume Eliquis tomorrow. May shower. Keep incisions clean and dry may cover with dry dressings daily. Wear abdominal binder at all times. Avoid lifting, straining, pulling or pushing for 8 weeks. May take oral [id number] laxatives if no bowel movement in 2 days. Follow-up with Dr Hopper in 2 weeks, please call [phone] for an appointment. Continue soft diet for 1 week then advance diet as tolerated. Stand Alone Forms: [facility] Award Info., Patient Portal Info Letter Discharge Order Discharge Orders: Discharge (Routine); Ordered 10/23/24 Ordered By: Jenn Hopper Procedures Procedure Date 10/17/24 Procedures Exploratory laparotomy, reversal of colostomy
== END 2024-10-23 13:37 | disposition home or self-care (01) | DRG 331 ==
LOC: S2W1 09:17 → S3SX 17:57
PROVIDERS: Anesthesiology; Admitting Provider Surgery; PCP Family Medicine; Visit Provider Surgery
PROC: 0DBN0ZZ Excision of Sigmoid Colon, Open Approach (ICD-10-PCS; CPT 49000; principal; 2024-10-17 10:45)
DX: Z43.3 Encounter for attention to colostomy (principal); K43.5 Parastomal hernia without obstruction or gangrene; K66.0 Peritoneal adhesions (postprocedural) (postinfection)
CPT/HCPCS: 36415; 80053; 80069; 83735; 85025; 93005; A4217; A4649; J0131; J0694; J1100; J1171; J1650; J2250; J2405; J2470; J2704; J3010; J3480; J3490; J7030; J7120; A9270; J0665

== ENCOUNTER → 2024-11-14 | Outpatient (CLI) | payer MEDICARE, SELFPAY ==
[2024-11-14 10:23] LABS: Basophils # (Auto) 0.1 Thou/mm3 (0.0-0.2); Basophils % (Auto) 1 % (0-2.5); Eosinophils # (Auto) 0.3 Thou/mm3 (0.0-0.5); Eosinophils % (Auto) 4 % (0-10); Hemoglobin 12.4 g/dL (13.5-16.0); Immature Granulocytes % (Auto) 0 % (0-0); Immature Granulocytes Auto 0.03 Thou/mm3 (0.00-0.00); Lymphocytes # (Auto) 2.1 Thou/mm3 (1.0-4.8); Lymphocytes % (Auto) 28 % (10-50); Mean Corpuscular Hemoglobin 24.3 pg (25.0-35.0); Mean Corpuscular Volume 78 fL (80-100); Monocytes # (Auto) 0.7 Thou/mm3 (0.0-0.8); Monocytes % (Auto) 9 % (0-12); Neutrophils # (Auto) 4.5 Thou/mm3 (1.8-7.7); Neutrophils % (Auto) 58 % (37-80); Nucleated Red Blood Cell % 0 /100 WBC (0); Platelet Count 258 Thou/mm3 (140-440); White Blood Count 7.8 Thou/mm3 (3.8-10.6)
[2024-11-14 10:35] LABS: Alanine Aminotransferase 27 U/L (10-49); Albumin, Serum 4.7 gm/dL (3.4-4.8); Albumin/Globulin Ratio 1.9 (1.2-2.2); Alkaline Phosphatase 77 U/L (46-116); Anion Gap 10 (7-16); Aspartate Amino Transferase 19 U/L (0-34); BUN/Creatinine Ratio 8 Ratio (12-20); Blood Urea Nitrogen 9 mg/dL (9-23); Calcium 9.9 mg/dL (8.3-10.6); Calcium (Corrected) 9.9 mg/dL (8.5-10.1); Carbon Dioxide 26.3 mMol/L (20.0-31.0); Chloride 103 mMol/L (98-107); Creatinine (Component) 1.1 mg/dL (0.6-1.3); Globulin 2.5 gm/dL (2.3-3.5); Glucose 110 mg/dL (74-106); Osmolality,Calculated 277 (275-295); Potassium 4.1 mMol/L (3.4-5.1); Sodium 139 mMol/L (136-145); Total Protein 7.2 gm/dL (5.7-8.2); eGFR > 60 See Note
[2024-11-14 15:53] LABS: Clostridium Difficile PCR Negative (Negative)
== END | disposition home or self-care (01) ==
PROVIDERS: PCP Family Medicine; Referring Provider Family Medicine; Visit Provider Family Medicine
DX: R10.84 Generalized abdominal pain (principal); R79.9 Abnormal finding of blood chemistry, unspecified
CPT/HCPCS: 36415; 80053; 85025; 87015; 87045; 87046; 87077; 87177; 87209; 87493; 87899

== ENCOUNTER → 2025-02-17 | Outpatient (CLI) | payer MEDICARE, SELFPAY ==
--- NOTE | 2025-02-17 16:27 | XR_ITS ---
Examination: Shoulder,left, 3 views Technique: Shoulder AP internal rotation, AP external rotation, Y view shoulder, 3 views Exam date and time :February 17, 2025, 1636 hours INDICATIONS: Shoulder pain one year post injury one year ago FINDINGS: Moderate narrowing glenohumeral joint No acute shoulder fracture or dislocation. 20 mm left AC joint separation Multiple old healed left rib fractures IMPRESSION: No acute shoulder fracture 20 mm left AC joint separation
== END | disposition home or self-care (01) ==
LOC: CDIM 16:23
PROVIDERS: PCP Family Medicine; Referring Provider Family Medicine; Visit Provider Family Medicine
DX: S43.102A Unspecified dislocation of left acromioclavicular joint, initial encounter (principal); X58.XXXA Exposure to other specified factors, initial encounter
CPT/HCPCS: 73030